=== PATIENT | male | born 1945 | race Caucasian/White ===

== ENCOUNTER 2020-09-25 09:00 | Inpatient (IN) | payer OTHER, SELFPAY ==
[~2020-09-25] VITALS: Ht 182.9 cm; Wt 103.0 kg
[2020-09-25] VITALS (41 sets, daily range): BP systolic 78–148; BP diastolic 46–103
--- NOTE | 2020-09-25 09:00 | NUR ---
PATIENT PRESENTS TO ED WITH C/O BACK PAIN, S/P FALL FROM BED . PT STATES IS 3 WEEKS POST-OP BACK SURGERY . DENIES N/V/D; SKIN IS PINK/WARM/DRY; AAOX4 LUNGS CLEAR BL; HR EVEN AND RAPID; PT DENIES ANY FEVER, CP, SOB, OR COUGH AT THIS TIME; PATIENT STATES PAIN OF 10/10 AT THIS TIME; VSS; PATIENT POSITIONED FOR COMFORT; HOB ELEVATED; BEDRAILS UP X2; BED DOWN. ER MD MADE AWARE OF PT STATUS.
[2020-09-25] MEDS ORDERED: ACET-5636 PO ×2 (09:16→15:43)
[2020-09-25] MEDS ORDERED: DIGO0.122 PO (09:16)
[2020-09-25] MEDS ORDERED: GABA300C PO ×4 (09:16→15:43)
[2020-09-25] MEDS ORDERED: ALBU-118 IH ×2 (09:16→15:43)
[2020-09-25] MEDS ORDERED: DOCU-299 PO ×2 (09:16→15:43)
[2020-09-25] MEDS ORDERED: AMIO200T65 PO (09:16)
[2020-09-25] MEDS ORDERED: ATOR10TA PO ×2 (09:16→15:43)
[2020-09-25] MEDS ORDERED: MIRABULK PO (09:16)
[2020-09-25] MEDS ORDERED: PRED20TA5 PO (09:16)
[2020-09-25] MEDS ORDERED: [UNRECOGNIZED DRUG - CODE] OP (09:16)
[2020-09-25] MEDS ORDERED: SENN-72 PO (09:16)
[2020-09-25] MEDS ORDERED: INSU100S22 SUBQ ×2 (09:16→15:43)
[2020-09-25] MEDS ORDERED: CEFE2SOL IV (09:16)
[2020-09-25] MEDS ORDERED: METH-1681 PO ×2 (09:16→15:43)
[2020-09-25] MEDS ORDERED: MAGN400S60 PO ×2 (09:16→15:43)
[2020-09-25] MEDS ORDERED: FURO-570 PO ×2 (09:16→15:43)
[2020-09-25] MEDS ORDERED: DIGOXIN 0.125 MG TAB PO ONE (09:50)
[2020-09-25] MEDS ORDERED: AMIODARONE 200 MG TAB PO ONE (09:50)
--- NOTE | 2020-09-25 09:50 | NUR ---
SPOKE WITH PER TELEPHONE.
[2020-09-25 09:56] LABS: BASOPHILS % (AUTO) 0.1 % (0.0-2.0); HEMATOCRIT 34.8 % (36-52); HEMOGLOBIN 11.3 g/dL (12.0-18.0); LYMPHOCYTES # (AUTO) 1.3 K/uL (2.0-11.5); LYMPHOCYTES % (AUTO) 9.4 % (20.5-51.1); MEAN CORPUSCULAR HEMOGLOBIN 29 pg (27-31); MEAN CORPUSCULAR HGB CONC 33 g/dL (33-37); MEAN CORPUSCULAR VOLUME 88.4 fL (80-94); MONOCYTES # (AUTO) 1.2 K/uL (0.8-1.0); MONOCYTES % (AUTO) 9.1 % (1.7-9.3); NEUTROPHILS # (AUTO) 10.8 K/uL (1.8-7.7); NEUTROPHILS % (AUTO) 81.4 % (42.2-75.2); PLATELET COUNT (AUTO) 210 K/uL (140-450); RED BLOOD CELL COUNT(AUTO) 3.94 MIL/uL (4.20-6.10); RED CELL DISTRIBUTION WIDTH 14.4 % (11.6-13.7); WHITE BLOOD COUNT (AUTO) 13.3 K/uL (4.8-10.8)
--- NOTE | 2020-09-25 10:10 | NUR ---
FELIZ SWAB SWAB OBTAINED AND SENT TO LAB
[2020-09-25 10:16] LABS: ALBUMIN 2.3 g/dL (3.4-5.0); ANION GAP 15.2 (8-16); ASPARTATE AMINOTRANSFERASE 18 U/L (15-37); CARBON DIOXIDE 28.7 mmol/L (21-32); CHLORIDE 108 mmol/L (98-107); CREATININE 2.4 mg/dL (0.6-1.3); GLUCOSE 373 mg/dL (74-106); POTASSIUM 4.9 mmol/L (3.5-5.1); SODIUM SERUM 147 mmol/L (136-145); TOTAL BILIRUBIN 1.1 mg/dL (0.0-1.0)
--- NOTE | 2020-09-25 10:16 | NUR ---
ARCELIA SWAB DONE AND WALKED TO LAB
[2020-09-25 10:17] LABS: PROTHROMBIN TIME 14.1 secs (10.8-13.4)
--- NOTE | 2020-09-25 10:20 | NUR ---
ABG DRAWN ON 4L FiO2. RESPIRATORY EFFORT HAS INCREASED. PT IS APPEARING TIRED.
[2020-09-25 10:27] LABS: UREA NITROGEN, BLOOD 63 mg/dL (7-18)
--- NOTE | 2020-09-25 10:45 | NUR ---
18G SL ESTABLISHED RIGHT UPPER ARM
--- NOTE | 2020-09-25 10:55 | NUR ---
TO CT VIA CARMEN, MONITORED
--- NOTE | 2020-09-25 11:05 | NUR ---
RETURNED FROM CT
[2020-09-25] MEDS ORDERED: ASPIRIN 325 MG TAB PO ONE (11:10)
[2020-09-25] MEDS ORDERED: AMIODARONE 450 MG in DEXTROSE 5% 250 ML IV STA (11:37)
[2020-09-25] MEDS ORDERED: FUROSEMIDE 40 MG/4 ML VIAL IVP ONE (11:40)
[2020-09-25] MEDS ORDERED: MORPHINE SULFATE 4 MG/ML SYR IVP ONE (11:40)
[2020-09-25] MEDS ORDERED: MORPHINE SULFATE 4 MG/ML SYR ONE (11:50)
[2020-09-25] MEDS ORDERED: LIDOCAINE 2% 1000 MG/50 ML VIAL INJ ONE (11:55)
[2020-09-25] MEDS ORDERED: AMIODARONE 150 MG/3 ML VIAL IV ONE (11:58)
[2020-09-25] MEDS ORDERED: LIDOCAINE MPF 2% 100 MG/5 ML VIAL INJ SCH (12:00)
--- NOTE | 2020-09-25 12:19 | NUR ---
AMIODARONE 150MG/ 100CC D5W BEGUN TO RUN OVER 10 MINUTES
--- NOTE | 2020-09-25 12:25 | NUR ---
RECEIVED TELEPHONE REPORT FROM ER NURSE MIRELA SCOTT.
--- NOTE | 2020-09-25 12:25 | NUR ---
REPORT TO SONIA MCDANIEL
--- NOTE | 2020-09-25 12:34 | NUR ---
DR. NGUYEN AT BEDSIDE FOR PARACENTESIS.
--- NOTE | 2020-09-25 13:10 | NUR ---
TO ICU VIA GURNEY. ATTACHED TO BANK CASHIER
--- NOTE | 2020-09-25 13:10 | NUR ---
PT ARRIVED AT UNIT MOVED PT TO ICU BED 7, TOLERATED WELL, PT ON 4LPM O2 VIA NC, NO SOB NOTED, LUNG SOUNDS RONCHI WITH MOIST NONPRODUCTIVE COUGH, PT CONFUSED, BUT ABLE TO LET NEEDS KNOWN. IV TO L HAND 20G PATENT INTACT SL, IV TO R AC 18G PATENT INTACT SL, IV TO R FA 20G PATENT INTACT SL. SKIN INTACT. INITIAL ASSESSMENT DONE, ALL SAFETY PRECAUTION MET, ORIENT PT TO ROOM, CALL LIGHT WITHIN REACH, WILL CONTINUE TO MONITOR.
--- NOTE | 2020-09-25 13:25 | NUR ---
DR GUERRIER AT BEDSIDE EVALUATING PT.
[2020-09-25] MEDS ORDERED: DIGOXIN 0.25 MG/ML AMP IV ONE (13:26)
[2020-09-25] MEDS ORDERED: DIGOXIN 0.25 MG/ML AMP IV SCH (13:30)
[2020-09-25] MEDS: AMIODARONE 450 MG in DEXTROSE 5% 250 ML IV SCH ×2 (13:32→19:50)
--- NOTE | 2020-09-25 13:54 | NUR ---
MRSA SWAB AND COVID SWAB TAKEN AND SENT TO LAB.
--- NOTE | 2020-09-25 14:05 | NUR ---
DISCHARGE PLANNING: THIS IS A 75 Y/O MALE PATIENT FROM [facility], WHO WAS BIBA DUE S/P MECHANICAL FALL. PAST MEDICAL HISTORY INCLUDE HTN, DM, COPD WITH BASELINE O2 REQUIREMENT OF 4 LPM/NC, A FIB. INITIAL DIAGNOSIS OF RAPID A FIB WITH RVR/NSTEMI. CURRENT LABS INCLUDE WBC 13.3, H/H 11.3/34.8, NA/K 147/4.9, BUN/CREA 63/2.4, MAG 2.5, TROP 0.077. CT HEAD SHOWED NO ACUTE INTRACRANIAL HEMORRHAGE, MASS EFFECT OR MIDLINE SHIFT. 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 CERVICAL SPINE CT SHOWED NO ACUTE FRACTURE OR DISLOCATION OF THE CERVICAL SPINE, FUSION OF THE C2 AND C3 VERTEBRA, POST SURGICAL CHANGES RELATED TO POSTERIOR DECOMPRESSION FROM C3 TO C6 WITH LAMINECTOMIES WITH A PROMINENT FLUID COLLECTION IN THE LAMINECTOMY BED, WHICH MAY REPRESENT POST OPERATIVE SEROMA WITH CSF LEAK NOT EXCLUDED. CXR SHOWED PERIHILAR AND BIBASILAR INTERSTITIAL AND PATCHY AIRSPACE OPACITIES. ON AMIODARONE DRIP, HR 151. NOT SEEN BY ATTENDING YET. TENTATIVE DC PLAN BACK TO [facility] ONCE STABLE. Addendum: 09/28/20 at 1225 by Vidhi Curry CM S/P EGD BY DR MARSHALL 08/27/2020 - PEPTIC ESOPHAGITIS. RECOMMENDED IF FLUIDS, IV ANTIBIOTICS, NG TUBE SUCTION AND IV PROTONIX AND UPPER GI SERIES TODAY - NO SIGNS OF SMALL AND LARGE BOWEL OBSTRUCTION, LEFT NEPHROLITHIASIS. Addendum: 09/29/20 at 1135 by Vidhi Curry CM DOWNGRADED FROM ICU YESTERDAY. SURGICAL CONSULT IN PLACE AND NOT SEEN YET. ON AT 2LPM/NC, O2 SAT 98% Addendum: 09/29/20 at 1450 by Vidhi Curry CM PER BUNCH TRIMMER MOLD KINGA, PATIENT'S IS REQUESTING FOR ME TO CALL HER. CONTACTED PATIENT'S MAURICIO LEAROUGHS AT [phone]. PER MAURICIO, SHE IS HOPING THAT THE PATIENT WILL NOT HAVE SURGERY BECAUSE PATIENT HAS A FIB. SHE ALSO MENTIONED THAT THE LAST SURGERY THE PATIENT HAD IT TOOK HIM A WHILE TO RECOVER. SHE ALSO MENTIONED THAT WHEN PATIENT WAS AT [facility], ON HIS FIRST NIGHT THE PATIENT FELL. SHE ALSO VOICED OUT HER CONCERN THAT SHE DOES NOT WANT THE PATIENT TO GO TO A HALF-WAY ONCE READY FOR DC, SHE STATED THAT SHE RATHER HAVE HER AT HOME. DR. HURLEY MADE AWARE. Addendum: 09/30/20 at 0911 by Vidhi Curry CM CONTACTED TERRIE [facility] AT [phone] TO PROVIDE UPDATES ON PATIENT'S CONDITION. SHE MENTIONED THAT THE PATIENT'S CALLED HER YESTERDAY TO DISCUSS DISCHARGE PLANNING TO HOME WITH HOME HEALTH AND NOT TO A SNF. INFORMED HIM THAT I GOT A CALL FROM HER WELL YESTERDAY AND I DISCUSSED IT WITH THE ATTENDING WELL. SHE ALSO STATED FOR ANY DISCHARGE NEEDS WE CAN REACH OUT TO HER AND HER FAX NUMBER IS [phone]. I ALSO REQUESTED FOR THE AUTH. SHE PROVIDED ME WITH PENDING AUTH [id number], SHE STATED THEY DO NOT APPROVE IT UNTIL PATIENT IS DISCHARGED. WILL FOLLOW UP. Addendum: 09/30/20 at 1244 by Vidhi Curry CM [facility] THAT PER PATIENT'S THEY WANT TO TAKE THE PATIENT HOME. SHE STATED "IT'S OK, WE HAVE TO RESPECT HER DECISION." Addendum: 09/30/20 at 1622 by Vidhi Curry CM RECEIVED A CALL FROM PATIENT'S MAURICIO SHARMA, REQUESTING FOR A HOSPITAL BED, WHEELCHAIR AND A SHOWER CHAIR. I ALSO DISCUSSED WITH HER PT'S RECOMMENDATIONS FOR SNF AND SHE REPLIED "NO, NOT TO SNF. I WANT TO TAKE HIM HOME." SHE ALSO MENTIONED THAT SHE GETS A LOT OF HELP AT HOME AND HOME HEALTH WILL BE FINE." INFORMED HER THAT I WILL DISCUSS IT WITH THE INSURANCE. I ALSO INFORMED HER THAT PT RECOMMENDED HOSPITAL BED, WHEELCHAIR AND WALKER. SHE CLAIMED THAT THEY HAVE THE WALKER ALREADY. TERRIE [facility] MADE AWARE. SHE STATED TO FAX OVER THE ORDER. I ALSO INFORMED HER THAT PT RECOMMENDED THOSE DME'S WELL. ORDER TRANSCRIBED AND FAXED TO [facility]. Addendum: 10/01/20 at 1202 by Vidhi Curry CM RECEIVED A CALL FROM TERRIE [facility], REQUESTING UPDATES ON THIS PATIENT. ALL INFORMATION PROVIDED. I ALSO DISCUSSED DC PLAN WITH HER. I INFORMED HER THAT I HAD A LENGTHY CONVERSATION AGAIN WITH THE YESTERDAY REGARDING PT'S RECOMMENDATION TO SNF AND THE PATIENT'S SAID NO TO SNF. PER DENNISE, SHE HAD A CALL TOO FROM HER, TELLING HER THAT SHE WANTED THE PATIENT HOME. PER DENNISE, SHE DOES THINK THAT IT WILL BE SAFE FOR THE PATIENT TO GO BACK HOME. INFORMED DENNISE THAT I EXPLAINED IT TO THE PATIENT'S WELL. DENNISE SNEED MENTIONED THAT THEY ARE WORKING ON THE DME'S REQUESTED. CONTACTED PATIENT'S MAURICIO TO DISCUSS DC PLANNING AND STILL PERSISTENT WITH TAKING THE PATIENT HOME. INFORMED HER THAT PT SAW THE PATIENT AND RECOMMENDED FOR THE PATIENT TO GO TO A SNF. SHE STATED SHE WILL WAIT WHAT DR. HURLEY WILL RECOMMEND. Addendum: 10/01/20 at 1459 by Annika Caro RN DC PLANNING: CALLED DR LYNNE Hernández WEB CONTENT & SOCIAL MEDIA MANAGER REGARDING THE CONSULT. PER DR LYNNE Hernández HE HAS SEEN PATIENT WHEN HE WAS IN ICU AND WILL SEE THE PATIENT TONIGHT. TERRIE TO FOLLOW . Addendum: 10/02/20 at 0901 by Vidhi Curry CM LATE ENTRY FOR 10/01/2020: DISCUSSED [facility] DR. HURLEY. PER DR. HURLEY PATIENT IS NOT DOING WELL, ABDOMEN IS DISTENDED AGAIN AND IS NOT TOLERATING DIET. HE REQUESTED IF HE CAN HAVE A MEETING WITH THE PATIENT'S BETWEEN [phone] 10/02/2020 TO DISCUSS PATIENT'S CONDITION. 0845: CONTACTED PATIENT'S MAURICIO AND SHE CONFIRMED THAT SHE WILL BE HERE BETWEEN [phone] WITH HER SON. PER MAURICIO DR HURLEY CALLED HER YESTERDAY TO LET HER KNOW. DR. HURLEY MADE AWARE. Addendum: 10/02/20 at 1328 by Vidhi Curry CM 1045: RECEIVED A CALL FROM [facility] INFORMING ME THAT PATIENT'S FAMILY ARE IN THE LOBBY. DR. HURLEY MADE AWARE, HE STATED HE IS IN THE UNIT. HE STATED TO HAVE THE FAMILY SEE PATIENT FIRST WHILE HE IS FINISHING HIS ROUNDS AND HE WILL MEET WITH US IN THE CONFERENCE ROOM. MEET WITH THE PATIENT'S MAURICIO AND SON LESVIA AT THE FRONT LOBBY. EXPLAINED TO THEM THE RISKS COMING IN TO THE PATIENT'S ROOM AND THEY BOTH VERBALIZED UNDERSTANDING. ESCORTED PATIENT'S MAURICIO FIRST TO SEE THE PATIENT AND AFTER 10 MINS, I ESCORTED LESVIA. MET WITH THE PATIENT'S SON AND AT THE CONFERENCE ROOM TOGETHER WITH DR. HURLEY. DR. HURLEY THOROUGHLY EXPLAINED EVERYTHING TO THE PATIENT'S FAMILY. HE SAVITA ON THE PAPER EXACTLY WHAT'S GOING ON TO THE PATIENT. HE ALSO MENTIONED THAT FOR NOW WE WILL START THE PATIENT ON TPN TO SUPPLEMENT NUTRIONAL NEEDS, WILL LET THE ABDOMEN REST OVER THE WEEKEND AND HE WILL REEVALUATE. IF THE PATIENT DOES NOT RESPOND WILL HAVE SURGERY, GI OR IR EVALUATE THE PATIENT IF G-J TUBE IS DOABLE FOR THE PATIENT. ALL QUESTIONS AND CONCERNS ADDRESSED BY DR. HURLEY. PATIENT'S FAMILY REQUESTED IF THEY CAN SEE THE PATIENT AGAIN BY THE WINDOW ON MONDAY. BUNCH TRIMMER MOLD MADE AWARE. TERRIE KAP[facility]OR OF [facility] UPDATED OF THE PATIENT'S CONDITION AND FAMILY MEETING. SHE STATED SHE WILL FOLLOW UP WITH US WITH THE PLAN NEXT WEEK AND SHE WILL REACH OUT TO DR. HURLEY WELL. Addendum: 10/05/20 at 1534 by Annika Caro RN DC PLANNING: CURRENTLY ON 8L OXYMIZER NPO AND TPN. PER DR MARIA'S NOTES DISCUSSED WITH SURGERY/ IN DETAIL SPOKE WITH [facility] IR DR PA DOES NOT GJ TUBE PROCEDURES AND UPDATED DR BROWN. AWAITING FOR DR BROWN IF HE CAN PERFORM THE PROCEDURE AT [facility]. CM TO FOLLOW Addendum: 10/06/20 at 1131 by Annika Caro RN DC PLANNING: SPOKE WITH DR NINO REGARDING THE TRANSFER TO [facility], [facility] OR ANY OTHER CONTRACTED FACILITIES. CALLED [facility] [phone] SPOKE WITH DENNISE FALCON STATED WILL DISCUSS WITH HER OBJECT ORIENTED DEVELOPER AND WILL CALL BACK. PER DENNISE THEY ARE NOT CONTRACTED WITH [facility]. FAXED TO [phone] AND AWAITING FOR THE CALL.CM TO FOLLOW. Addendum: 10/06/20 at 1451 by Annika Caro RN DC PLANNING: RECEIVED A CALL FROM DENNISE FALCON FOR [facility] STATED DR MARIA AND [facility] OBJECT ORIENTED DEVELOPER DISCUSSED THE CASE AND DECIDED THAT DR MARIA TO DISCUSS WITH PT'S ABOUT HOSPICE AND WILL CALL [facility]. CALLED DR MARIA AND LEFT A MESSAGE. CM TO FOLLOW Addendum: 10/06/20 at 1647 by Annika Caro RN DC PLANNING DR MARIA CALLED PT'S MELANI TALKED TO HER AND HER SON MORE THAN 30 MIN EXPLAINED THE CHOICE PT SON SCREAMING FROM THE BACK GROUND, UNABLE TO UNDERSTAND THEM , FINALLY MELANI STATED OK TO TALK TO HOSPICE, DR MARIA RECOMMENDED [facility] AND WILL CONTACT MELANI. CM TO FOLLOW Addendum: 10/07/20 at 0964 by Theodore Jeff SS ZACHARIAH CONTACTED JOSE FROM [facility] [phone] TO SEE IF HOSPICE HAS SPOKE TO FAMILY. PER JOSE, FAMILY HAS NOT YET BEEN CONTACTED. ZACHARIAH PROVIDED PHONE NUMBER TO MAURICIO SHARMA [phone]. JOSE STATED THAT HE WILL CONTACT ZACHARIAH ONCE FAMILY IS CONTACTED. Addendum: 10/07/20 at 1126 by Annika Caro RN DC PLANNING: [facility] CONTACTED PT'S MELANI , AND SHE SEEMS TO BE DENIAL AND STATED SHE DOES NOT WANT HER TO AND REFUSED HOSPICE. CALLED [facility] SPOKE WITH CM DENNISE STATED SHE IS TRYING TO GET PATIENT TO [facility] AND HOUSE MABEL IS ASKING FOR COVID TEST. THE COVID TEST WE HAD IS FROM THE 09/25 ORDERED THE RAPID AND WILL FAX IS TO [facility]. I ASKED DENNISE IF WE CAN REQUEST TO ANOTHER HOSPITAL PER DENNISE THEY ARE NOT CONTRACTED WITH [facility], [facility] OR [facility], AND THE [facility] OBJECT ORIENTED DEVELOPER WANTED PT TO GO TO [facility]. HOW EVER [facility] IS CONTRACTED WITH [facility] AND [facility] AND PER DENNISE WILL ASK THE MD TO FAX IT TO THOSE 2 HOSPITALS. CALLED PT'S MELANI AND UPDATED HER . CM TO FOLLOW Addendum: 10/07/20 at 1410 by Annika Gordo RN DC PLANNING: RAPID COVID TEST NEGATIVE FAXED TO [facility] , SPOKE WITH LORE BYRD STATED NO BED AVAILABLE THEIR ER IS BUSY. CALLED [facility] [phone] SPOKE WITH MONICA CHEESE GRADER STATED NEEDS AUTH FROM [facility] BEFORE HE START THE CASE. CALLED [facility] SPOKE WITH DENNISE REQUESTING THE AUTH FOR [facility]. PER DENNISE SHE IS UNABLE TO GIVE AUTH TO [facility] BECAUSE HER OBJECT ORIENTED DEVELOPER WANTED PT TO GO TO [facility] AND WILL DISCUSS WITH AND CALL BACK.CM TO FOLLOW. Addendum: 10/07/20 at 1559 by Theodore Jeff SS ZACHARIAH CONTACTED [facility] AND ARRANGED WILL CALL TRANSPORTATION. ZACHARIAH SPOKE WITH LAINEY AT [facility] FOR TRANSPORTATION TO [facility]. ZACHARIAH INFORMED LAINEY THAT ROOM NUMBER WAS NOT YET GIVEN. ZACHARIAH PROVIDED RAY [facility]SP[facility] AUTH #[id number]. Addendum: 10/07/20 at 1610 by Annika Caro RN DC PLANNING: SPOKE WITH DR MARIA STATED HE WILL BE THE ACCEPTING DR AT [facility] AND THE SURGEON WILL BE DR FRY. NOTIFIED [facility] PER DENNISE SHE PROVIDE THE AUTH# FOR [facility] AND FOR TRANSPORT AUTH # FOR [facility] [id number]. CALLED [facility] SPOKE WITH SUZAN TORREZ SUP STATED THEY HAVE NO BED AVAILABLE AT THIS TIME, PROVIDE UNIT NUMBER AND PLACE THE TRANSPORT WILL CALL WITH CM TO FOLLOW Addendum: 10/08/20 at 0927 by Annika Caro RN DC PLANNING: CALLED [facility] SPOKE WITH ROCHELLE TORREZBUNCH TRIMMER MOLD STATED NO BED AVAILABLE AT THIS TIME THEIR ER HAS 15 PATIENT WAITING TO BE ADMITTED. PER ROCHELLE THEY RECEIVED THE AUTH FROM [facility] AND ONCE THEY HAVE A BED WILL CALL CM TO FOLLOW. Addendum: 10/08/20 at 1620 by Annika Caro RN DC PLANNING: RECEIVED A CALL FROM PT'S MELANI STATED DR OVIEDO CALLED HER AND DISCUSSED THE OTHER OPTION TO INSERT A TEMPORARY TUBE THROUGH NGT TO J-TUBE AND START FEEDING FOR 2 WEEKS . MELANI AGREED AND UNDERSTOOD AND SEEMS VERY HAPPY. I ASKED HER ABOUT THE TRANSFER TO [facility], SHE SAID SHE CALLED AND HOUSE SUP TOLD HER PEOPLE ARE WAITING AT THE PARKING LOT AND IT WON'T HAPPEN TONIGHT, HOWEVER I ASKED HER JUST INCASE WHAT WOULD SHE WANT IF [facility] CALL TO CANCEL IT OR TRANSFER , SHE WANTED US TO ASK DR OVIEDO AND SHE WILL AGREE WITH HIS DECISION. MELANI ALSO TALKED TO DR MARIA AND SHE AGREED WITH MD'S DECISION. CM TO FOLLOW Addendum: 10/09/20 at 1226 by nAnika Caro RN DC PLANNING: PT HAS A SCHEDULE FOR EGD TO INSERT NG TO J TUBE FOR FEEDING BY DR OVIEDO NO TIME YET. CALLED [facility] SPOKE WITH DENNISE AND DISCUSSED THE DC PLAN AFTER THE TUBE INSERTION, AND MD WANTED TO TRY IT FOR 2 WEEKS . SNF MIGHT NOT BE APPROPRIATE FOR NGT CARE BECAUSE PT MIGHT NEED RESTRAINTS AND NO SNF ARE TAKING PT WITH RESTRAINTS AND RECOMMENDED LTAC BECAUSE MIGHT BE ABLE TO INSERT THE G-J TUBE WELL IF NEEDED. HERSON KAPOOR WILL PRESENT IT TO HER OBJECT ORIENTED DEVELOPER AT THE SAME TIME I INFORMED DR MARIA TO RECOMMEND LTAC TO [facility]. CALLED [facility] SPOKE WITH LORE HEAD STATED SHE HAS 25 PEOPLE ARE WAITING FOR BED MOST LIKELY NOT TODAY. FAXED TO CONTRACTED FACILITY [facility] AND [facility]. CM TO FOLLOW Addendum: 10/09/20 at 1628 by Jen Urias CM [facility] PLACED CALL TO PT'S ; [facility] UPDATED PT'S ON ORDER FOR LTAC EVALUATION. PTS' WOULD LIKE TO SPEAK WITH THE LTAC LIAISON. PT'S STATES THAT SHE IS AGREEABLE TO A LTAC EVALUATION. PT'S WOULD LIKE PT TO GO TO THE [place] LOCATION; PT'S LIVES IN [place]. [facility] HAS UPDATED CM WHO WILL REACH OUT TO LTAC LIAISON. Addendum: 10/12/20 at 1145 by Annika Caro RN DC PLANNING: [facility] SPOKE WITH DENNISE, NOTIFIED HER THAT [facility] IS ACCEPTING PATIENT AND NEEDS AUTHORIZATION. PER DENNISE SHE WILL HAVE A MEETING AT 2 PM AND WILL DISCUSS WITH HER MEDICAL DR AND WILL CALL BACK AT THE SAME TIME I SPOKE WITH DR KINGSLEY TO REACH OUT THE [facility] TO DISCUSS THE NEED FOR LTAC. [facility] WANT[facility] TO SEND PT TO [facility] BUT MELANI WANTED [facility] AND CALLING THE INSURANCE TO GET APPROVAL TO [place]. FAXED TO [facility] ([facility]). CM TO FOLLOW Addendum: 10/12/20 at 1549 by Annika Caro RN DC PLANNING: CALLED [facility] SPOKE WITH DENNISE STATED THE CUTTER GRINDER OPERATOR AND HERSELF TALKED TO PT'S AND AT THIS TIME THEY ARE WAITING FOR THE PEER TO PEER DISCUSSION. I UPDATED HER PB IS ON THE LOW SIDE 85/58 , PRESSURE ULCER PER DENNISE WAITING FOR MD -. CALLED DR KINGSLEY TO DISCUSSED THE NEED FOR LTAC . CM TO FOLLOW Addendum: 10/13/20 at 1124 by Aranza Jack CM TERRIE Roblero discussed with Dr Kingsley, pt pulled out NGT, plan for LTAC will do Md to . New order for aide aguayo. Called & spoke with Dennise FALCON @ [place], ph [phone], states MD to was done already this am around 1030 & plan for SNF, no LTAC auth'd. Per Dennise per Md kinsey Kingsley is getting GI consult to see pt & if ok for NGT to be replaced & dc to SNF with NGT then plan for dc to SNF. Per Dennise pt needs to be on 4L or less to dc to SNF & no restraints. They will give 3days of sitter to SNF. If pt requires restraints, will need to stay here until able to be off restraints, will not auth LTAC. States that her business manager college or university has spoken with pt's regarding no LTAC & auth for SNF. Per Dennise Farley [facility] has accepted pt with NGT, she will f/u with SNF to make sure pt accepted & have bed. GI pending, swallow re-eval pending. Addendum: 10/14/20 at 1620 by Annika Caro RN DC PLANNING: PT FAILED SWALLOWING EVAL. DR OVIEDO ORDERED TO RESTART TPN AND WILL FOLLOW UP ON MONDAY. NOTIFIED [facility] SPOKE WITH DENNISE STILL DENIED LTAC. CM TO FOLLOW Addendum: 10/16/20 at 1446 by Annika Caro RN DC PLANNING: DR OVIEDO CANCELED THE ENTEROSCOPY WITH JEJUNOSTOMY, BECAUSE PT STARTED EATING ,ADEQUATE ORAL INTAKE AT THIS TIME. SPOKE WITH DR KINGSLEY ADVANCED DIET TO FULL LIQUID AND DC PLAN TO GO TO SNF. [facility] WILL ACCEPT PATIENT CAN GO TO ROOM 37A # TO GIVE REPORT [phone] . I HAD A LONG TALK WITH MELANI HIS EXPLAINED THAT PT NEEDS 24 HR CARE AND IF SHE HAS HELP PER MELANI SHE CAN NOT TAKE CARE OF HIM AT HOME BUT STILL ITS HARD FOR HER TO DECIDE I EXPLAINED BY TOMORROW SHE HAS TO DECIDE, IF SHE WANTED HOME WITH 24 HR CARE SHE HAS TO SIGN HOSPICE. MELANI AGREED AND OK TO DC TO SNF TOMORROW. Addendum: 10/16/20 at 1616 by Annika Caro RN DC PLANNING: STILL WAITING FOR [facility] FOR AUTH # FOR TRANSPORT PER JOSE WILL PLACE IT WILL CALL FOR TOMORROW. PLS CALL [facility] AT [phone] FOR TRANSPORT DC PLAN TO GO TO [facility].
--- NOTE | 2020-09-25 14:43 | NUR ---
Patient will be admitted to care of DR ARECHIGA. Admited to ICU. Will go to room 07. Belongings list completed. Report to BIMAL SCOTT.
--- NOTE | 2020-09-25 14:50 | NUR ---
TALKED TO DR. LYNNE Hernández REGARDING PT AMIODARNE DRIP, PER DR BATISTA TO RUN THE DRIP @ 1MG/HR PER PROTOCOL. AND TO ORDER CARDIZEM 10MG IVP RIGHT NOW AND TO MONITOR PT HR IF HR DOES NOT GO BELOW 120, PER DR TO GIVE ANOTHER DOSE OF CARDIZEM 10MG IVP. WILL PUT IN ORDER AND CONTINUE WITH ORDERS.
[2020-09-25] MEDS ORDERED: DILTIAZEM 25 MG/5 ML VIAL IVP SCH ×2 (15:15→16:45)
[2020-09-25] MEDS ORDERED: DOCUSATE SODIUM 100 MG GELCAP PO PRN (15:45)
[2020-09-25] MEDS ORDERED: DEXTROSE 50% 50 ML SYR IVP PRN (16:55)
[2020-09-25] MEDS: BLOOD GLUCOSE MONITORING 1 DEV DEV FS SCH ×2 (17:16→21:00)
[2020-09-25] MEDS: INSULIN LISPRO SLIDING SCALE 100 UNITS/ML VIAL SUBQ PRN (17:16)
[2020-09-25] MEDS: methocarbamoL 500 MG TAB PO SCH ×2 (17:29→20:07)
--- NOTE | 2020-09-25 17:29 | NUR ---
DUE MEDICATION GIVEN, PT TOLERATED WELL, BLOOD SUGAR 386, 10 UNITS HUMALOG INSULIN GIVEN PER PROTOCOL. WILL CONTINUE TO MONITOR.
--- NOTE | 2020-09-25 17:55 | NUR ---
PT'S AT [facility], BABY CAMERA MONITOR TAKEN TO HER TO SEE PT ON MONITOR WHILE ON THE PHONE WITH PT AND .
--- NOTE | 2020-09-25 19:15 | NUR ---
ENDORSED PT TO CALL OR CONTACT CENTRE COACH NURSE BRANDON SCOTT FOR CONTINUOUS OF CARE
--- NOTE | 2020-09-25 19:38 | NUR ---
DR LYNNE Hernández IN THE UNIT; UPDATED ON PTS PRESENT CONDITION.QUESTIONS ANSWERED.MD AWARE HR UP TO 150'S AND LOW BP ; TO START LEVOPHED DRIP.MD ALSO AWARE THAT PT IS STILL ON AMIODARONE DRIP
[2020-09-25] MEDS ORDERED: NOREPINEPHRINE 4 MG in DEXTROSE 5% 250 ML IV PRN (19:40)
[2020-09-25] MEDS: NACL 0.9% 1,000 ML IV SCH (19:45)
--- NOTE | 2020-09-25 20:00 | NUR ---
RECEIVED REPORT FROM DAY SHIFT RN. PATIENT IS A & O X [address] AFEBRILE. IRREGULAR HEART RHYTHM. PULSES +3 UPPER AND LOWER BILATERAL EXTREMITIES. AUSCULTATED CRACKLES IN LUNGS. PATIENT IS ON NC @ 4L/MIN. PATIENT IS NPO DUE TO MD ORDERS. LARGE/ROUND DISTENDED ABDOMEN, BS ACTIVE. PATIENT IS INCONTINENT. PATIENT HAS SCAR ON POSTERIOR NECK S/P SX. REDNESS BILATERALLY TO HEELS. SKIN WARM AND DRY BUT BILATERAL HANDS AND FEET ARE COLD TO TOUCH. OFFERED AN EXTRA BLANKET. PATIENT DENIES PAIN AND DENIES BEING COLD. PERIPHERAL IV ACCESS TO RT AC 18 G RUNNING AMIODARONE 0.5 MCG/HR. ASYMPTOMATIC, PATENT AND INTACT. IV ACCESS TO RT FA 20G AND LT HAND 20G. BOTH HEP LOCK, ASYMPTOMATIC, PATENT AND INTACT. NO S/S OF INFILTRATION, REDNESS OR PAIN. SAFETY MEASURES IN PLACE, BED LOW AND LOCKED, SIDE RAILS UP. CALL LIGHT WITHIN REACH. WILL CONTINUE TO MONITOR.
[2020-09-25] MEDS ORDERED: CRUSHER, PILL MC ONE (20:03)
[2020-09-25] MEDS: ATORVASTATIN 20 MG TAB PO SCH (20:07)
[2020-09-25] MEDS: GABAPENTIN 300 MG CAP PO SCH (21:00)
--- NOTE | 2020-09-25 21:20 | NUR ---
PATIENT WENT TO CT. MONITORS ATTACHED. OXYGEN IN PLACE ORDERED.
--- NOTE | 2020-09-25 21:50 | NUR ---
PATIENT CAME BACK FROM CT OF ABDOMEN AND PELVIS. NO INCIDENT NOTED.
[2020-09-26] VITALS (93 sets, daily range): BP systolic 85–153; BP diastolic 41–119
--- NOTE | 2020-09-26 | NUR ---
REPOSITIONED PATIENT, REORIENTED PT, DENIES PAIN/SOB. PATIENT ON NC @4LPM. OXYGEN SATURATION 90s. WILL CONTINUE TO MONITOR.
--- NOTE | 2020-09-26 03:10 | NUR ---
CALLED DR BATISTA, UPDATED ABOUT PT'S CONDITION. MADE AWARE HR UP TO 160s. PT STILL ON AMIODARONE DRIP. PT CLAIMED HAVING CHEST/GENERALIZED PAIN. B/P 120s. ORDERED TO START CARDIZEM DRIP. MD AWARE LEVOPHED DRIP NOT STARTED.
[2020-09-26] MEDS ORDERED: DILTIAZEM 125 MG/25 ML VIAL IV ONE (03:11)
[2020-09-26] MEDS: DILTIAZEM 125 MG in DEXTROSE 5% 100 ML IV SCH ×2 (03:20→04:26)
--- NOTE | 2020-09-26 03:30 | NUR ---
PT INCONTINENT, CLEANED PT, NEW LINEN AND BLANKETS, DENIES PAIN. WILL CONT TO MONITOR
--- NOTE | 2020-09-26 04:26 | NUR ---
INCREASED CARDIZEM DRIP TO 15MG/HR. PT LATEST VITALS FOLLOWS: B/P: 123/65, HR: 127, SPO2: 98, RR: 40. ENCOURAGED PT TO DEEP BREATHE/RELAX. WILL CONT. TO MONITOR.
--- NOTE | 2020-09-26 05:49 | NUR ---
PT HAD EPISODE OF INCONTINENCE, PT CLEANED. NEW GOWN, CHUX. PT UPSET/SCREAMING BECAUSE HE IS NPO.
[2020-09-26 05:54] LABS: ALBUMIN 2.3 g/dL (3.4-5.0); ASPARTATE AMINOTRANSFERASE 24 U/L (15-37); CARBON DIOXIDE 31.7 mmol/L (21-32); CHLORIDE 109 mmol/L (98-107); CREATININE 2.1 mg/dL (0.6-1.3); GLUCOSE 289 mg/dL (74-106); POTASSIUM 3.7 mmol/L (3.5-5.1); SODIUM SERUM 148 mmol/L (136-145); TOTAL BILIRUBIN 0.6 mg/dL (0.0-1.0)
[2020-09-26 05:57] LABS: BASOPHILS # (AUTO) 0.1 K/uL (0.00-0.22); BASOPHILS % (AUTO) 0.5 % (0.0-2.0); EOSINOPHILS # (AUTO) 0.1 K/uL (0-0.4); EOSINOPHILS % (AUTO) 0.6 % (0.0-4.0); HEMATOCRIT 33.9 % (36-52); HEMOGLOBIN 10.9 g/dL (12.0-18.0); LYMPHOCYTES # (AUTO) 1.3 K/uL (2.0-11.5); LYMPHOCYTES % (AUTO) 9.6 % (20.5-51.1); MEAN CORPUSCULAR HEMOGLOBIN 28 pg (27-31); MEAN CORPUSCULAR HGB CONC 32 g/dL (33-37); MEAN CORPUSCULAR VOLUME 88.5 fL (80-94); MONOCYTES % (AUTO) 7.9 % (1.7-9.3); NEUTROPHILS # (AUTO) 10.8 K/uL (1.8-7.7); NEUTROPHILS % (AUTO) 81.4 % (42.2-75.2); PLATELET COUNT (AUTO) 231 K/uL (140-450); RED BLOOD CELL COUNT(AUTO) 3.83 MIL/uL (4.20-6.10); WHITE BLOOD COUNT (AUTO) 13.3 K/uL (4.8-10.8)
[2020-09-26 06:00] LABS: UREA NITROGEN, BLOOD 71 mg/dL (7-18)
--- NOTE | 2020-09-26 06:25 | NUR ---
CRITICAL LABS CALLED TO DR. NINO WITH NO CHANGE IN ORDERS. UPDATED ABOUT PT CONDITION. MADE HIM AWARE ABOUT THE CT ABDOMEN/PELVIS RESULT. IMPRESSION: 1.DISTENDED STOMACH SUSPICIOUS FOR A GASTRIC OUTLET OBSTRUCTION 2. FLUID WITHIN THE DISTAL ESOPHAGUS LIKELY REPRESENTING REFLUX FROM THE DISTAL STOMACH. 3. NON VISUALIZED APPENDIX LIMITING EVALUATION. MD MADE AWARE ABOUT PT BEING UPSET AND SCREAMING FOR FOOD. MD STATED HE CANNOT GIVE A DIET ORDER AT THIS TIME DUE TO SUSPICIOUS GASTRIC OBSTRUCTION. WILL CONTINUE TO MONITOR.
--- NOTE | 2020-09-26 07:15 | NUR ---
RECEIVED HANDOFF FROM BUSINESS PERFORMANCE ANALYST RN. PT IS A&OX2. PT IS ON 4 L NC. PT IS A FIB ON THE MONITOR. PT IS NPO EXCEPT MEDS. FOR ACCESS PT HAS RAC 18 G, R FA 20 G AND L H 22 G. AMIODARONE IS RUNNING AT 0.5 MG/MIN, CARDIZEM IS RUNNING AT 15 MG/HR. NS IS RUNNING AT 75 ML/HR. PT HAS DIAPER FOR VOIDING. HOB IS 30 DEG WITH BED IN LOW LOCKED POSITION. WILL CONTINUE TO MONITOR.
[2020-09-26] MEDS: BLOOD GLUCOSE MONITORING 1 DEV DEV FS SCH ×4 (07:30→21:44)
[2020-09-26] MEDS: INSULIN LISPRO SLIDING SCALE 100 UNITS/ML VIAL SUBQ PRN ×3 (08:00→17:05)
[2020-09-26] MEDS: FUROSEMIDE 40 MG TAB PO SCH (08:58)
[2020-09-26] MEDS: NACL 0.9% 1,000 ML IV SCH ×2 (08:58→21:15)
[2020-09-26] MEDS: methocarbamoL 500 MG TAB PO SCH ×4 (08:59→21:27)
[2020-09-26] MEDS: MAGNESIUM HYDROXIDE 2400 MG/30 ML UDC PO SCH (08:59)
[2020-09-26] MEDS: GABAPENTIN 300 MG CAP PO SCH ×2 (09:00→21:29)
[2020-09-26] MEDS ORDERED: ENOXAPARIN 40 MG/0.4 ML SYR SUBQ SCH (09:00)
[2020-09-26] MEDS ORDERED: DIGOXIN 0.25 MG TAB PO SCH (09:00)
--- NOTE | 2020-09-26 10:06 | NUR ---
ADMINISTERED SCHEDULED 9:00AM MEDICATIONS WITH MINIMAL WATER CONSUMPTION. CLEANED PT. BEDDING, PT ABLE TO REPOSITION SELF. ASSESSED GLUCOSE WHICH WAS 313, 8 UNITS OF COVERAGE WERE ADMINISTERED. PT. A/O X2: TO NAME AND PLACE. CRACKLES ALYSSA. LUNGS CURRENTLY AT 4 L NC,PT TOLERATING TREATMENT. S1, S2 NOTED. NORMAL BOWEL SOUNDS, ABD HARD AND DISTENDED, PT DOES NOT COMPLAIN OF ABD PAIN AT THIS TIME. IV LINES DRY,INTACT, INFUSING NS 75ML/HR. RADIAL AND PEDAL PULSES+2. PLACED NON SKID SOCKS D/T PT. COMPLAINING OF COLD FEET. PT CURRENTLY NPO, OFFERED ORAL CARE AND ASKED TO DO IT LATER. LEFT PT RESTING COMFORTABLY.
--- NOTE | 2020-09-26 10:58 | NUR ---
PT REQUESTED COLD WASH CLOTHS TO CLEANSE SELF, PROVIDED. PT RESTING COMFORTABLY
--- NOTE | 2020-09-26 11:30 | NUR ---
PATIENT HAS BEEN SCREENED AND CATEGORIZED HIGH NUTRITION RISK. PATIENT WILL BE SEEN WITHIN 1-2 DAYS OF ADMISSION. 09/26/20 09/27/[address]
[2020-09-26] MEDS ORDERED: PANTOPRAZOLE 40 MG INJ VIAL IVP SCH (11:35)
[2020-09-26] MEDS ORDERED: SODIUM PHOSPHATE 118 ML ENEM RC SCH (11:39)
--- NOTE | 2020-09-26 13:13 | NUR ---
R. FA IV 20G REMOVED AFTER NOTICING INFILTRATION, EDEMATOUS, NO ERYTHEMA. PT DENIES PAIN
--- NOTE | 2020-09-26 13:25 | NUR ---
PT VERY DROWSY, ENTERED ROOM TO INFORM HIM HIS ENEMA WAS TO BE ADMINISTERED, PT UNABLE TO MAINTAIN AWAKE, KEPT CLOSING EYES AND WOULD NOT ANSWER, CONTINUED TO ATTEMP TO AWAKE BY PERFORMING STERNAL RUB AND WOULD OPEN UP EYES AND RETURN TO CLOSE, FINGER STICK GLUCOSE CHECK WAS PERFOMED WITH LEVEL OF 328. PUPIL CHECK WAS PERFORMED, PERRLA, ASKED TO SQUEEZE HAND WHICH SHOWED STRENGTH 4/5. PT BEGAN TO OPEN EYES AND STARTED FOLLOWING COMMANDS, URINAL WAS PROVIDED FOR VOIDING, PT WAS POSITIONED RIGHT LATERAL RECUMBENT WITH L. KNEE TO CHEST FOR ENEMA ADMINISTRATION. FLEET ENEMA ADMINISTERED OVER 3 MIN PERIOD.PT TOLERATED PROCEDURE WELL. Addendum: 09/26/20 at 1559 by Mony Rosales RN RN CORRECTION: PT TIME [id number]
--- NOTE | 2020-09-26 13:36 | NUR ---
PT WAS CONSULTED BY DR. OVIEDO [facility], WHO INSERTED AN NG TUBE FOR DECOMPRESSION, ASSISTED PHYSICIAN WITH PROCEDURE. APPROXIMATELY 1500ML WAS DRAINED, PT. WAS PLACED ON INTERMITTED SUCTION. NG TUBE WAS SECURED TO NOSE. PT TOLERATED THE PROCEDURE WELL. Addendum: 09/26/20 at 1339 by Mony Rosales RN RN INSERTION WAS PLACED AT 1200
--- NOTE | 2020-09-26 14:05 | NUR ---
09/26/20 RD INITIAL ASSESSMENT COMPLETED PLEASE REFER TO NUTRITION ASSESSMENT UNDER CARE ACTIVITY FOR ESTIMATED NUTRITIONAL NEEDS. 1. WHEN/IF MEDICALLY APPROPRIATE RECOMMEND CLEAR LIQUID DIET AND ADVANCE TO [facility] 60 GM REGULAR DIET TOLERATED 2. RD TO FOLLOW-UP 2-3 DAYS, HIGH RISK ALBERTINA RUDD, ANGELIKA
--- NOTE | 2020-09-26 14:19 | NUR ---
PT REQUESTED TO SPEAK TO , MELANI ,WHO WAS ABLE TO CONFIRM IDENTITY BY ANSWERING ID INFORMATION OF PT,.CONTACTED HER AND SPOKE FOR A FEW, PT REMOVED DENTURES AND ASKED FOR THEM TO BE CLEANED WITH TOOTHPASTE WHICH I DID, PT REPLACED DENTURES AND CLAIMS FEEL BETTER COMFORTABLE AND MOUTH FEELS FRESH WHICH HELPS HIM FEEL MORE COMFORTABLE
--- NOTE | 2020-09-26 16:54 | NUR ---
FINGER GLUCOSE 263. PT L. HEEL HAS 2X2CM BLANCHABLE UNBROKEN SKIN AREA. HAS NON SKID SOCKS IN PLACE. COMFORTABLE IN BED.
--- NOTE | 2020-09-26 17:08 | NUR ---
ADMINISTERED 6 UNITS OF HUMALOG ON R. DELTOID SUBCUTANEOUS. GAVE ROBAXIN 500MG, CUT PILL IN HALF, PT HAS NG TUBE IN PLACE WHICH MAKES IT DIFFICULT TO SWALLOW, HAD DIFFICULTY SWALLOWING HALF A PILL, CRUSH THE OTHER HALF FOR SWALLOWING PURPOSES. PERFORMED ORAL CARE WITH WATER, PER PT. MAKES HIS MOUTH FEEL BETTER.
[2020-09-26] MEDS: DILTIAZEM 30 MG TAB PO SCH (18:30)
--- NOTE | 2020-09-26 18:51 | NUR ---
ADMINISTERED CARDIZEM 30MG, PILL WAS CRUSHED WITH 10ML OF WATER DUE TO PT.'S INABILITY TO SWALLOW WITH NG TUBE PLACED, ROCEPHIN IV ADMINISTERED PER MD ORDER, PROVIDED PT. WITH ORAL CARE AND GROOMING, NO BOWEL MOVEMENT YET SINCE ENEMA WAS ADMINISTERED.
--- NOTE | 2020-09-26 19:15 | NUR ---
HANDOFF GIVEN TO AUTO APPRAISER RN.
--- NOTE | 2020-09-26 19:16 | NUR ---
RECIEVED ENDORSEMENT FROM DAY SHIFT RN, PT A&0X2, PT RESTING, PT A-FIB ON MONITOR, PERIPHERAL PULSES PALPABLE, ABD DISTENDED, SUCTIONING CLAMPED, NGT TO R-NARE, CRACKLES BILATERAL, NC ON 4L, PT INCONTINENT, RAC 18 GAUGE, RH 22 GAUGE, RUNNING NS 75MLS/HR, PT HAS SCAR ON POSTERIOR NECK, SKIN INTACT AND DRY/WARM, REDNESS ON HEAL THAT IS BLANCHABLE, PT SHOWING SIGNS OF ACUTE DISTRESS, SAFETY MEASURES IN PLACE, WILL CONTINUE WITH CURRENT POC AND MONITORING
--- NOTE | 2020-09-26 20:03 | NUR ---
PT SPO2 91% ON 4LNC PT DENIES SOB WILL CONTINUE TO MONITOR
[2020-09-26] MEDS: PANTOPRAZOLE 40 MG INJ VIAL IVP SCH (21:21)
--- NOTE | 2020-09-26 21:30 | NUR ---
REPOSITIONED PT, PT AFEBRILE, ADMINISTRED 2100H MEDIATIONS PER ORDERED, PT BLOOG GLUCOSE 131, PT SHOWING NO SIGNS OF ACUTE DISTRESS, SAFETY MEASURES IN PLACE, WILL CONTINUE TO MONITOR
[2020-09-26] MEDS: AMIODARONE 200 MG TAB PO SCH (21:31)
[2020-09-26] MEDS: ATORVASTATIN 20 MG TAB PO SCH (21:31)
[2020-09-27] VITALS (38 sets, daily range): BP systolic 103–139; BP diastolic 50–96
--- NOTE | 2020-09-27 | NUR ---
TURNED AND REPOSITIONED PATIENT WITH MODERATE ASSISTANCE.
--- NOTE | 2020-09-27 00:15 | NUR ---
ADMINISTERED 0000H MEDICATION PER ORDERED, REPOSITIONED PT, PT REQUESTED ICE CHIPS, PT SHOWING NO SIGNS OF ACUTE DISTRESS, SAFETY MEASURES IN PLACE, WILL CONTNUE TO MONITOR
[2020-09-27] MEDS: DILTIAZEM 30 MG TAB PO SCH ×4 (00:22→18:19)
--- NOTE | 2020-09-27 02:10 | NUR ---
PT ASLEEP AND RESTING, PT SHOWING NO SIGNS OF ACUTE DISTRESS, SAFETY MEASURES IN PLACE, WILL CONTINUE TO MONITOR
--- NOTE | 2020-09-27 05:10 | NUR ---
REPOSITIONED PT, PT REQUESTING ICE SHIPS AND WATER, PT SHOWING NO SIGNS OF ACUTE DISTRESS, SAFETY MEASURES IN PLACE, WILL CONTINUE TO MONITOR
[2020-09-27 06:17] LABS: BASOPHILS % (AUTO) 0.1 % (0.0-2.0); EOSINOPHILS # (AUTO) 0.3 K/uL (0-0.4); EOSINOPHILS % (AUTO) 1.8 % (0.0-4.0); LYMPHOCYTES # (AUTO) 1.1 K/uL (2.0-11.5); LYMPHOCYTES % (AUTO) 6.7 % (20.5-51.1); MEAN CORPUSCULAR HEMOGLOBIN 29 pg (27-31); MEAN CORPUSCULAR HGB CONC 32 g/dL (33-37); MEAN CORPUSCULAR VOLUME 89.3 fL (80-94); MONOCYTES # (AUTO) 0.9 K/uL (0.8-1.0); MONOCYTES % (AUTO) 5.5 % (1.7-9.3); NEUTROPHILS # (AUTO) 13.7 K/uL (1.8-7.7); NEUTROPHILS % (AUTO) 85.9 % (42.2-75.2); PLATELET COUNT (AUTO) 243 K/uL (140-450); RED BLOOD CELL COUNT(AUTO) 3.47 MIL/uL (4.20-6.10); RED CELL DISTRIBUTION WIDTH 14.7 % (11.6-13.7); WHITE BLOOD COUNT (AUTO) 15.9 K/uL (4.8-10.8)
--- NOTE | 2020-09-27 06:30 | NUR ---
PT BLOOD GLUCOSE 201, INSULIN HELF FOR EGD
[2020-09-27 06:59] LABS: ANION GAP 15.7 (8-16); CARBON DIOXIDE 27.6 mmol/L (21-32); CHLORIDE 113 mmol/L (98-107); CREATININE 1.7 mg/dL (0.6-1.3); GLUCOSE 240 mg/dL (74-106); POTASSIUM 3.3 mmol/L (3.5-5.1); SODIUM SERUM 153 mmol/L (136-145); UREA NITROGEN, BLOOD 53 mg/dL (7-18)
[2020-09-27] MEDS: BLOOD GLUCOSE MONITORING 1 DEV DEV FS SCH ×4 (07:09→21:00)
[2020-09-27 07:22] LABS: MAGNESIUM 2.6 mg/dL (1.8-2.4); PHOSPHORUS 3.4 mg/dL (2.5-4.9)
--- NOTE | 2020-09-27 07:39 | NUR ---
ENDORSED TO DAY SHIFT RN FOR CONTINUITY OF CARE
--- NOTE | 2020-09-27 07:40 | NUR ---
RECEIVED BEDSIDE REPORT FROM EMS INSTRUCTOR NURSE MANUEL RN, PT RESTING, NO DISTRESS NOTED, PT ON 4LPM O2 VIA NC, NO SOB NOTED, IV TO R AC 18 G PATENT INTACT SL, IV TO L HAND 20G PATENT INTACT, INFUSING NS @ 75ML/HR, INFUSING WELL, PT AWAKE ALERT ABLE TO LET NEEDS KNOWN, PT SLEEPING AT THIS MOMENT, DENIES ANY PAIN, INITIAL ASSESSMENT DONE, ALL SAFETY PRECAUTION MET, CALL LIGHT WITHIN REACH, WILL CONTINUE TO MONITOR.
[2020-09-27] MEDS: GABAPENTIN 300 MG CAP PO SCH ×2 (09:00→21:54)
[2020-09-27] MEDS: PANTOPRAZOLE 40 MG INJ VIAL IVP SCH ×2 (09:00→21:53)
[2020-09-27] MEDS: FUROSEMIDE 40 MG TAB PO SCH (09:00)
[2020-09-27] MEDS: MAGNESIUM HYDROXIDE 2400 MG/30 ML UDC PO SCH (09:00)
[2020-09-27] MEDS: AMIODARONE 200 MG TAB PO SCH ×2 (09:00→12:54)
[2020-09-27] MEDS: DIGOXIN 0.125 MG TAB PO SCH (09:00)
[2020-09-27] MEDS: methocarbamoL 500 MG TAB PO SCH ×4 (09:00→21:55)
--- NOTE | 2020-09-27 09:00 | NUR ---
DUE MEDICATION IVP GIVEN, PT TOLERATED WELL, PO MEDICATIONS HELD D/T PT HAVING EGD SCHEDULED AT 0915. WILL CONTINUE TO MONITOR.
[2020-09-27] MEDS ORDERED: MIDAZOLAM 5 MG/5 ML VIAL ONE (09:33)
[2020-09-27] MEDS ORDERED: fentaNYL citrate 0.05 MG/ML VIAL ONE ×2 (09:33→09:42)
--- NOTE | 2020-09-27 09:34 | NUR ---
OR TECH AT BEDSIDE, PT EGD WILL BE DONE AT BEDSIDE BY DR OVIEDO.
[2020-09-27] MEDS ORDERED: MIDAZOLAM 2 MG/2 ML VIAL ONE (09:42)
--- NOTE | 2020-09-27 09:42 | NUR ---
VERSED 2MG AND FENTANYL 50MCG GIVEN IVP PER DR OVIEDO ORDER FOR PROCEDURE.
--- NOTE | 2020-09-27 10:00 | NUR ---
PROCEDURE DONE, PT TOLERATED WELL, PER DR OVIEDO TO HAVE PT ON INTERMITTENT SUCTION NGT. WILL CONTINUE WITH ORDERS.
--- NOTE | 2020-09-27 11:35 | NUR ---
REPORT GIVEN TO SONIA MOCTEZUMA FOR CONTINUOUS OF CARE.
--- NOTE | 2020-09-27 11:35 | NUR ---
RECEIVEF REPORT FROM JONAS . AWAKE BY NAME CALL. NG TUBE TO INTERMITTEN SUCTION HAS DARGABBIREEN MIRGI CONTENT RETURN.
[2020-09-27] MEDS: NACL 0.9% 1,000 ML IV SCH (12:54)
--- NOTE | 2020-09-27 15:00 | NUR ---
RECEIVED REPORT FROM MORNING RN FOR CONTINUITY OF CARE.
--- NOTE | 2020-09-27 17:15 | NUR ---
PT AWAKE IN BED. NO C/O PAIN, NO SOB, AFEBRILE. AOX2, ABLE TO VERBALIZE NEEDS
--- NOTE | 2020-09-27 17:30 | NUR ---
BLOOD SUGAR 225. COVERAGE GIVEN. DUE MEDS GIVEN VIA NGT
--- NOTE | 2020-09-27 19:00 | NUR ---
PT AWKE IN BED. WATCHING TV. NO SOB, O2SAT 96% ON 4L O2
--- NOTE | 2020-09-27 19:10 | NUR ---
RECEIVED PATIENT ON BED WITH HOB ELEVATED TO 30 DEGREE; AWAKE, ALERT ABLE TO FOLLOW SIMPLE COMMANDS, ON 4 LITERS , SO2 97%. CARDIACSCOPE SHOWS ON ATRIAL FIB. HR 109. IVF IN PROGRESS NORMAL SALINE AT 75 ML/HR VIA G 18 ON HAND; PATENT AND INTACT. ABDOMEN DISTENDED, NGT IN SITU TO INTERMITTENT LOW PRESSURE SUCTION DRAINING TO GREENISH GASTRIC OUTPUT; INTACT. VOIDING FREELY TO URINAL.
[2020-09-27] MEDS: ATORVASTATIN 20 MG TAB PO SCH (21:54)
[2020-09-28] VITALS (12 sets, daily range): BP systolic 91–142; BP diastolic 30–80
[2020-09-28] MEDS: DILTIAZEM 30 MG TAB PO SCH ×4 (00:21→17:05)
--- NOTE | 2020-09-28 02:00 | NUR ---
ICE CHIPS GIVEN PATIENT COMPLAINED OF DRY MOUTH.
--- NOTE | 2020-09-28 04:30 | NUR ---
MORNING BED BATH DONE WITH MODERATE ASSISTANCE.
[2020-09-28 05:28] LABS: BASOPHILS % (AUTO) 0.2 % (0.0-2.0); EOSINOPHILS # (AUTO) 0.2 K/uL (0-0.4); EOSINOPHILS % (AUTO) 1.4 % (0.0-4.0); HEMATOCRIT 31.8 % (36-52); LYMPHOCYTES # (AUTO) 1.1 K/uL (2.0-11.5); LYMPHOCYTES % (AUTO) 6.9 % (20.5-51.1); MEAN CORPUSCULAR HEMOGLOBIN 28 pg (27-31); MEAN CORPUSCULAR HGB CONC 31 g/dL (33-37); MEAN CORPUSCULAR VOLUME 90.3 fL (80-94); MONOCYTES # (AUTO) 0.9 K/uL (0.8-1.0); MONOCYTES % (AUTO) 5.4 % (1.7-9.3); NEUTROPHILS # (AUTO) 14.2 K/uL (1.8-7.7); NEUTROPHILS % (AUTO) 86.1 % (42.2-75.2); PLATELET COUNT (AUTO) 268 K/uL (140-450); RED BLOOD CELL COUNT(AUTO) 3.53 MIL/uL (4.20-6.10); RED CELL DISTRIBUTION WIDTH 14.7 % (11.6-13.7); WHITE BLOOD COUNT (AUTO) 16.5 K/uL (4.8-10.8)
[2020-09-28 06:09] LABS: ANION GAP 11.8 (8-16); CARBON DIOXIDE 25.8 mmol/L (21-32); CHLORIDE 117 mmol/L (98-107); CREATININE 1.6 mg/dL (0.6-1.3); GLUCOSE 208 mg/dL (74-106); POTASSIUM 3.6 mmol/L (3.5-5.1); SODIUM SERUM 151 mmol/L (136-145); UREA NITROGEN, BLOOD 40 mg/dL (7-18)
[2020-09-28 06:14] LABS: MAGNESIUM 2.5 mg/dL (1.8-2.4)
--- NOTE | 2020-09-28 07:15 | NUR ---
ENDORSED TO AM SHIFT RN MARJAN FOR CONTINUITY OF CARE.
--- NOTE | 2020-09-28 07:20 | NUR ---
BEDSIDE REPORT RECEIVED FROM NURSE ADVISOR NURSE, PT OPENS EYES TO VOICE, O X2, SPEAKS WITH MUMBLE, FOLLOWS COMMANDS, APPEARS IN NO ACUTE DISTRESS, SKIN WARM DRY COLOR WNL, PT ON ASSEMBLY ADJUSTER A-FIB AT 98, RESP EVEN UNLABORED, ON 4L NC O2, PT WITH 22G PIV, IVF INFUSING WELL, SITE WNL, DRESSING REINFORCED WITH TAPE, HEALING SURGICAL WOUND ON BACK OF NECK, NO REDNESS OR SWELLING OR DRAINAGE NOTED, PT WITH NGT TO INTERMITTENT SUCTION, DARK GREEN DRAINAGE NOTED IN SUCTION CANNISTER, ABD LARGE DISTENDED, SOFT, BS HYPOACTIVE, POC REVIEWED, PT DENIES PAIN OR DISCOMFORT, NO IMMEDIATE NEEDS AT THIS TIME, WILL CONTINUE TO MONITOR.
[2020-09-28] MEDS: BLOOD GLUCOSE MONITORING 1 DEV DEV FS SCH ×4 (07:25→21:01)
--- NOTE | 2020-09-28 08:41 | NUR ---
DONNA FRANCES MIRROR MAKER DAREN CALLED. PT UPDATE GIVEN.
[2020-09-28] MEDS: PANTOPRAZOLE 40 MG INJ VIAL IVP SCH ×2 (08:51→20:32)
[2020-09-28] MEDS: NACL 0.9% 1,000 ML IV SCH (08:51)
[2020-09-28] MEDS: FUROSEMIDE 40 MG TAB PO SCH (08:52)
[2020-09-28] MEDS: AMIODARONE 200 MG TAB PO SCH ×2 (08:52→20:31)
[2020-09-28] MEDS: GABAPENTIN 300 MG CAP PO SCH ×2 (08:52→20:32)
[2020-09-28] MEDS: methocarbamoL 500 MG TAB PO SCH ×4 (08:52→20:35)
[2020-09-28] MEDS: DIGOXIN 0.125 MG TAB PO SCH (08:52)
[2020-09-28] MEDS: MAGNESIUM HYDROXIDE 2400 MG/30 ML UDC PO SCH (08:53)
--- NOTE | 2020-09-28 08:55 | NUR ---
AM MEDS GIVEN, PT RAVI PILLS WELL ONE BY ONE, NGT CLAMPED FOR NOW.
--- NOTE | 2020-09-28 10:30 | NUR ---
PT UNABLE TO HOLD URINE FOR URINAL, PERICARE DONE, BED BATH GIVEN, LINEN AND GOWN CHANGED, PT KAROL TO HELP TURN SIDE TO SIDE.
--- NOTE | 2020-09-28 11:00 | NUR ---
NGT CONNECTED BACK TO SUCTION.
--- NOTE | 2020-09-28 11:32 | NUR ---
SOCIAL WORK NOTE: Patient's Orientation Unable To Assess Information Provided By MAURICIO SHARMA - Comments SW WAS UNABLE TO MEET PATIENT AT BEDSIDE DUE TO MEDICAL CONDITION. Home Economist, Realtionship and Phone Number MAURICIO SHARMA /HEALTHCARE DECISION MAKER [phone] Healthcare Power of Shirt Turner No Does Patient Have a POLST No Identifying Problems No Social Work Triggers Is A Social Work Consult Needed No Mandate Report Filed No Explanation Of Identifying Problems PATIENT IS A 75-YEAR-OLD MALE ADMITTED FOR RAPID A-FIB. PATIENT HAS PMHX OF HYPERTENSION, DIABETES, AND GERD. REPORTED NO HISTORY OF SUBSTANCE ABUSE OR MENTAL HEALTH OR SUBSTANCE ABUSE. Admitted From Home Intermediate Facility [facility] Pre-Admission Level Of Functioning Status Independent With DME Prior Resources/Services Used In Last 12 Months Home Health Care Prior DME Home Oxygen Dialysis Comments N/A Living Situation Lives With Family House Patient Had Caregiver No Home Support No Caregiver Issues Financial Issues No Known Financial Issue Referral To The Financial Counselor Needed No Factors/Needs No D/C Needs Identified Explanation And Or Other Factors Affecting/Possible DC Needs PATIENT'S REQUESTED THAT PATIENT BE DISCHARGED HOME. Pt/Rep Participated In Discharge Plan Yes Patient/Family Agress With Discharge Plan Yes Discharge Plan Comments TENTATIVE DISCHARGE PLAN IS FOR PATIENT TO RETURN HOME. DC Plan Status Initiated
--- NOTE | 2020-09-28 11:50 | NUR ---
PT VOIDED IN URINAL 350ML URINE
[2020-09-28] MEDS: DEXT 5% / NACL 0.45% 1,000 ML IV SCH (11:55)
[2020-09-28] MEDS: INSULIN LISPRO SLIDING SCALE 100 UNITS/ML VIAL SUBQ PRN ×2 (11:56→20:53)
[2020-09-28] MEDS: LEVOFLOXACIN 500 MG/D5W PREMIX 100 ML IV SCH (12:08)
[2020-09-28] MEDS: metroNIDAZOLE 500 MG/NS PREMIX 100 ML IV SCH ×2 (13:46→20:33)
--- NOTE | 2020-09-28 14:35 | NUR ---
[facility], UNABLE TO DO UPPER GI SERIES, ONLY SMALL BOWEL FOLLOW THROUGH CAN BE DONE AT THIS TIME, DR MARSHALL CALLED TO NOTIFY THE SITUATION, DR MARSHALL WANTS TO SEE THE DUODENAL LOOP, DOES NOT NEED SMALL BOWL FOLLOW THROUGH, PT NEEDS SURGICAL CONSULT PER DR MARSHALL. WILL NOTIFY
--- NOTE | 2020-09-28 15:00 | NUR ---
PT RESTING WITH EYES CLOSED IN NO ACUTE DISTRESS.
--- NOTE | 2020-09-28 16:00 | NUR ---
PT C/O DRY MOUTH, MOUTH MOISTURIZER AND SWAB GIVEN. PT C/O NOT BEING ABLE TO DRINK ANYTHING, NGT AND NPO DISCUSSED.
--- NOTE | 2020-09-28 17:06 | NUR ---
CALLED FOR INFORMATION WANTS TO KNOW WHAT IS KEEPING HIM IN HOSPITAL, DISCUSSED PENDING STUDIES AND NGT FOR ABD DISTENTION AND EGD YESTERDAY, WANTS TO SPEAK WITH GI DOCTOR WILL NOTIFY DR MARSHALL. Addendum: 09/28/20 at 1715 by Akilah Khan RN IS CONCERNED THAT PT HAS NOT BEEN EATING FOR DAYS, IS CRYING WANTS TO HAVE BACK HOME.
--- NOTE | 2020-09-28 17:10 | NUR ---
DR MARSHALL PAGED AT THIS TIME
--- NOTE | 2020-09-28 18:01 | NUR ---
PT ON THE PHONE WITH UPSET SCREAMING ON THE PHONE, PT STATES HE WANTS TO GO HOME NOW, ASKING FOR TO TAKE HIM HOME, PT STATES "THERE'S NOTHING WRONG WITH MY BODY, I NEED TO EAT AND GO HOME". EGD RESULT EXPLAINED, NGT AND NPO EXPLAINED, PT REFUSES THE EXPLANATION, SCREAMING "DOCTOR DOESN'T KNOW ANYTHING, i KNOW MY BODY!" OFFFERED ICE CHIPS AND MOUTH SWAB FOR NOW.
--- NOTE | 2020-09-28 18:01 | NUR ---
PER SOCIAL MEDIA MARKETING ANALYST, ACCORDING TO RADIOLOGIST, DUODENAL LOOP OBSTRUCTION CAN BE RULED OUT WITH SMALL BOWEL FOLLOW THROUGH, DR MUÑOZ PAGED TO CONFIRM IT'S OK
--- NOTE | 2020-09-28 18:30 | NUR ---
RADIOLOGY AT BEDSIDE FOR SBFT WITH ORAL CONTRAST, PT RAVI WELL, NO PROBLEM DRINKING. SERIAL X RAYS TO FOLLOW.
--- NOTE | 2020-09-28 19:17 | NUR ---
DR MARSHALL CALLED BACK, REPORTED OF PT'S AND 'S CONCERNS OF NOT KNOWING THE PLAN OF CARE, REPORTED TO DR MARSHALL THAT SBFT HAS BEEN DONE, WILL CALL DR MARSHALL WITH RESULTS.
--- NOTE | 2020-09-28 20:00 | NUR ---
RECEIVED REPORT FROM DAY SHIFT RN. PATIENT IS A&O X2 TO PERSON AND PLACE. HEART SOUNDS NOTED. PERIPHERAL IV ACCESS ON LEFT HAND: 22g RUNNING D5 1/2 NS @75ML/HR, IV ACCESS IS INTACT AND PATENT, NO S/S OF INFILTRATION OR REDNESS NOTED. LUNG SOUNDS RONCHI UPON AUSCULTATION, NC @ 3 LPM. BOWEL SOUNDS HYPOACTIVE. NG-TUBE IN RIGHT NARE, TO INTERMITTENT SUCTION BUT HELD AT THIS TIME. NPO EXCEPT MEDS. SKIN: POST STATUS SX SCAR TO POSTERIOR NECK. OTHERWISE SKIN CLEAN, WARM, DRY AND INTACT. SAFETY PRECAUTIONS IN PLACE, BED IN LOW AND LOCKED POSITION, SIDE RAILS UP, CALL LIGHT WITHIN REACH. STANDARD [id number] MAINTAINED.
[2020-09-28] MEDS: ATORVASTATIN 20 MG TAB PO SCH (20:30)
--- NOTE | 2020-09-28 21:15 | NUR ---
PHONE CALL TO PTS MAURICIO, MADE AWARE THAT THE SMALL BOWEL X RAY FOLLOW THROUGH IS NOT COMPLETE YET; PER RADIOLOGY DEPT,CHELA,RADIOLOGIST WANTS TO DO THE 6 HOUR TEST.QUESTIONS ANSWERED
--- NOTE | 2020-09-28 21:45 | NUR ---
PT PULLED HIS NGT AND BEING AGITATED. EXPLAINED TO THE PT THE SIGNIFICANCE OF NGT AT THIS TIME. PT UNDERSTANDS. CALLED MAURICIO AND SPOKE TO THE PT. PT CALMS DOWN AFTER TALKING TO THE . WILL CONTINUE TO MONITOR PT.
--- NOTE | 2020-09-28 22:00 | NUR ---
SPOKE TO DR. TRINH. ORDERED A TRANSFER TO TELEMETRY. UPDATED PT ABOUT LATEST CONDITION, PT NOT ON ANY DRIPS AT THIS TIME. WILL CONTINUE TO MONITOR.
--- NOTE | 2020-09-28 22:36 | NUR ---
NGT REINSERTION PERFORMED. AUSCULTATED WITH GURGLING SOUND HEARD. ORDERED XRAY FOR PLACEMENT CONFIRMATION.
--- NOTE | 2020-09-28 22:39 | NUR ---
X-RAY TECH AT BEDSIDE.
--- NOTE | 2020-09-28 23:10 | NUR ---
RECEIVED PT FROM [facility] / OSIEL W/ O2 AT 2LPM/NC - O2 SAT WNL . IV SITE INTACT AND PATENT . ON DIAPER - DRY . W/ NGT - PER ICU NURSE PT PULLED OUT THE NGT TUBE WHILE AGO - THE PRESENT NGT IS NEWLY RE INSERTED - ICU NURSE HANDLING THE RESULT OF RPT CXR AND XR OF SMALL BOWEL FOLLOW THROUGH - THE ICU NURSE LUCA SAID TO ME HE WILL RELAY THE RESULT TO DR. MUÑOZ AND HE WILL GIVE ME AN UPDATE OF WHAT DR. MUÑOZ PLAN OF CARE . PT. HAD HX OF MECH . FALL FROM [facility] TO ADM - BED ALARM ON . NPO EXCEPTS MEDS . ON TELE MONITOR - UN CONT. A FIB AT THIS TIME BUT PT. APPEARS RESTING ON BED EXCEPT HE KEEP TRYING TO TOUCHING THE NGT TUBE AND TELE BOX AND KEEP ASKING WHERE HIS . RE ORIENT PT IN THE ROOM . WILL CONT. TO MONITOR . Addendum: 09/29/20 at 0131 by Claudine Painter RN BLOOD SUGAR CHECK 137 - VANCE
--- NOTE | 2020-09-28 23:10 | NUR ---
UPDATED PT'S MAURICIO ABOUT PT CONDITION AND TRANSFER TO TELEMETRY FLOOR. ALL QUESTIONS ANSWERED.
--- NOTE | 2020-09-28 23:12 | NUR ---
PAGED DR. OVIEDO. AWAITING FOR RETURN CALL.
--- NOTE | 2020-09-28 23:15 | NUR ---
GAVE PT REPORT TO BETI.
--- NOTE | 2020-09-28 23:27 | NUR ---
SPOKE TO ANSWERING SERVICE. PAGED DR. MUÑOZ AGAIN. AWAITING FOR RETURN CALL.
--- NOTE | 2020-09-28 23:53 | NUR ---
SPOKE WITH DR MUÑOZ; READ BACK XR SMALL BOWEL FOLLOW THROUGH AND CXR; TO CONTINUE NPO
--- NOTE | 2020-09-28 23:56 | NUR ---
RECEIVED PT FROM ICU . AAOX2 , IV SITE INTACT AND PATENT . NPO EXCEPT MEDS . W/ O2 AT 3LPM/NC . W/ OLD BRUISES ON BUE . PER ICU NURSE HE JUST RE INSERTED THE NGT PRIOR TO ROOM BEC . PT PULLED OUT IT . MONITOR THE PT FOR POSSIBLE RESTRAINT . ON TELE MONITOR - UNCONTROLLED A FIB - DENIES ANY PAIN . PLAN OF CARE DISCUSSED BUT NEEDS RE INFORCEMENT DUE TO MENTAL STATUS . W/ OLD SURGICAL KODAK ON POSTERIOR. OF THE NECK . WILL CONT. TO MONITOR .
[2020-09-29] VITALS (10 sets, daily range): BP systolic 100–131; BP diastolic 50–83
--- NOTE | 2020-09-29 00:20 | NUR ---
CLARIFYING TO ICU NURSE LUCA - HE SPOKE TO HERMANN BALTAZAR - HE RELAYED THE RESULT OF OF RPT CXR AND XR SMALL BOWEL FOLLOW THROUGH - PER LUCA MUÑOZ ORDERED CONT. NPO EXCEPT MEDS . PER LUCA MUÑOZ TOLD TO THE PT. ABOUT SURGERY CONSULT BUT DR. MUÑOZ DID NOT PUT AN ORDER FOR SURGERY CONSULT - WILL ENDORSE . LUCA RELAYED THE RESULT OF RPT CXR AND XR SMALL BOWEL FOLLOW THROUGH TO THE PT'S . Addendum: 09/29/20 at 0048 by Claudine Painter RN HERSON MUÑOZ EXPRESSED PT FOR SURGICAL CONSULT TO AM SHIFT - BUT DR. MUÑOZ DID NOT PUT THE ORDER - WILL FOLLOW UP . TO DR. MUÑOZ
[2020-09-29] MEDS: DEXT 5% / NACL 0.45% 1,000 ML IV SCH ×2 (00:25→05:36)
--- NOTE | 2020-09-29 00:44 | NUR ---
A LITTLE BIT CONFUSED - ALTHOUGH STILL CAN FOLLOW SIMPLE COMMAND -
--- NOTE | 2020-09-29 02:10 | NUR ---
PULLED OUT THE NGT - NGT COMPLETE - WILL RE INSERT - WILL REFER TO FOR RESTRAINST ORDER . WILL CONT. TO MONITOR .
--- NOTE | 2020-09-29 02:40 | NUR ---
PT RE PULLED OUT THE NGT AGAIN - NGT COMPLETE . FOR REINSERTION OF NGT . WILL CONT. TO MONITOR . WILL REFER TO MD FOR SOFT WRIST NON. DEVANTE. RESTRAINT ORDER
--- NOTE | 2020-09-29 02:57 | NUR ---
PUT ON NON BEH. SOFT WRIST RESTRAINT ORDERED BY DR. RILEY - WILL CONT. TO MONITOR .
--- NOTE | 2020-09-29 03:20 | NUR ---
NGT RE INSERTED - PROCEDURE TOLERATED WELL . FOR RPT . CXR FOR NGT PLACEMENT . Addendum: 09/29/20 at 0838 by Claudine Painter RN RPT CXR - DONE - NGT - IN GOOD PLACE
--- NOTE | 2020-09-29 04:19 | NUR ---
PER ICU NURSE EGD DONE ALREADY
[2020-09-29] MEDS: metroNIDAZOLE 500 MG/NS PREMIX 100 ML IV SCH ×3 (05:25→20:33)
[2020-09-29] MEDS: DILTIAZEM 30 MG TAB PO SCH ×4 (05:46→17:08)
--- NOTE | 2020-09-29 05:46 | NUR ---
BP 124 / 70 MD 113 - 6AM DUE CARDIZEM GIVEN P.O - TOLERATED WITH SIGNS OF ASPIRATION . WILL CONT. TO MONITOR. Addendum: 10/01/20 at 0252 by Claudine Painter RN THE WORD WITH SIGNS OF ASPIRATION IN ABOVE NURSE'S NOTE IS AND ERROR ENTRY , INSTEAD OF NO SIGNS OF ASPIRATION - SLAVA
--- NOTE | 2020-09-29 06:00 | NUR ---
PERSISTENT UNCONTROLLED A FIB - INFORM DR. Betty BATISTA .
[2020-09-29] MEDS: BLOOD GLUCOSE MONITORING 1 DEV DEV FS SCH ×4 (06:30→20:55)
[2020-09-29 07:13] LABS: BASOPHILS % (AUTO) 0.2 % (0.0-2.0); EOSINOPHILS # (AUTO) 0.1 K/uL (0-0.4); HEMATOCRIT 30.7 % (36-52); HEMOGLOBIN 9.6 g/dL (12.0-18.0); LYMPHOCYTES # (AUTO) 1.3 K/uL (2.0-11.5); LYMPHOCYTES % (AUTO) 9.6 % (20.5-51.1); MEAN CORPUSCULAR HEMOGLOBIN 28 pg (27-31); MEAN CORPUSCULAR HGB CONC 31 g/dL (33-37); MEAN CORPUSCULAR VOLUME 90.3 fL (80-94); MONOCYTES # (AUTO) 0.7 K/uL (0.8-1.0); MONOCYTES % (AUTO) 5.2 % (1.7-9.3); NEUTROPHILS # (AUTO) 11.7 K/uL (1.8-7.7); PLATELET COUNT (AUTO) 296 K/uL (140-450); RED CELL DISTRIBUTION WIDTH 15.1 % (11.6-13.7); WHITE BLOOD COUNT (AUTO) 13.9 K/uL (4.8-10.8)
--- NOTE | 2020-09-29 07:15 | NUR ---
RECEIVED PT FROM CHEMICAL PROCESS EQUIPMENT OPERATOR NURSE, 18 G IV NOTED TO L. HAND @ 75 ML/H RD5 1/2NS, O2 NC2 LPM, G TUBE PRESENT, PT IS AWAKE AND IN BED, SAFETY AND FALL PRECAUTIONS IN PLACE, WILL CONTINUE TO MONITOR.
--- NOTE | 2020-09-29 07:15 | NUR ---
ENDORSED TO AM SHIFT - PT - STABLE - NO ACTIVE BLEEDING NOTED . ON INTERMITTENT SUCTION . Betty BATISTA AWARED PT HAS PERSISTENT UNCONTROLLED A FIB . ENDORSED .
[2020-09-29 07:17] LABS: ANION GAP 16.3 (8-16); CARBON DIOXIDE 26.2 mmol/L (21-32); CHLORIDE 115 mmol/L (98-107); CREATININE 1.8 mg/dL (0.6-1.3); GLUCOSE 256 mg/dL (74-106); POTASSIUM 3.5 mmol/L (3.5-5.1); SODIUM SERUM 154 mmol/L (136-145); UREA NITROGEN, BLOOD 31 mg/dL (7-18)
[2020-09-29 07:23] LABS: MAGNESIUM 2.3 mg/dL (1.8-2.4); PHOSPHORUS 3.3 mg/dL (2.5-4.9)
[2020-09-29] MEDS: MAGNESIUM HYDROXIDE 2400 MG/30 ML UDC PO SCH (09:16)
[2020-09-29] MEDS: methocarbamoL 500 MG TAB PO SCH ×4 (09:17→20:49)
[2020-09-29] MEDS: GABAPENTIN 300 MG CAP PO SCH ×2 (09:18→20:48)
[2020-09-29] MEDS: PANTOPRAZOLE 40 MG INJ VIAL IVP SCH ×2 (09:19→20:36)
[2020-09-29] MEDS: AMIODARONE 200 MG TAB PO SCH ×2 (09:19→20:49)
[2020-09-29] MEDS: DIGOXIN 0.125 MG TAB PO SCH (09:20)
[2020-09-29] MEDS: INSULIN LISPRO SLIDING SCALE 100 UNITS/ML VIAL SUBQ PRN ×3 (12:04→20:58)
--- NOTE | 2020-09-29 12:10 | NUR ---
PT WAS GIVEN THE SCHEDULED MEDICATIONS, PARAMETERS CHECKED, HR IS 140, BP IS 110/68, O2 SATURATION IS AT 97%, RESPIRATION IS AT 20/MIN, WILL MONITOR PT.
[2020-09-29] MEDS: LEVOFLOXACIN 500 MG/D5W PREMIX 100 ML IV SCH (12:11)
--- NOTE | 2020-09-29 12:40 | NUR ---
DC'D NG TUBE, 100ML OF DARK GREEN DRAINAGE NOTED, PT TOLERATED REMOVAL WELL, WILL CONTINUE TO MONITOR
--- NOTE | 2020-09-29 14:05 | NUR ---
09/29/20 RD FOLLOW UP COMPLETED PLEASE REFER TO NUTRITION ASSESSMENT UNDER CARE ACTIVITY FOR ESTIMATED NUTRITIONAL NEEDS. 1. PENDING SWALLOWING EVALUATION 2. IF PATIENT PASSES SWALLOW EVALUATION CONTINUE CLEAR LIQUID DIET TOLERATED 3. RECOMMEND ENSURE CLEAR TID 4. CONSIDER GRADUALLY ADVANCING DIET TO CCHO 60GM MECHANICAL SOFT WHEN MEDICALLY STABLE. 5. RD TO FOLLOW-UP 2-3 DAYS, HIGH RISK ROBBIE BARNARD RD
--- NOTE | 2020-09-29 14:50 | NUR ---
DR. MORIN CALLED AND INFORMED MD OF THE PT'S CONSULT AND DR. MORIN VERBALIZED THAT DR. NATASHA BROWN WILL EVALUATE AND SEE THE PT, CHIQUITA FUNES WAS INFORMED.
--- NOTE | 2020-09-29 17:17 | NUR ---
PT WAS GIVEN THE SCHEDULED MEDICATIONS VIA ORAL AND IVPB, TOLERATED, 4 UNITS INSULIN GIVEN ON THE RT UA FOR THE BLOOD GLUCOSE OF 208, NO DIFFICULTY SWALLOWING NOTED, WILL MONITOR PT.
--- NOTE | 2020-09-29 19:30 | NUR ---
ENDORSED PT TO EXTERMINATOR HELPER TERMITE NURSE FOR CONTINUITY OF CARE
--- NOTE | 2020-09-29 19:35 | NUR ---
RECEIVED REPORT FROM LEANDRO RNCARLOTTA. PT AOX1 ON 2L NC. NO S/S RESPIRATORY DISTRESS. IV SITE XAVIER 22G, PATENT AND INTAC, INFUSING D5 1/2 NS AT 75 ML/HR. HAS ALYSSA OLD BRUISES ON ARMS, OLD SURGICAL KODAK ON BACK OF THE NECK . HAS AYLSSA SOFT WRIST RESTRAINTS, GOOD CIRCULATION, NO INJURIES. SAFETY MEASURES IN PLACE. CALL LIGHT WITHIN REACH. WILL CONTINUE TO MONITOR .
[2020-09-29] MEDS: ATORVASTATIN 20 MG TAB PO SCH (20:47)
--- NOTE | 2020-09-29 21:00 | NUR ---
ADMINISTERED SCHEDULED MEDS. 4 UNITS INSULIN GIVEN FOR PT BLOOD SUGAR 202 PER SLIDING SCALE. MEDICATION EDUCATION PROVIDED. PT VERBALIZED UNDERSTANDING. PT TOLERATED WELL. NO DISTRESS NOTED. WILL CONTINUE TO MONITOR
--- NOTE | 2020-09-29 22:50 | NUR ---
PT AWAKE IN BED WATCHING TELEVISION. RESPIRATIONS EVEN AND UNLABORED. DENIES PAIN, DENIES SOB. NO DISTRESS NOTED. WILL CONTINUE TO MONITOR
[2020-09-30] VITALS: BP 106/60
--- NOTE | 2020-09-30 01:15 | NUR ---
PT ASLEEP IN BED. RESPIRATIONS EVEN AND UNLABORED. NO DISTRESS NOTED. WILL CONTINUE TO MONITOR
[2020-09-30] MEDS: DEXT 5% / NACL 0.45% 1,000 ML IV SCH (01:53)
[2020-09-30] MEDS ORDERED: HYDROcodone/APAP 5/325 MG 1 TAB TAB PO PRN (01:55)
[2020-09-30] MEDS: HYDROcodone/APAP 10/325 MG 1 TAB TAB PO PRN ×2 (02:15→18:09)
--- NOTE | 2020-09-30 02:24 | NUR ---
PT C/O SEVERE LOWER BACK PAIN. MADE AWARE. ORDERS RECEIVED. WILL CONTINUE TO MONITOR PT
[2020-09-30 04:00] VITALS: BP 108/59
--- NOTE | 2020-09-30 04:45 | NUR ---
PT ASLEEP IN BED. RESPIRATIONS EVEN AND UNLABORED. NO DISTRESS NOTED. WILL CONTINUE TO MONITOR
[2020-09-30] MEDS: metroNIDAZOLE 500 MG/NS PREMIX 100 ML IV SCH ×3 (05:07→21:07)
[2020-09-30] MEDS: DILTIAZEM 30 MG TAB PO SCH ×4 (05:24→17:44)
[2020-09-30] MEDS: bisacodyL 5 MG TABEC PO SCH (05:24)
[2020-09-30] MEDS: BLOOD GLUCOSE MONITORING 1 DEV DEV FS SCH ×4 (06:12→21:42)
[2020-09-30] MEDS: INSULIN LISPRO SLIDING SCALE 100 UNITS/ML VIAL SUBQ PRN ×4 (06:28→21:45)
--- NOTE | 2020-09-30 06:39 | NUR ---
PT BLOOD SUGAR 245, GAVE 4 UNITS INSULIN PER SLIDING SCALE. TOLERATED WELL. WILL CONTINUE TO MONITOR
[2020-09-30 07:27] LABS: BASOPHILS % (AUTO) 0.3 % (0.0-2.0); EOSINOPHILS # (AUTO) 0.3 K/uL (0-0.4); EOSINOPHILS % (AUTO) 2.2 % (0.0-4.0); HEMATOCRIT 29.4 % (36-52); HEMOGLOBIN 9.4 g/dL (12.0-18.0); LYMPHOCYTES # (AUTO) 1.5 K/uL (2.0-11.5); LYMPHOCYTES % (AUTO) 13.5 % (20.5-51.1); MEAN CORPUSCULAR HEMOGLOBIN 29 pg (27-31); MEAN CORPUSCULAR HGB CONC 32 g/dL (33-37); MONOCYTES # (AUTO) 0.5 K/uL (0.8-1.0); MONOCYTES % (AUTO) 4.6 % (1.7-9.3); NEUTROPHILS % (AUTO) 79.4 % (42.2-75.2); PLATELET COUNT (AUTO) 276 K/uL (140-450); RED BLOOD CELL COUNT(AUTO) 3.27 MIL/uL (4.20-6.10); RED CELL DISTRIBUTION WIDTH 15.1 % (11.6-13.7); WHITE BLOOD COUNT (AUTO) 11.4 K/uL (4.8-10.8)
[2020-09-30 07:36] LABS: ANION GAP 16.3 (8-16); CARBON DIOXIDE 24.3 mmol/L (21-32); CHLORIDE 116 mmol/L (98-107); CREATININE 1.7 mg/dL (0.6-1.3); GLUCOSE 233 mg/dL (74-106); POTASSIUM 3.6 mmol/L (3.5-5.1); SODIUM SERUM 153 mmol/L (136-145); UREA NITROGEN, BLOOD 23 mg/dL (7-18)
--- NOTE | 2020-09-30 07:40 | NUR ---
REPORT RECEIVED FROM PM MIDDLE SCHOOL HISTORY TEACHER. PT IS STABLE LAYING IN BED AWAKE, IN NO DISTRESS. WILL CONTINUE WITH POC.
[2020-09-30 07:45] LABS: MAGNESIUM 2.2 mg/dL (1.8-2.4); PHOSPHORUS 4.2 mg/dL (2.5-4.9)
--- NOTE | 2020-09-30 07:55 | NUR ---
ENDORSED TO DAY RN FOR CONTINUITY OF CARE. PT IS IN STABLE CONDITION
[2020-09-30 08:00] VITALS: BP 102/64
--- NOTE | 2020-09-30 08:50 | NUR ---
PT IS EASY TO AROUSE ORIENTED X 1/2 PT REQUIRING ASSISTANCE FOR ADL'S ABLE TO COMMUNICATE BASIC NEED. TOLERATED PO MEDICATION WITH NO PROBLEM. HAS PRODUCTIVE COUGH WITH CHEST CONGESTION. LUNG SOUNDS CRACKLES ABD IS ROUND, SOFT AND NONTENDER. LBM 11/10. PT RECEIVING IVF D51/2NS AT 75ML/HR. TO L UPPER ARM THAT IS INTACT AND PATENT. V/S: 97.6, 107, 18, 102/64, 94% ON 2 L NC. SAFETY MEASURES IN PLACE. WILL CONTINUE WITH POC.
[2020-09-30] MEDS: AMIODARONE 200 MG TAB PO SCH ×2 (08:58→21:16)
[2020-09-30] MEDS: PANTOPRAZOLE 40 MG INJ VIAL IVP SCH ×2 (08:58→21:07)
[2020-09-30] MEDS: DIGOXIN 0.125 MG TAB PO SCH (09:00)
[2020-09-30] MEDS: GABAPENTIN 300 MG CAP PO SCH ×2 (09:01→21:15)
[2020-09-30] MEDS: methocarbamoL 500 MG TAB PO SCH ×4 (09:01→21:15)
[2020-09-30] MEDS: MAGNESIUM HYDROXIDE 2400 MG/30 ML UDC PO SCH (09:19)
--- NOTE | 2020-09-30 10:25 | NUR ---
PROVISION OF CARE PROVIDED. PT REQUIRED SOME REDIRECTION PT STATED HE WANTED TO GO HOME. REDIRECTION SUCCESSFUL
[2020-09-30 12:00] VITALS: BP 90/55
[2020-09-30] MEDS: METOCLOPRAMIDE 10 MG TAB PO SCH ×2 (12:11→16:55)
[2020-09-30] MEDS: LEVOFLOXACIN 500 MG/D5W PREMIX 100 ML IV SCH (12:12)
--- NOTE | 2020-09-30 12:40 | NUR ---
V/S: 97.8, 114, 20, 90/55, 93% 2L NC. BS 214 RECEIVED 4 UNITS OF HUMALOG. REQUIRES ASSISTANCE WITH EATING. SPOKE WITH WHO IS CONCERNED AND DOESNT WANT HER GOING BACK TO SNF. REFERRED TO [facility],
[2020-09-30] MEDS: DEXTROSE 5% 1,000 ML IV SCH (13:42)
--- NOTE | 2020-09-30 14:27 | NUR ---
PT SPOKE WITH , APPEARS MORE ORIENTED THAN EARLIER TODAY ORIENTED X 2/3 NOW. ALL NEEDS MET . WATCHING TV.
[2020-09-30 16:00] VITALS: BP 116/60
--- NOTE | 2020-09-30 16:25 | NUR ---
V/S: 97.5, 116, 19, 116/60, 98% ON 2 L NC. BS WAS 172 AND RECEIVED 2 UNITS OF HUMALOG. CONTINUES TO RECEIVE IVF.
--- NOTE | 2020-09-30 18:48 | NUR ---
PT IS STABLE AT THIS TIME. PT REQUESTED PAIN MEDICATION FOR GENERALIZED PAIN 06/29 PT WAS GIVEN [place]CO. PROVISION OF CARE PROVIDED. ALL NEEDS MET.
--- NOTE | 2020-09-30 19:20 | NUR ---
ENDORSED PT TO RM RN FOR CONTINUITY OF CARE. PT IS STABLE IN NO DISTRESS, CALL LIGHT WITHIN REACH.
--- NOTE | 2020-09-30 19:25 | NUR ---
RECEIVED ENDORSEMENT REPORT FROM AM NURSE. PT IS SLEEPING COMFORTABLY IN BED WITHOUT APPARENT DISTRESS, NO SOB,ON O2 2LPM VIA NASAL CANNULA, SATTING 94%. RESPIRATIONS EVEN AND UNLABORED. CHEST RISE AND FALL SYMMETRICAL. NO S/S OF PAIN OR DISCOMFORT AT THIS TIME. HAS IV ACCESS ON XAVIER 22G, PATENT AND FLUSHED. RUNNING IVF D5@75CC/HR. SAFETY MEASURES IN PLACED. BED IN LOWEST POSITION. SIDE RAILS UP X2. CALL LIGHT WITHIN REACH. WILL CONTINUE TO MONITOR.
[2020-09-30 20:00] VITALS: BP 103/53
--- NOTE | 2020-09-30 20:30 | NUR ---
RECEIVED A CALL FROM PT'S GENE, GAVE AN UPDATE ON PT STATUS, APPRECIATED CALL.
--- NOTE | 2020-09-30 21:15 | NUR ---
DUE MEDS GIVEN, PT ABLE TO TOLERATE WELL. NO ADVERSE REACTIONS NOTED. WILL CONTINUE TO MONITOR.
[2020-09-30] MEDS: ATORVASTATIN 20 MG TAB PO SCH (21:16)
--- NOTE | 2020-09-30 21:45 | NUR ---
BLOOD GLUCOSE CHECKED-167 MG/DL. INSULIN 2 UNITS GIVEN PER PROTOCOL. WILL CONTINUE TO MONITOR.
--- NOTE | 2020-09-30 23:45 | NUR ---
CHECKED ON PT, COMFORTABLY SLEEPING IN BED, NO SOB, NO ACUTE DISTRESS NOTED. SAFETY MEASURES IN PLACED. CALL LIGHT WITHIN REACH. WILL CONTINUE TO MONITOR.
[2020-10-01] VITALS: BP 108/50
[2020-10-01] MEDS: DILTIAZEM 30 MG TAB PO SCH ×4 (00:40→17:24)
--- NOTE | 2020-10-01 01:45 | NUR ---
ROUND CHECK DONE, PT COMFORTABLY SLEEPING IN BED, NO SOB, NO ACUTE DISTRESS NOTED. RESPIRATIONS EQUAL. SATTING 97% ON 2L NC. SAFETY MEASURES IN PLACED. CALL LIGHT WITHIN REACH. WILL CONTINUE TO MONITOR.
[2020-10-01] MEDS: DEXTROSE 5% 1,000 ML IV SCH ×2 (02:48→15:55)
--- NOTE | 2020-10-01 03:45 | NUR ---
PT HAD EPISODE OF CONFUSION ASKED WHERE IS HE AT. RE-ORIENTED PT OF PLACE, DATE AND TIME. PT KEPT IN COMFORTABLE POSITION. NO SOB, NO DISTRESS, DENIES PAIN. SAFETY MEASURES IN PLACED. WILL CONTINUE TO MONITOR.
[2020-10-01 04:00] VITALS: BP 111/63
[2020-10-01] MEDS: metroNIDAZOLE 500 MG/NS PREMIX 100 ML IV SCH ×3 (05:14→20:21)
--- NOTE | 2020-10-01 05:45 | NUR ---
PT REQUESTED TO HAVE SOME WATER AND PUDDING. ABLE TO TOLERATE WELL. CALL LIGHT IN REACH. WILL CONTINUE TO MONITOR.
[2020-10-01] MEDS: METOCLOPRAMIDE 10 MG TAB PO SCH ×3 (06:19→16:57)
[2020-10-01] MEDS: bisacodyL 5 MG TABEC PO SCH (06:19)
[2020-10-01] MEDS: BLOOD GLUCOSE MONITORING 1 DEV DEV FS SCH ×4 (06:41→20:20)
[2020-10-01] MEDS: INSULIN LISPRO SLIDING SCALE 100 UNITS/ML VIAL SUBQ PRN ×4 (06:43→20:30)
--- NOTE | 2020-10-01 07:10 | NUR ---
RECEIVED REPORT FROM NIGHT NURSE FOR CONTINUITY OF CARE, PT IS AAOX1-2, PT CONFUSED, PT ON 2L NC, PT HAS LEFT UA 22G INFUSING D5AT 75ML/H, SKIN INTACT WITH BUE BRUISING. INTRODUCE SELF, PT CONFUSED, RE-ORIENT PT BUT STILL CONFUSING, PT IS STABLE, BED IN LOW POSITION, SAFETY MEASURES IN PLACE, CALL LIGHT WITHIN REACH, WILL CONTINUE TO MONITOR.
--- NOTE | 2020-10-01 07:15 | NUR ---
ENDORSED PT TO AM SHIFT NURSE IN STABLE CONDITION FOR CONTINUITY OF CARE.
[2020-10-01 07:46] LABS: BASOPHILS # (AUTO) 0.1 K/uL (0.00-0.22); BASOPHILS % (AUTO) 0.6 % (0.0-2.0); EOSINOPHILS # (AUTO) 0.2 K/uL (0-0.4); EOSINOPHILS % (AUTO) 1.8 % (0.0-4.0); HEMATOCRIT 29.3 % (36-52); HEMOGLOBIN 9.5 g/dL (12.0-18.0); LYMPHOCYTES # (AUTO) 1.8 K/uL (2.0-11.5); LYMPHOCYTES % (AUTO) 16.7 % (20.5-51.1); MEAN CORPUSCULAR HEMOGLOBIN 29 pg (27-31); MEAN CORPUSCULAR HGB CONC 33 g/dL (33-37); MEAN CORPUSCULAR VOLUME 89.2 fL (80-94); MONOCYTES # (AUTO) 0.6 K/uL (0.8-1.0); MONOCYTES % (AUTO) 5.8 % (1.7-9.3); NEUTROPHILS % (AUTO) 75.1 % (42.2-75.2); PLATELET COUNT (AUTO) 314 K/uL (140-450); RED BLOOD CELL COUNT(AUTO) 3.28 MIL/uL (4.20-6.10); RED CELL DISTRIBUTION WIDTH 14.9 % (11.6-13.7); WHITE BLOOD COUNT (AUTO) 10.6 K/uL (4.8-10.8)
[2020-10-01 08:00] VITALS: BP 97/52
[2020-10-01 08:30] LABS: ANION GAP 18.4 (8-16); CARBON DIOXIDE 21.7 mmol/L (21-32); CHLORIDE 114 mmol/L (98-107); CREATININE 1.9 mg/dL (0.6-1.3); GLUCOSE 182 mg/dL (74-106); POTASSIUM 4.1 mmol/L (3.5-5.1); SODIUM SERUM 150 mmol/L (136-145); UREA NITROGEN, BLOOD 21 mg/dL (7-18)
[2020-10-01] MEDS: DIGOXIN 0.125 MG TAB PO SCH (08:47)
[2020-10-01] MEDS: AMIODARONE 200 MG TAB PO SCH (08:48)
[2020-10-01] MEDS: GABAPENTIN 300 MG CAP PO SCH ×2 (08:48→20:21)
[2020-10-01] MEDS: methocarbamoL 500 MG TAB PO SCH ×4 (08:48→20:22)
[2020-10-01] MEDS: PANTOPRAZOLE 40 MG INJ VIAL IVP SCH ×2 (08:49→20:21)
[2020-10-01] MEDS: MAGNESIUM HYDROXIDE 2400 MG/30 ML UDC PO SCH (08:49)
--- NOTE | 2020-10-01 08:59 | NUR ---
ADMINISTERED SCHEDULED MEDICATION, MEDICATION EDUCATION PROVIDED, PT TOLERATED WELL, PT IS STABLE WORKING WITH PHYSICAL THERAPY, CALL LIGHT WITHIN REACH, WILL CONTINUE TO MONITOR.
[2020-10-01 09:20] LABS: MAGNESIUM 2.1 mg/dL (1.8-2.4)
--- NOTE | 2020-10-01 10:21 | NUR ---
*ST BEDSIDE SWALLOW EVALUATION* Pt is 75 yo M BIBA from [facility]. Work-up noted gastric outlet obstruction c Pt s/p NGT to L[facility] 09/26-09/29. EGD 09/27 - peptic esophagitis; normal stomach except ulcer in antrum, lesser curvature, less than 1cm, non-obstructive; pylorus wide open; obstruction obstruction in the duodenum from adhesions. PMHx COPD c baseline O2 requirement 4L nc, Afib, HTN, DM1, ?Hx colon CA s/p resxn 4 yrs ago. Pt s/p recent spinal surgery 09/14. CT cervical spine 09/25 - posterior decompression of the cervical spine c laminectomies at C3-C6. CTH 09/25 (-) acute. CXR 09/29 - mild bilat airspace opacities, unchanged. Cleared with RN, Jennifer, for BDSE. At present, GI cleared Pt to start on Full Liquids diet. Per chart, pt received Regular/Thin Liquids diet at [facility] prior to admit. Pt seen bedside, alert, on 3L O2 nc, baseline congestion at rest with pt occasionally engaging in non-productive cough. Pt reported using upper dentures with denture adhesive and eating soft foods like fish, vegetables and rice prior to admit without difficulty. Pt essentially edentulous at this time. ~3/4 cup cream of wheat, 1 serving of nutritional shake, 4oz thin juice, ~2.5oz apple sauce, and 7.5ml canned MS pears given. Pt's upper dentures would slip, so Pt and CEMENT KILN OPERATOR agreed to remove dentures at this time. Pt had fair tsp stripping, fair straw sip thin, very slow and poor gumming of canned MS pears with noted slowed response, no residue, slight delay swallow trigger, fair laryngeal excursion, no significant coughing nor throat clearing. POC, diet recommendations, and safe swallow strategies d/w pt and pt's RN. P: Pt's oral-pharyngeal swallow appears WFL with Puree/Thin Liquids 1 sip at a time with feed-assist Pt may benefit from small meals and remaining upright for 30 minutes after meal d/t underlying GI issues RN to clear with GI re: diet upgrades Nsg to monitor and notify CEMENT KILN OPERATOR of changes in status -Kaitlyn Mccormack MA, CCC-CEMENT KILN OPERATOR Addendum: 10/01/20 at [address] Amended: Links added.
--- NOTE | 2020-10-01 11:30 | NUR ---
PT RESTING IN BED, NO SIGNS OF DISTRESS NOTED, RESPIRATIONS ARE EVEN AND UNLABORED ON OXYGEN VIA 3L NC
[2020-10-01 12:00] VITALS: BP 93/50
[2020-10-01] MEDS: LEVOFLOXACIN 500 MG/D5W PREMIX 100 ML IV SCH (13:05)
--- NOTE | 2020-10-01 13:13 | NUR ---
administered scheduled medication, 4 UNITS OF HUMALOG FOR BLOOD GLUCOSE OF 237 medication education provided, pt tolerated well, pt is stable, call light within reach, will continue to monitor.
--- NOTE | 2020-10-01 15:07 | NUR ---
ADMINISTERED SCHEDULED MEDICATION, MEDICATION EDUCATION PROVIDED, PT TOLERATED WELL, PT IS STABLE, CALL LIGHT WITHIN REACH.
--- NOTE | 2020-10-01 15:24 | NUR ---
10/01/20 RD FOLLOW UP COMPLETED PLEASE REFER TO NUTRITION ASSESSMENT UNDER CARE ACTIVITY FOR ESTIMATED NUTRITIONAL NEEDS. 1. CONTINUE NOTHING BY MOUTH 2. IF/WHEN PATIENT IS MEDICALLY CLEARED, ADVANCE DIET TO PUREE WITH THIN LIQUIDS PER SCRAP STRIPPER HAND 3. CONSIDER PARENTERAL NUTRITION IF PATIENT CONTINUES TO HAVE GI ISSUES 4. RD TO FOLLOW-UP 2-3 DAYS, HIGH RISK ROBBIE BARNARD, ANGELIKA
[2020-10-01 16:00] VITALS: BP 137/50
--- NOTE | 2020-10-01 16:30 | NUR ---
NOTIFIED DR BROWN OF PT'S CT RESULTS, RECEIVED TORB FOR ERYTHROMYCIN 50MG PO QAC
[2020-10-01] MEDS ORDERED: ERYTHROMYCIN 250 MG TABEC PO SCH (17:00)
--- NOTE | 2020-10-01 17:03 | NUR ---
ADMINISTERED SCHEDULED MEDICATION, 4 UNITS OF HUMALOG FOR BLOOD GLUCOSE OF 211. MEDICATION EDUCATION PROVIDE, PT TOLERATED MEDICATION OKAY. PT IS STABLE, CALL LIGHT WITHIN REACH, WILL CONTINUE TO MONITOR.
[2020-10-01] MEDS: ERYTHROMYCIN ETHYLSUCCINATE SUSP 200 MG/5 ML UDC PO SCH (17:24)
--- NOTE | 2020-10-01 17:27 | NUR ---
ADMINISTERED SCHEDULED MEDICATION, MEDICATION EDUCATION PROVIDED, PT TOLERATED WELL, PT IS STABLE, CALL LIGHT WITHIN REACH, WILL CONTINUE TO MONITOR.
[2020-10-01] MEDS ORDERED: TPN PER PHARMACY MC PRN (18:20)
--- NOTE | 2020-10-01 19:10 | NUR ---
ENDORSE PT TO NIGHT NURSE, PT STABLE
--- NOTE | 2020-10-01 19:11 | NUR ---
RECEIVED BEDSIDE REPORT FROM DAY RN FOR CONTINUITY OF CARE, PT IS AAOX1, PT CONFUSED, RESPIRATIONS ARE LABORED RR 22-26 SAT LOW 80S ON 3L VIA NC INCREASED TO 4L SAT 90%. PT WITH COARSE BREATH SOUNDS AND DIMINISHED AT BASE, PT HAS LEFT UA 22G INFUSING D5 AT 75ML/H, SKIN INTACT WITH BUE BRUISING. ABD IS DISTENDED BOWEL SOUNDS ARE HYPOACTIVE, INTRODUCE SELF, PT CONFUSED, RE-ORIENT PT BUT STILL CONFUSING, SAFETY MEASURES ARE IN PLACE. BED IN LOW POSITION CALL LIGHT WITHIN REACH, WILL CONTINUE TO MONITOR.
[2020-10-01 20:00] VITALS: BP 92/54
[2020-10-01] MEDS: ATORVASTATIN 20 MG TAB PO SCH (20:21)
--- NOTE | 2020-10-01 20:21 | NUR ---
VITAL SIGNS:92/54 HR 108 REMAINS UNCONT A-FIB. RR 24 93% ON 4L VIA NC 98.8. YESIKA MEDICATIONS GIVEN PER ORDER. BLOOD SUGAR 214 ADMINISTERED INSULIN PER SLIDING SCALE. MED EDUCATION GIVEN PT UNABLE TO COMPREHEND D/T CONFUSION AND LETHARGY. SAFETY MEASURES ARE IN PLACE.
--- NOTE | 2020-10-01 20:30 | NUR ---
SPOKE WITH PT'S MELANI GAVE UPDATE PER DOCTOR TOLD HER SHE MAY BE ABLE TO COME IN TOMORROW TO SEE PT D/T CRITICAL STATUS. WILL F/U IN AM.
--- NOTE | 2020-10-01 22:07 | NUR ---
CONNECTED MELANI Hendrickson'S ON PHONE WITH PT. PT REMAINS VERY LETHARGY BUT ABLE TO HEAR HER VOICE. GAVE UPDATE TO MELANI ALL QUESTIONS AND CONCERNS ADDRESSED. WILL MONITOR CLOSELY.
[2020-10-02] VITALS (8 sets, daily range): BP systolic 81–140; BP diastolic 38–90
--- NOTE | 2020-10-02 | NUR ---
VITAL SIGNS ARE STABLE 92/40 HR 95 SAT 92% ON 4L VIA NC. HELD YESIKA CARDIZEM D/T LOW B/P. PT REMAINS ON TELE MONITOR. PT SLEEPING COMFORTABLY IN BED WITH EYES CLOSED. CHEST RISE AND FALL NOTED. NO S/S OF DISTRESS. PT IS EASILY AROUSABLE TO NAME. SAFETY MEASURES ARE IN PLACE. CALL LIGHT IS WITHIN REACH.
--- NOTE | 2020-10-02 01:57 | NUR ---
PT IS SLEEPING COMFORTABLY IN BED WITH EYES CLOSED. CHEST RISE AND FALL NOTED. PT REMAINS ON NC 4L SAT WELL. SAFETY MEASURES ARE IN PLACE. WILL CONTINUE TO MONITOR.
--- NOTE | 2020-10-02 04:14 | NUR ---
VITAL SIGN STABLE 103BPM 95/50 90% O2 4L NC RR 22 97.8 DENIES PAIN. PT MORE AWAKE SAT UP AND GAVE A FEW ICE CHIPS D/T NPO STATUS PT HAPPY SMILING. REQUEST TO LAY BED DOWN AGAIN AND WILL GO BACK TO SLEEP. ALL SAFETY MEASURES ARE IN PLACE. WILL ROUND FREQUENTLY.
[2020-10-02] MEDS: DEXTROSE 5% 1,000 ML IV SCH ×2 (04:26→17:59)
[2020-10-02] MEDS: metroNIDAZOLE 500 MG/NS PREMIX 100 ML IV SCH ×3 (04:26→20:35)
[2020-10-02] MEDS: DILTIAZEM 30 MG TAB PO SCH ×4 (06:00→18:00)
[2020-10-02 06:30] LABS: BASOPHILS % (AUTO) 0.5 % (0.0-2.0); EOSINOPHILS % (AUTO) 0.5 % (0.0-4.0); HEMATOCRIT 25.6 % (36-52); HEMOGLOBIN 8.4 g/dL (12.0-18.0); LYMPHOCYTES # (AUTO) 1.3 K/uL (2.0-11.5); LYMPHOCYTES % (AUTO) 13.6 % (20.5-51.1); MEAN CORPUSCULAR HEMOGLOBIN 29 pg (27-31); MEAN CORPUSCULAR HGB CONC 33 g/dL (33-37); MEAN CORPUSCULAR VOLUME 89.2 fL (80-94); MONOCYTES # (AUTO) 0.6 K/uL (0.8-1.0); MONOCYTES % (AUTO) 6.4 % (1.7-9.3); NEUTROPHILS # (AUTO) 7.8 K/uL (1.8-7.7); PLATELET COUNT (AUTO) 216 K/uL (140-450); RED BLOOD CELL COUNT(AUTO) 2.87 MIL/uL (4.20-6.10); RED CELL DISTRIBUTION WIDTH 15.1 % (11.6-13.7); WHITE BLOOD COUNT (AUTO) 9.8 K/uL (4.8-10.8)
[2020-10-02] MEDS: bisacodyL 5 MG TABEC PO SCH (06:30)
--- NOTE | 2020-10-02 06:30 | NUR ---
BLOOD SUGAR 210 ADMINISTERED INSULIN PER SLIDING SCALE. YESIKA MEDICATION GIVEN PER ORDERS PT TOLERATED WELL. HELD CARDIZEM D/T LOW B/P 95/50 HR 103. PT REMAINS ON TELE MONITOR. WILL CONTINUE TO MONITOR.
[2020-10-02] MEDS: BLOOD GLUCOSE MONITORING 1 DEV DEV FS SCH ×3 (06:31→18:19)
[2020-10-02] MEDS: ERYTHROMYCIN ETHYLSUCCINATE SUSP 200 MG/5 ML UDC PO SCH ×3 (06:31→16:50)
[2020-10-02] MEDS: METOCLOPRAMIDE 10 MG TAB PO SCH ×3 (06:31→16:47)
[2020-10-02] MEDS: INSULIN LISPRO SLIDING SCALE 100 UNITS/ML VIAL SUBQ PRN ×3 (06:31→18:19)
[2020-10-02 06:53] LABS: MAGNESIUM 1.9 mg/dL (1.8-2.4)
[2020-10-02 06:58] LABS: ANION GAP 16.4 (8-16); CARBON DIOXIDE 20.5 mmol/L (21-32); CHLORIDE 113 mmol/L (98-107); CREATININE 2.5 mg/dL (0.6-1.3); GLUCOSE 226 mg/dL (74-106); POTASSIUM 3.9 mmol/L (3.5-5.1); SODIUM SERUM 146 mmol/L (136-145); UREA NITROGEN, BLOOD 37 mg/dL (7-18)
--- NOTE | 2020-10-02 07:10 | NUR ---
RECEIVED REPORT FROM NIGHT NURSE FOR CONTINUITY OF CARE, PT IS STABLE, PT ON 4L O2 VIA NC, PT NPO, PT ASKING FOR CHOCOLATE ICE CREAM AND NOTIFIED PT HE WAS NPO AND NEED TO BE PATIENT AND WAIT FOR DR TO CHANGE DIET ORDER. PT VERBALIZED UNDERSTANDING, PT HAS LEFT UA 22G INFUSING D5 AT 75 ML/H, SKIN INTACT, BED IN LOW POSITION, SAFETY MEASURES IN PLACE, WILL CONTINUE TO MONITOR.
--- NOTE | 2020-10-02 07:22 | NUR ---
GAVE BEDSIDE REPORT TO DAY RN. PT ENDORSED IN STABLE CONDITION.
--- NOTE | 2020-10-02 08:19 | NUR ---
PAGED DR BATISTA AND DR ARECHIGA FOR ORDERS PT HAS LOW BP 81/47 AND HR 107, WILL CONTINUE TO MONITOR PT.
--- NOTE | 2020-10-02 08:29 | NUR ---
RECEIVED TORB FROM DR HURLEY TO BOLUS 500 ML IV OF NORMAL SALINE AND ORDER PICC LINE FOR PT.
[2020-10-02] MEDS ORDERED: NACL 0.9% 500 ML IV SCH ×2 (08:30→09:10)
--- NOTE | 2020-10-02 08:39 | NUR ---
STARTED PT NS BOLUS, MONITORING PT. CURRENT PT 83/42 AND HR 96, WILL CONTINUE TO MONITOR PT.
--- NOTE | 2020-10-02 09:08 | NUR ---
NOTIFIED DR HURLEY PT HAS LOW BP 87/40, RECEIVED TORB FOR ANOTHER NS BOLUS IV AND HOLD BP MEDS, AND ORDER A LACTIC ACID, WILL INPUT ORDER AND CARRY IT OUT.
--- NOTE | 2020-10-02 09:13 | NUR ---
ADMINISTERED BOLUS OF NORMAL SALINE IV AND WILL CONTINUE TO MONITOR.
[2020-10-02] MEDS: PANTOPRAZOLE 40 MG INJ VIAL IVP SCH ×2 (10:23→20:35)
[2020-10-02] MEDS: DIGOXIN 0.125 MG TAB PO SCH (10:26)
[2020-10-02] MEDS: MAGNESIUM HYDROXIDE 2400 MG/30 ML UDC PO SCH (10:26)
[2020-10-02] MEDS: GABAPENTIN 300 MG CAP PO SCH ×2 (10:26→20:36)
[2020-10-02] MEDS: methocarbamoL 500 MG TAB PO SCH ×4 (10:28→20:35)
--- NOTE | 2020-10-02 10:37 | NUR ---
ADMINISTERED SCHEDULED MEDICATION, MEDICATION EDUCATION PROVIDED, PT TOLERATED WELL, PT IS STABLE, WILL CONTINUE TO MONITOR.
--- NOTE | 2020-10-02 11:16 | NUR ---
MANAGER TECHNICAL TRAINING CALLED PICC LINE NURSE, PICC LINE CONSENT SIGNED BY AND CONSENT OBTAINED, PICC LINE KIT IN PT ROOM. PT VISITING THE PT
--- NOTE | 2020-10-02 11:22 | NUR ---
NOTIFIED DR HURLEY, PER PHARMACY TPN AT 50ML, AND IF THE IV FLUIDS SHOULD BE DISCONTINUED, RECEIVED ORDER TO DISCONTINUE IV FLUIDS WHEN TPN STARTS.
[2020-10-02] MEDS: LEVOFLOXACIN 500 MG/D5W PREMIX 100 ML IV SCH (12:41)
--- NOTE | 2020-10-02 12:50 | NUR ---
ADMINISTERED SCHEDULED MEDICATION, 2 UNITS OF HUMALOG FOR BLOOD GLUCOSE OF 197, MEDICATION EDUCATION PROVIDED, PT TOLERATED WELL, PT IS STABLE, WILL CONTINUE TO MONITOR.
--- NOTE | 2020-10-02 14:13 | NUR ---
ADMINISTERED SCHEDULED MEDICATION, MEDICATION EDUCATION PROVIDED, PT TOLERATED WELL, PT IS STABLE, WILL CONTINUE TO MONITOR, CALL LIGHT WITHIN REACH.
--- NOTE | 2020-10-02 14:45 | NUR ---
PER X-RAY PICC LINE PLACE, PT HAS PICC LINE IN RIGHT UPPER ARM DOUBLE-LUMEN
--- NOTE | 2020-10-02 16:55 | NUR ---
ADMINISTERED SCHEDULED MEDICATION, MEDICATION EDUCATION PROVIDED, PT TOLERATED WELL, WILL CONTINUE TO MONITOR
--- NOTE | 2020-10-02 18:20 | NUR ---
ADMINISTERED 2 UNITS OF HUMALOG FOR BLOOD GLUCOSE OF 188, MEDICATION EDUCATION PROVIDED, PT TOLERATED WELL, PT IS STABLE, WILL CONTINUE TO MONITOR.
--- NOTE | 2020-10-02 19:05 | NUR ---
ENDORSE PT TO NIGHT NURSE FOR CONTINUITY OF CARE, PT IS STABLE
--- NOTE | 2020-10-02 19:13 | NUR ---
RECEIVED BEDSIDE REPORT FROM DAY RN FOR CONTINUITY OF CARE, PT IS AAOX1, PT CONFUSED, RESPIRATIONS ARE LABORED RR 22-26 SAT WELL ON 4L VIA NC 90%. PT WITH COARSE BREATH SOUNDS AND DIMINISHED AT BASE, PT HAS LEFT UA 22G SL AND BARB PICC INFUSING D5 75ML/H, SKIN INTACT WITH BUE BRUISING. ABD IS DISTENDED BOWEL SOUNDS ARE ACTIVE, INTRODUCE SELF, PT CONFUSED, RE-ORIENT PT BUT STILL CONFUSING, SAFETY MEASURES ARE IN PLACE. BED IN LOW POSITION CALL LIGHT WITHIN REACH, WILL CONTINUE TO MONITOR.
--- NOTE | 2020-10-02 19:52 | NUR ---
BARB PICC FLUSHES WELL. TPN STARTED AT ORDERED RATE 50ML/H. MED EDUCATION GIVEN PT VERBALIZED UNDERSTANDING. GAVE ICE CHIPS PER REQUEST PT TOLERATED WELL. SAFETY MEASURES ARE IN PLACE. WILL CONTINUE TO MONITOR.
[2020-10-02] MEDS ORDERED: MULTIVITAMIN-12 10 ML in DEXTROSE 50% 600 ML, AMINO ACIDS 8.5% 500 ML, FAT EMULSION 20%... IV SCH ×4 (20:00)
--- NOTE | 2020-10-02 20:35 | NUR ---
VSS. YESIKA MEDICATION GIVEN PER ORDERS. PT TOLERATED WELL. PT SITTING UP GAVE ICE CHIPS PER REQUEST. PT TOLERATED WELL ALL NEEDS MET. WILL CONTINUE TO MONITOR.
[2020-10-02] MEDS: ATORVASTATIN 20 MG TAB PO SCH (20:36)
--- NOTE | 2020-10-02 22:10 | NUR ---
ROUNDS MADE. PT IS SLEEPING COMFORTABLY IN BED WITH EYES CLOSED. CHEST RISE AND FALL. CALL LIGHT IS WITHIN REACH.
[2020-10-03] VITALS (9 sets, daily range): BP systolic 86–169; BP diastolic 40–127
[2020-10-03] MEDS ORDERED: ACETAMINOPHEN 325 MG TAB PO PRN
--- NOTE | 2020-10-03 | NUR ---
B/P ELEVATED 169/127 HR 87 ADMINISTERED YESIKA VANN WILL RECHECK B/P IN 1 HOUR. BLOOD SUGAR 215 INSULIN ADMINISTERED PER SLIDING SCALE. SAFETY MEASURES ARE IN PLACE. WILL CONTINUE TO MONITOR.
[2020-10-03] MEDS: DILTIAZEM 30 MG TAB PO SCH ×4 (00:20→17:52)
[2020-10-03] MEDS: BLOOD GLUCOSE MONITORING 1 DEV DEV FS SCH ×5 (00:22→23:49)
[2020-10-03] MEDS: INSULIN LISPRO SLIDING SCALE 100 UNITS/ML VIAL SUBQ PRN ×5 (00:24→23:54)
--- NOTE | 2020-10-03 02:00 | NUR ---
ROUNDS MADE. PT IS SLEEPING COMFORTABLY IN BED WITH EYES CLOSED. CHEST RISE AND FALL NOTED. CALL LIGHT IS WITHIN REACH.
--- NOTE | 2020-10-03 04:00 | NUR ---
VITAL SIGNS ARE WITHIN NORMAL LIMITS. GAVE ICE CHIPS PER REQUEST. PT HAS NOT SLEPT DURING THE NIGHT WHEN ASKED IF HE IS NOT TIRED PER PT, "IM WAITING FOR MY TO COME PICK ME UP." REORIENTED PT HE IS IN THE HOSPITAL AND IS GOING TO STAY THE NIGHT. PT REQUEST TO CALL LATER HE DOES NOT WANT TO WAKE HER UP. PT IS MORE AWAKE HOWEVER REMAINS CONFUSED. AAOX1. SAFETY MEASURES ARE IN PLACE. WILL CONTINUE TO MONITOR.
[2020-10-03] MEDS: bisacodyL 5 MG TABEC PO SCH (06:33)
[2020-10-03] MEDS: METOCLOPRAMIDE 10 MG TAB PO SCH ×3 (06:33→16:30)
[2020-10-03] MEDS: ERYTHROMYCIN ETHYLSUCCINATE SUSP 200 MG/5 ML UDC PO SCH ×3 (06:33→16:30)
[2020-10-03 07:26] LABS: MAGNESIUM 2.2 mg/dL (1.8-2.4); PHOSPHORUS 2.8 mg/dL (2.5-4.9)
[2020-10-03 07:27] LABS: ANION GAP 10.8 (8-16); CARBON DIOXIDE 23.9 mmol/L (21-32); CHLORIDE 114 mmol/L (98-107); CREATININE 2.1 mg/dL (0.6-1.3); GLUCOSE 231 mg/dL (74-106); POTASSIUM 3.7 mmol/L (3.5-5.1); SODIUM SERUM 145 mmol/L (136-145); UREA NITROGEN, BLOOD 34 mg/dL (7-18)
--- NOTE | 2020-10-03 07:30 | NUR ---
GAVE BEDSIDE REPORT TO DAY RN. PT ENDORSED IN STABLE CONDITION.
--- NOTE | 2020-10-03 07:35 | NUR ---
RECEIVED BEDSIDE REPORT FROM NIGHTSHIFT NURSE. PT RESTING IN BED. ABLE TO MAKE SOME NEEDS KNOWN. RESPIRATIONS EVEN AND UNLABORED WITH NO SOB OR RESPIRATORY DISTRESS. IV SITE IN R UPPER ARM PICC IS CLEAN, DRY, AND INTACT. SAFETY MEASURES IN PLACE. WILL CONTINUE TO MONITOR
[2020-10-03 07:39] LABS: BASOPHILS % (AUTO) 0.5 % (0.0-2.0); EOSINOPHILS # (AUTO) 0.2 K/uL (0-0.4); EOSINOPHILS % (AUTO) 2.1 % (0.0-4.0); HEMOGLOBIN 7.7 g/dL (12.0-18.0); LYMPHOCYTES % (AUTO) 12.7 % (20.5-51.1); MEAN CORPUSCULAR HEMOGLOBIN 28 pg (27-31); MEAN CORPUSCULAR HGB CONC 32 g/dL (33-37); MEAN CORPUSCULAR VOLUME 88.7 fL (80-94); MONOCYTES # (AUTO) 0.4 K/uL (0.8-1.0); MONOCYTES % (AUTO) 5.1 % (1.7-9.3); NEUTROPHILS # (AUTO) 6.4 K/uL (1.8-7.7); NEUTROPHILS % (AUTO) 79.6 % (42.2-75.2); PLATELET COUNT (AUTO) 210 K/uL (140-450); RED CELL DISTRIBUTION WIDTH 14.7 % (11.6-13.7)
[2020-10-03] MEDS: MAGNESIUM HYDROXIDE 2400 MG/30 ML UDC PO SCH (09:00)
[2020-10-03] MEDS: PANTOPRAZOLE 40 MG INJ VIAL IVP SCH ×2 (09:00→20:15)
[2020-10-03] MEDS: GABAPENTIN 300 MG CAP PO SCH ×2 (09:00→20:16)
[2020-10-03] MEDS: DIGOXIN 0.125 MG TAB PO SCH (09:00)
[2020-10-03] MEDS: methocarbamoL 500 MG TAB PO SCH ×4 (09:00→20:16)
--- NOTE | 2020-10-03 09:30 | NUR ---
MELANI CALLED AND WANTED AN UPDATE. UPDATE GIVEN. WILL CONTINUE TO MONITOR
--- NOTE | 2020-10-03 10:15 | NUR ---
ADMINISTERED SCHED MED PRESCRIBED PER MD ORDER. PT TOLERATED WELL. MEDICATION EDUCATION PERFORMED. PT APHASIC AND UNABLE TO RETURN DEMONSTRATION. SAFETY MEASURES IN PLACE. WILL CONTINUE TO MONITOR
--- NOTE | 2020-10-03 12:00 | NUR ---
PT BLOOD SUGAR IS 239. PRN INSULIN WILL BE ADMINISTERED PRESCRIBED PER MD ORDER. WILL CONTINUE TO MONITOR
--- NOTE | 2020-10-03 12:26 | NUR ---
ADMINISTERED SCHED MED PRESCRIBED PER MD ORDER. HELD BP MEDS DUE TO HD TODAY. MEDICATION EDUCATION PERFORMED. PT VERBALIZED UNDERSTANDING. SAFETY MEASURES IN PLACE. WILL CONTINUE TO MONITOR
--- NOTE | 2020-10-03 14:15 | NUR ---
PT RESTING IN BED. ABLE TO MAKE SOME NEEDS KNOWN. RESPIRATIONS EVEN AND UNLABORED WITH NO SOB OR RESPIRATORY DISTRESS. SAFETY MEASURES IN PLACE. WILL CONTINUE TO MONITOR
--- NOTE | 2020-10-03 14:47 | NUR ---
10/03/2020 RD FOLLOW UP COMPLETED PLEASE REFER TO NUTRITION PROGRESS NOTE UNDER CARE ACTIVITY FOR ESTIMATED NUTRITION NEEDS. RD RECOMMENDATIONS: 1. CONTINUE TPN MEDICALLY APPROPRIATE. 2. IF PT WILL BE ON TUBE FEEDING, CONSIDER GLUCERNA 1.2 AT 65 ML/HR. -THIS PROVIDES 1872 KCAL AND 94 GM PROTEIN, WHICH IS ADEQUATE TO MEET >90% OF ESTIMATED NUTRITIONAL NEEDS. 3. IF/WHEN PATIENT IS MEDICALLY CLEARED FOR ORAL INTAKE, CONSIDER PUREE WITH THIN LIQUIDS PER HEEL TURNER 4. RD TO FOLLOW-UP 2-3 DAYS, HIGH RISK ANTONELLA BATEMAN, RD
--- NOTE | 2020-10-03 16:00 | NUR ---
PT BLOOD PRESSURE IS 86/40. AFTER RETAKING BLOOD PRESSURE X3 IT WAS 86/40, 86/66, AND 75/39. PAGED. DR. HURLEY. RECIVEED ORDERS AND WILL GIVE 500ML BOLUS. WILL CONTINUE TO MONITOR
--- NOTE | 2020-10-03 16:15 | NUR ---
PT OXYGEN DESATURATING TO 80% ON 4L NC. PAGED RT. PLACED PT ON 7L OXYMIZER WITH NO INCREASE IN OXYGEN. INCREASED OXYGEN TO 10L OXYMIZER AND PATIENT IS AT 95%. WILL CONTINUE TO MONITOR
[2020-10-03] MEDS ORDERED: NACL 0.9% 500 ML IV SCH (16:25)
--- NOTE | 2020-10-03 17:30 | NUR ---
STARTED PT ON UNIT OF PRBC. CONSENT ALREADY OBTAINED AND PLACED IN CHART. WILL CONTINUE TO MONITOR
--- NOTE | 2020-10-03 18:00 | NUR ---
HELD PT BLOOD PRESSURE MED DUE TO IT BEING SO LOW. ADMINISTERED SCHED MED PRESCRIBED PER MD ORDER. PT TOLERATED WELL. MEDICATION EDUCATION PERFORMED. PT UNABLE TO VERBALIZE UNDERSTANDING. SAFETY MEASURES IN PLACE. WILL CONTINUE TO MONITOR
--- NOTE | 2020-10-03 18:30 | NUR ---
GAVE PATIENT ICE CHIPS. TOLERATED WELL. NO SIGNS OF DISTRESS NOTED. WILL CONTINUE TO MONITOR
--- NOTE | 2020-10-03 19:20 | NUR ---
ENDORSED AT BEDSIDE WITH NIGHTSHIFT NURSE. PT IS STABLE
[2020-10-03] MEDS: MULTIVITAMIN IV SCH ×4 (20:14)
[2020-10-03] MEDS: [UNRECOGNIZED DRUG - OTHER] IV SCH ×4 (20:14)
[2020-10-03] MEDS: AMINO ACIDS IV SCH ×4 (20:14)
[2020-10-03] MEDS: DEXTROSE IV SCH ×4 (20:14)
[2020-10-03] MEDS: ATORVASTATIN 20 MG TAB PO SCH (20:15)
--- NOTE | 2020-10-03 20:47 | NUR ---
PT RESTING COMFORTABLY ON 7LOXY NO DISTRESS NOTED AT THIS TIME
--- NOTE | 2020-10-03 20:48 | NUR ---
PATIENT SPOUSE CALL, WISHES PATIENT TRY SOMETHING TO EAT EVEN IF HE HAS A WORSENED CONDITION. WANTS THE PATIENT AT HOME, HAS HOSPITAL BED, AND SAYS WILL CARE FOR PATIENT. POSSIBLE HOSPICE OR HOME HEALTH WOULD BE AN OPTION FOR THE PATIENT DID NOT DISCUSS. DISCUSSION WOULD MENTION TO MD SPOUSE REQUEST FOR A DIET ORDER. MIRA RODRIGEZ RN
[2020-10-04] VITALS: BP 105/42
[2020-10-04 04:00] VITALS: BP 80/41
[2020-10-04] MEDS: ERYTHROMYCIN ETHYLSUCCINATE SUSP 200 MG/5 ML UDC PO SCH ×3 (06:50→16:28)
[2020-10-04] MEDS: bisacodyL 5 MG TABEC PO SCH (06:50)
[2020-10-04] MEDS: DILTIAZEM 30 MG TAB PO SCH ×4 (06:51→18:00)
[2020-10-04] MEDS: METOCLOPRAMIDE 10 MG TAB PO SCH ×3 (06:51→16:29)
[2020-10-04] MEDS: BLOOD GLUCOSE MONITORING 1 DEV DEV FS SCH ×3 (06:58→18:29)
[2020-10-04] MEDS: INSULIN LISPRO SLIDING SCALE 100 UNITS/ML VIAL SUBQ PRN ×3 (07:00→18:28)
--- NOTE | 2020-10-04 07:20 | NUR ---
RECEIVED REPORT FROM NIGHT NURSE FOR CONTINUITY OF CARE, PT IS STABLE, PT AAOX2, PT ON 7L OXYGEN VIA OXIMIZER, PT HAS BARB PICC LINE INFUSING TPN AT 80 ML/H, INTRODUCE SELF, BED IN LOW POSITION, SAFETY MEASURES IN PLACE, CALL LIGHT WITHIN REACH, WILL CONTINUE TO MONITOR.
[2020-10-04 07:27] LABS: ANION GAP 15.7 (8-16); CARBON DIOXIDE 21.2 mmol/L (21-32); CHLORIDE 115 mmol/L (98-107); CREATININE 1.7 mg/dL (0.6-1.3); GLUCOSE 274 mg/dL (74-106); POTASSIUM 3.9 mmol/L (3.5-5.1); SODIUM SERUM 148 mmol/L (136-145); UREA NITROGEN, BLOOD 27 mg/dL (7-18)
[2020-10-04 07:33] LABS: MAGNESIUM 2.2 mg/dL (1.8-2.4); PHOSPHORUS 2.9 mg/dL (2.5-4.9)
--- NOTE | 2020-10-04 07:42 | NUR ---
Handoff with SONIA Rodriguez. Julio Campbell RN
[2020-10-04 08:00] VITALS: BP 115/79
--- NOTE | 2020-10-04 08:12 | NUR ---
PT CALLED AND WAS ADAMANT PT RECEIVE CT SCAB MANN, CALLED CT AND NOTIFIED PER FAMILY THEY WANT CT DONE MANN, CT INFORMED THEY HAVE OTHER PT AND WILL NEED HELP TRANSPORTING PT.
[2020-10-04] MEDS: GABAPENTIN 300 MG CAP PO SCH ×2 (09:42→20:56)
[2020-10-04] MEDS: methocarbamoL 500 MG TAB PO SCH ×4 (09:42→20:56)
[2020-10-04] MEDS: MAGNESIUM HYDROXIDE 2400 MG/30 ML UDC PO SCH (09:43)
[2020-10-04] MEDS: PANTOPRAZOLE 40 MG INJ VIAL IVP SCH ×2 (09:43→20:56)
[2020-10-04] MEDS: DIGOXIN 0.125 MG TAB PO SCH (09:43)
--- NOTE | 2020-10-04 09:51 | NUR ---
ADMINISTERED SCHEDULED MEDICATION, MEDICATION EDUCATION PROVIDED, PT TOLERATED WELL, PT IS CONFUSED, PT IS STABLE, WILL CONTINUE TO MONITOR
--- NOTE | 2020-10-04 11:00 | NUR ---
PT IS RESTING IN BED, NO SIGNS OF DISTRESS NOTED, WILL CONTINUE TO MONITOR
[2020-10-04 12:00] VITALS: BP 98/59
--- NOTE | 2020-10-04 12:02 | NUR ---
ADMINISTERED SCHEDULED MEDICATION, MEDICATION EDUCATION PROVIDED, 6 UNITS OF HUMALOG FOR BLOOD GLUCOSE OF 269, PT TOLERATED WELL, PT IS STABLE, WILL CONTINUE TO MONITOR.
--- NOTE | 2020-10-04 12:23 | NUR ---
UPDATED SUZAN ([phone]) PAPER SEALER, TO UPDATE ON PT, IT PT IS TRANSFERRING MD NEEDS TO SPEAK DR HUERTA, THE DIRECTOR,
--- NOTE | 2020-10-04 13:52 | NUR ---
ADMINISTERED SCHEDULED MEDICATION, MEDICATION EDUCATION PROVIDED, PT TOLERATED WELL, PT IS STABLE, WILL CONTINUE TO MONITOR. CALL LIGHT WITHIN REACH,
--- NOTE | 2020-10-04 16:32 | NUR ---
ADMINISTERED SCHEDULED MEDICATION, MEDICATION EDUCATION PROVIDED, PT TOLERATED WELL, PT IS STABLE, WILL CONTINUE TO MONITOR. CALL LIGHT WITHIN REACH.
--- NOTE | 2020-10-04 16:46 | NUR ---
NOTIFIED DR TRINH PT NEEDS BREATHING TREATMENT, RECEIVED TORB FOR XOPENEX 1.25 MG Q4 HRS PRN, WILL INPUT ORDER AND CARRY IT OUT.
[2020-10-04 18:00] VITALS: BP 108/54
--- NOTE | 2020-10-04 18:29 | NUR ---
ADMINISTERED 6 UNITS OF HUMALOG FOR BLOOD GLUCOSE OF 252, MEDICATION EDUCATION PROVIDED, TPN ONGOING, CT DONE, PT IS STABLE, WILL CONTINUE TO MONITOR.
--- NOTE | 2020-10-04 19:20 | NUR ---
ENDORSE PT TO NIGHT NURSE FOR CONTINUITY OF CARE, PT IS STABLE
[2020-10-04 20:00] VITALS: BP 105/47
[2020-10-04] MEDS: AMINO ACIDS IV SCH ×4 (20:44)
[2020-10-04] MEDS: MULTIVITAMIN IV SCH ×4 (20:44)
[2020-10-04] MEDS: [UNRECOGNIZED DRUG - OTHER] IV SCH ×4 (20:44)
[2020-10-04] MEDS: DEXTROSE IV SCH ×4 (20:44)
[2020-10-04] MEDS: ATORVASTATIN 20 MG TAB PO SCH (20:56)
[2020-10-05] VITALS: BP 112/58
[2020-10-05] MEDS: BLOOD GLUCOSE MONITORING 1 DEV DEV FS SCH ×4 (01:29→18:42)
[2020-10-05] MEDS: INSULIN LISPRO SLIDING SCALE 100 UNITS/ML VIAL SUBQ PRN ×4 (01:32→18:41)
[2020-10-05 04:00] VITALS: BP 106/56
[2020-10-05] MEDS: DILTIAZEM 30 MG TAB PO SCH ×4 (06:00→18:00)
[2020-10-05] MEDS: bisacodyL 5 MG TABEC PO SCH (06:01)
[2020-10-05] MEDS: ERYTHROMYCIN ETHYLSUCCINATE SUSP 200 MG/5 ML UDC PO SCH ×3 (06:51→17:14)
[2020-10-05] MEDS: METOCLOPRAMIDE 10 MG TAB PO SCH ×3 (06:51→17:15)
[2020-10-05 07:09] LABS: BASOPHILS % (AUTO) 0.4 % (0.0-2.0); EOSINOPHILS # (AUTO) 0.2 K/uL (0-0.4); EOSINOPHILS % (AUTO) 2.5 % (0.0-4.0); HEMATOCRIT 27.7 % (36-52); LYMPHOCYTES # (AUTO) 0.9 K/uL (2.0-11.5); LYMPHOCYTES % (AUTO) 13.6 % (20.5-51.1); MEAN CORPUSCULAR HEMOGLOBIN 30 pg (27-31); MEAN CORPUSCULAR HGB CONC 33 g/dL (33-37); MEAN CORPUSCULAR VOLUME 90.9 fL (80-94); MONOCYTES # (AUTO) 0.3 K/uL (0.8-1.0); NEUTROPHILS # (AUTO) 5.3 K/uL (1.8-7.7); NEUTROPHILS % (AUTO) 78.5 % (42.2-75.2); PLATELET COUNT (AUTO) 170 K/uL (140-450); RED BLOOD CELL COUNT(AUTO) 3.05 MIL/uL (4.20-6.10); RED CELL DISTRIBUTION WIDTH 16.1 % (11.6-13.7); WHITE BLOOD COUNT (AUTO) 6.8 K/uL (4.8-10.8)
[2020-10-05 07:13] LABS: ANION GAP 12.7 (8-16); CARBON DIOXIDE 24.1 mmol/L (21-32); CHLORIDE 116 mmol/L (98-107); CREATININE 1.6 mg/dL (0.6-1.3); GLUCOSE 243 mg/dL (74-106); POTASSIUM 3.8 mmol/L (3.5-5.1); SODIUM SERUM 149 mmol/L (136-145); UREA NITROGEN, BLOOD 27 mg/dL (7-18)
[2020-10-05 07:21] LABS: MAGNESIUM 2.1 mg/dL (1.8-2.4); PHOSPHORUS 3.7 mg/dL (2.5-4.9)
--- NOTE | 2020-10-05 07:23 | NUR ---
HANDOFF WITH SONIA SILVA. MIRA RODRIGEZ RN
--- NOTE | 2020-10-05 07:25 | NUR ---
RECEIVED PT FROM PROJECT HIRE NURSE, PT IS AWAKE AND LYING ON THE BED WITH SIDE RAILS UP AND CALL LIGHT WITHIN REACH,SAFETY AND FALL PRECAUTION IN PLACE, BARB PICC LINE DOUBLE LUMEN IN PLACE WITH TPN INFUSING AT 80ML/HR, INTACT, LEFT UA G. [address], PT IS ON O2 7L VIA OXYMIZER, NO SIGN OF DISTRESS NOTED AND WILL MONITOR PT.
[2020-10-05 08:00] VITALS: BP 103/56
[2020-10-05] MEDS: GABAPENTIN 300 MG CAP PO SCH (09:00)
[2020-10-05] MEDS: DIGOXIN 0.125 MG TAB PO SCH (09:00)
[2020-10-05] MEDS: methocarbamoL 500 MG TAB PO SCH ×4 (09:00→20:58)
[2020-10-05] MEDS: MAGNESIUM HYDROXIDE 2400 MG/30 ML UDC PO SCH (09:00)
[2020-10-05] MEDS: PANTOPRAZOLE 40 MG INJ VIAL IVP SCH ×2 (10:39→20:57)
--- NOTE | 2020-10-05 10:39 | NUR ---
PT WAS GIVEN PROTONIX IV PUSH NOW, SCHEDULED AM MEDICATIONS ORALLY WERE NOT GIVEN TO PT D/T PT NOT FULLY AWAKE AND NPO.
[2020-10-05] MEDS ORDERED: DEXTROSE 50% IV SCH ×5 (10:47)
[2020-10-05] MEDS ORDERED: HUMAN IV SCH ×5 (10:47)
[2020-10-05] MEDS ORDERED: [UNRECOGNIZED DRUG - OTHER] IV SCH ×5 (10:47)
[2020-10-05] MEDS ORDERED: INSULIN REGULAR IV SCH ×5 (10:47)
[2020-10-05] MEDS ORDERED: MULTIVITAMIN IV SCH ×5 (10:47)
[2020-10-05 12:00] VITALS: BP 153/126
--- NOTE | 2020-10-05 12:42 | NUR ---
PT WAS GIVEN INSULIN 6 UNITS FOR BLOOD GLUCOSE OF 285, ON THE ABDOMEN, WILL MONITOR PT.
--- NOTE | 2020-10-05 13:10 | NUR ---
ENDORSED PT TO RN CHANEL FOR CONTINUITY OF CARE.
--- NOTE | 2020-10-05 13:15 | NUR ---
RECEIVED REPORT FROM NURSE FOR CONTINUITY OF CARE, PT HAS BARB PICC LINE INFUSING TPN AT 80ML/H, PT ON 7L OXIMIZER, PT IS STABLE, WILL CONTINUE TO MONITOR.
[2020-10-05 16:00] VITALS: BP 93/36
--- NOTE | 2020-10-05 17:22 | NUR ---
ADMINISERED SCHEDULED MEDICATION, MEDICATION EDUCATION PROVIDED, PT TOLERATED WELL, PT IS STABLE, AT BEDSIDE, WILL CONTINUE TO MONITOR.
--- NOTE | 2020-10-05 17:45 | NUR ---
RECEIVED VERBAL ORDER FROM DR MARIA FOR C-REACTIVE PROTEIN AND PROLACTIN
[2020-10-05] MEDS: LEVALBUTEROL 1.25 MG/0.5 ML NEBU INH PRN (17:50)
--- NOTE | 2020-10-05 18:42 | NUR ---
ADMINISTERED 6 UNITS OF HUMALOG FOR BLOOD GLUCOSE OF 264, MEDICATION EDUCATION PROVIDED, PT TOLERATED WELL, PT IS STABLE, RECEIVED VERBAL ORDER FOR CONDOM CATH FROM DR BATISTA
--- NOTE | 2020-10-05 19:15 | NUR ---
ENDORSE PT TO NIGHT NURSE FOR CONTINUITY OF CARE, PT STABLE
[2020-10-05] MEDS: ATORVASTATIN 20 MG TAB PO SCH (20:57)
--- NOTE | 2020-10-05 23:51 | NUR ---
PLACEMENT OF MEDIUM SIZE CONDOM CATHETER. PATIENT MAY NEED LARGE SIZE. WAS ALSO INCONTINENT DURING PLACEMENT WHICH MAY AFFECT THE ADHERENCE OF THE DEVICE. PLAN: CHECK ON DEVICE AND PATIENT COMPLIANCE WITH DEVICE FREQUENTLY. MIRA RODRIGEZ RN
[2020-10-06] VITALS: BP 96/51
[2020-10-06] MEDS: BLOOD GLUCOSE MONITORING 1 DEV DEV FS SCH ×4 (00:32→17:08)
[2020-10-06] MEDS: INSULIN LISPRO SLIDING SCALE 100 UNITS/ML VIAL SUBQ PRN ×4 (00:36→17:11)
--- NOTE | 2020-10-06 02:55 | NUR ---
CONDOM CATHETER NOT IN PLACE. WILL PLACE LARGE CONDOM CATHETER. WILL ROUND TO CHECK DEVICE COMPLIANCE. MIRA RODRIGEZ RN
[2020-10-06 04:00] VITALS: BP 99/69
[2020-10-06] MEDS: bisacodyL 5 MG TABEC PO SCH ×2 (05:12→05:25)
[2020-10-06] MEDS: DILTIAZEM 30 MG TAB PO SCH ×4 (05:12→17:04)
--- NOTE | 2020-10-06 06:30 | NUR ---
UNABLE TO KEEP PATIENT WITH CONDOM CATHETER FOR THE SHIFT. FOUND IT ON THE GROUND AFTER A FEW HOURS. PATIENT APPEARS TO TUG IT OFF. MIRA RODRIGEZ RN
[2020-10-06] MEDS: ERYTHROMYCIN ETHYLSUCCINATE SUSP 200 MG/5 ML UDC PO SCH ×3 (06:34→17:01)
[2020-10-06] MEDS: METOCLOPRAMIDE 10 MG TAB PO SCH ×3 (06:34→17:01)
[2020-10-06] MEDS: LEVALBUTEROL 1.25 MG/0.5 ML NEBU INH PRN ×2 (07:17→21:45)
--- NOTE | 2020-10-06 07:17 | NUR ---
HANDOFF WITH SONIA HICKS. MIRA RODRIGEZ RN
--- NOTE | 2020-10-06 07:17 | NUR ---
RECEIVED PT CONFUSED , W/ O2 OXIMIXER AT 7LPM , ON TELE MONITOR . W/ BARB PICC LINE DOUBLE LUMEN - W/ ON GOPING TPN - TOLERATED WELL . W/ XAVIER - SL I- - INTACT AND PATENT . WILL REFER TO RT FOR FURTHER ASSESSMENT - O2 SAY UP AND DOWN . WILL REFER TO SINGLE CORNER CUTTER FOR POSSIBLE RESTRAINST ORDER . FOR CLOSELY WATCH . FOR CONDOM CATH .
[2020-10-06 08:00] VITALS: BP 88/58
[2020-10-06 08:16] LABS: ANION GAP 13.8 (8-16); CARBON DIOXIDE 24.2 mmol/L (21-32); CHLORIDE 117 mmol/L (98-107); CREATININE 1.4 mg/dL (0.6-1.3); GLUCOSE 208 mg/dL (74-106); SODIUM SERUM 151 mmol/L (136-145); UREA NITROGEN, BLOOD 27 mg/dL (7-18)
[2020-10-06 08:44] LABS: PHOSPHORUS 3.7 mg/dL (2.5-4.9)
[2020-10-06] MEDS: MAGNESIUM HYDROXIDE 2400 MG/30 ML UDC PO SCH (09:00)
[2020-10-06] MEDS: DIGOXIN 0.125 MG TAB PO SCH (09:00)
--- NOTE | 2020-10-06 09:00 | NUR ---
CONFUSED - WILL REFER TO RT FOT FURTHER ASSESSMENT - O2 SAT UP AND DOWN - WILL CONT. TO MONITOR .
--- NOTE | 2020-10-06 09:10 | NUR ---
SOFT WRIST APPLIED ORDERED BY DR. PEREZ - ALBERTO DEJESUS TO MONITOR . Addendum: 10/06/20 at 1045 by Claudine Painter RN SOFT WRIST RESTRAINT APPLIED . W/ ORDER
[2020-10-06] MEDS: PANTOPRAZOLE 40 MG INJ VIAL IVP SCH ×2 (09:11→21:16)
--- NOTE | 2020-10-06 09:11 | NUR ---
INCREASED FLOW TO 15 LPM, DUR TO DESATURATION BELOW 85, PT SAT ELEVATED TO 90 AFTER INCREASE IN FLOW
--- NOTE | 2020-10-06 09:13 | NUR ---
assesed by rt
[2020-10-06] MEDS: GABAPENTIN 300 MG CAP PO SCH (09:21)
[2020-10-06] MEDS: methocarbamoL 500 MG TAB PO SCH ×4 (09:21→21:15)
--- NOTE | 2020-10-06 09:40 | NUR ---
88/58 - REFER TO Barry BATISTA .- NSS 250 CC BOLUS STAT TEL. ORDER - WILL CARRY OUT .
[2020-10-06] MEDS ORDERED: NACL 0.9% 250 ML IV ONE (09:45)
[2020-10-06] MEDS ORDERED: NACL 0.9% 250 ML IV SCH (09:50)
--- NOTE | 2020-10-06 10:10 | NUR ---
ADMINITER NSS BOLUS ORDERED BY DR. Betty BATISTA - WILL CONT. TO MONITOR.
--- NOTE | 2020-10-06 10:35 | NUR ---
ENDORSED TO AM SHIFT - PT - STABLE - W/ ON GOING NSS BOLUS - BP RE CHECK - 90/60 .
--- NOTE | 2020-10-06 10:38 | NUR ---
CALL PLACE TO AND UPDATED HER, AWARE PT WILL BE TRANSFER TO HIGHER LEVEL OF CARE, DIAL POLISHER IS WORKING ON IT.
--- NOTE | 2020-10-06 11:10 | NUR ---
TITRATED O2 BACK DOWN TO 10 LPM, PT SAT MAINTAINED ABOVE 92, WILL CONTINUE TO MONITOR.
[2020-10-06] MEDS: DEXTROSE 5% 1,000 ML IV SCH (11:35)
[2020-10-06 12:00] VITALS: BP 106/58
--- NOTE | 2020-10-06 15:27 | NUR ---
10/06/20 RD FOLLOW UP COMPLETED PLEASE REFER TO NUTRITION ASSESSMENT UNDER CARE ACTIVITY FOR ESTIMATED NUTRITIONAL NEEDS. 1. CONTINUE TPN MEDICALLY APPROPRIATE. CURRENT TPN D15%, AA 4.25% @ 80 ML/HR LIPIDS 10% 200 ML PROVIDE 1505 KCAL AND 81 GM OF PROTEIN. THIS MEEDS 74% OF KCAL NEEDS AND 100% OF PROTEIN NEEDS 2. IF PT WILL BE ON TUBE FEEDING, CONSIDER GLUCERNA 1.2 AT 65 ML/HR. -THIS PROVIDES 1872 KCAL AND 94 GM PROTEIN, WHICH IS ADEQUATE TO MEET >90% OF ESTIMATED NUTRITIONAL NEEDS 3. IF/WHEN PATIENT IS MEDICALLY CLEARED FOR ORAL INTAKE, CONSIDER PUREE WITH THIN LIQUIDS PER WAREHOUSE WORKER 2ND SHIFT [address]. RD TO FOLLOW-UP 2-3 DAYS, HIGH RISK ROBBIE BARNARD RD
[2020-10-06 16:00] VITALS: BP 120/57
--- NOTE | 2020-10-06 17:24 | NUR ---
Pt's surgical incision healed, no skin issues at this time. C/D/I
[2020-10-06] MEDS ORDERED: METOCLOPRAMIDE 10 MG/2 ML INJ VIAL IVP PRN (18:55)
--- NOTE | 2020-10-06 19:54 | NUR ---
DISCONTINUE RESTRAINTS UPON BEGINNING OF SHIFT, 1914. MIRA RODRIGEZ RN
[2020-10-06 20:00] VITALS: BP 126/61
[2020-10-06] MEDS: [UNRECOGNIZED DRUG - OTHER] IV SCH ×10 (20:00→21:48)
[2020-10-06] MEDS: MULTIVITAMIN IV SCH ×10 (20:00→21:48)
[2020-10-06] MEDS: DEXTROSE 50% IV SCH ×10 (20:00→21:48)
[2020-10-06] MEDS: INSULIN REGULAR IV SCH ×10 (20:00→21:48)
[2020-10-06] MEDS: HUMAN IV SCH ×10 (20:00→21:48)
--- NOTE | 2020-10-06 21:04 | NUR ---
PHARMACIST NOTIFICATION TO CLARIFY REGLAN ORDER WITH MD. PHARMACIST VERBALIZES UNDERSTANDING. MIRA RODRIGEZ RN
[2020-10-06] MEDS: ATORVASTATIN 20 MG TAB PO SCH (21:16)
--- NOTE | 2020-10-06 21:45 | NUR ---
RECEIVED REPORT FROM AM SHIFT. PT SEEN AND ASSESSED. PT IS NO 10L OXYMIZER WITH SPO2 OF 88%. COARSE CRACKLES BREATH SOUNDS ON AUSCULTATION. PRN TX GIVEN AND PT TOLERATED TX WELL WITH NO ADVERSE REACTION. POST TX SPO2 95%. PT IS IN NO APPARENT RESPIRATORY DISTRESS AT THIS TIME. WILL CONTINUE TO MONITOR PT.
[2020-10-07] VITALS: BP 98/32
[2020-10-07] MEDS: BLOOD GLUCOSE MONITORING 1 DEV DEV FS SCH ×4 (00:32→18:05)
[2020-10-07] MEDS: INSULIN LISPRO SLIDING SCALE 100 UNITS/ML VIAL SUBQ PRN ×4 (00:36→18:10)
[2020-10-07 04:00] VITALS: BP 105/52
--- NOTE | 2020-10-07 05:38 | NUR ---
SPOUSE, MAURICIO, NOT SURE WHAT TO DO AFTER TALKING WITH PROVIDER. SHE SAYS SHE WOULD WANT TO PROBABLY TRY THE FEEDING TUBE IF IT WAS POSSIBLE EVEN GIVEN THE POOR PROBABILITY THE PATIENT WOULD LIVE. THE OTHER OPTION SHE WAS MOVING TOWARD WAS HOSPICE AT HOME IF SHE HAD A FEEDING TUBE IN PLACE. MIRA RODRIGEZ RN
[2020-10-07] MEDS: DILTIAZEM 30 MG TAB PO SCH ×4 (06:00→18:00)
[2020-10-07] MEDS: bisacodyL 5 MG TABEC PO SCH (06:00)
[2020-10-07] MEDS: DEXTROSE 5% 1,000 ML IV SCH (06:51)
[2020-10-07 07:14] LABS: ANION GAP 14.6 (8-16); CARBON DIOXIDE 22.8 mmol/L (21-32); CHLORIDE 114 mmol/L (98-107); CREATININE 1.7 mg/dL (0.6-1.3); GLUCOSE 273 mg/dL (74-106); POTASSIUM 4.4 mmol/L (3.5-5.1); SODIUM SERUM 147 mmol/L (136-145); UREA NITROGEN, BLOOD 33 mg/dL (7-18)
--- NOTE | 2020-10-07 07:18 | NUR ---
HANDOFF WITH SONIA AYALA. MIRA RODRIGEZ RN
[2020-10-07 07:20] LABS: MAGNESIUM 1.9 mg/dL (1.8-2.4)
--- NOTE | 2020-10-07 07:23 | NUR ---
RECEIVED REPORT FROM NIGHTSHIFT NURSE. PT RESTING IN BED. ABLE TO MAKE NEEDS KNOWN. RESPIRATIONS EVEN AND UNLABORED WITH NO SOB OR RESPIRATORY DISTRESS. PICC LINE DOUBLE LUMEN AND L ARM 20G IS CLEAN, DRY, AND INTACT. SAFETY MEASURES IN PLACE. WILL CONTINUE TO MONITOR
[2020-10-07] MEDS: LEVALBUTEROL 1.25 MG/0.5 ML NEBU INH PRN (07:53)
[2020-10-07 08:00] VITALS: BP 125/80
--- NOTE | 2020-10-07 08:32 | NUR ---
SPOKE WITH PA FROM [facility] ABOUT PT POSSIBLE TRANSFER THERE. PA WANTED TO SPEAK WITH LORE MONROE. GAVE EXTENSION TO LORE MONROE AND INFORMED MD ABOUT PT CONDITION. PER PA, WANTED NOTE DOCUMENTED CALL. WILL CONTINUE TO MONITOR
--- NOTE | 2020-10-07 08:39 | NUR ---
SPOKE WITH BORIS DURAND FOR DR HORN NEUROSURGEON @ [facility] WHO DID OUTPT SURGERY ON KEILY SHARMA. PA WAS STATING THAT FAMILY HAD CONTACTED MD ABOUT TRANSFER TO [facility] FOR GTUBE PLACEMENT AND THAT THE HOSPITAL/MD WOULD BE WILLING TO ACCEPT PT FOR PROCEDURE. PH #[phone]. WILL UPDATE TERRIE AND LUCY PATTON.
[2020-10-07] MEDS: DIGOXIN 0.125 MG TAB PO SCH (09:30)
[2020-10-07] MEDS: PANTOPRAZOLE 40 MG INJ VIAL IVP SCH (09:30)
[2020-10-07] MEDS: methocarbamoL 500 MG TAB PO SCH ×3 (09:30→17:28)
[2020-10-07] MEDS: MAGNESIUM HYDROXIDE 2400 MG/30 ML UDC PO SCH (09:30)
[2020-10-07] MEDS: GABAPENTIN 300 MG CAP PO SCH (09:30)
--- NOTE | 2020-10-07 09:39 | NUR ---
ADMINISTERED SCHED MED PRESCRIBED PER MD ORDER. PT TOLERATED WELL. MEDICATION EDUCATION PERFORMED. PT UNABLE TO VERBALIZE UNDERSTANDING. SAFETY MEASURES IN PLACE. WILL CONTINUE TO MONITOR
--- NOTE | 2020-10-07 11:30 | NUR ---
PERFORMED COVID ARCELIA SWAB PRESCRIBED PER MD ORDER. PT TOLERATED WELL. SPECIMEN SENT TO LAB. WILL CONTINUE TO MONITOR
--- NOTE | 2020-10-07 11:51 | NUR ---
SPOKE WITH DR. MARIA AND INFORMED HIM OF DR. ESCALANTE THE PA AT [facility] WANTING TO SPEAK WITH HIM. WILL CONTINUE TO MONITOR
[2020-10-07 12:00] VITALS: BP 114/89
--- NOTE | 2020-10-07 12:05 | NUR ---
PT BLOOD SUGAR IS 277. ADMINISTERED PRN INSULIN PRESCRIBED PER MD ORDER. PT TOLERATED WELL. MEDICATION EDUCATION. PT UNABLE TO VERBALIZE UNDERSTANDING. WILL CONTINUE TO MONITOR
--- NOTE | 2020-10-07 12:10 | NUR ---
PT IV IN L ARM 20G IS NO LONGER FLUSHING AND IS GETTING NO BLOOD RETURN. REMOVED INTACT IV CANNULA. PICC LINE IS WORKING PROPERLY WITHOUT COMPLICATIONS. SAFETY MEASURES IN PLACE. WILL CONTINUE TO MONITOR
--- NOTE | 2020-10-07 13:14 | NUR ---
ADMINISTERED SCHED MED PRESCRIBED PER MD ORDER. PT TOLERATED WELL. MEDICATION EDUCATION PERFORMED. PT VERBALIZED UNDERSTANDING. SAFETY MEASURES IN PLACE. WILL CONTINUE TO MONITOR
--- NOTE | 2020-10-07 13:20 | NUR ---
PT SAT 96%, TITRATED O2 DOWN TO 8LPM, PT RESTING COMFORTABLY, WILL CONTINUE TO MONITOR
--- NOTE | 2020-10-07 15:15 | NUR ---
PT RESTING IN BED. ABLE TO MAKE NEEDS KNOWN. RESPIRATIONS EVEN AND UNLABORED WITH NO SOB OR RESPIRATORY DISTRESS. SAFETY MEASURES IN PLACE. WILL CONTINUE TO MONITOR
[2020-10-07 16:00] VITALS: BP 97/45
[2020-10-07] MEDS: LEVOFLOXACIN 500 MG/D5W PREMIX 100 ML IV SCH (17:27)
--- NOTE | 2020-10-07 17:33 | NUR ---
ADMINISTERED SCHED MED PRESCRIBED PER MD ORDER. PT TOLERATED WELL. MEDICATION EDUCATION PERFORMED. PT UNABLE TO VERBALIZE UNDERSTANDING. SAFETY MEASURES IN PLACE. WILL CONTINUE TO MONITOR
--- NOTE | 2020-10-07 18:00 | NUR ---
PT BLOOD SUGAR IS 246. PRN INSULIN WILL BE ADMINISTERED PRESCRIBED PER MD ORDER. WILL CONTINUE TO MONITOR
--- NOTE | 2020-10-07 18:12 | NUR ---
ADMINISTERED SCHED MED PRESCRIBED PER MD ORDER. PT TOLERATED WELL. MEDICATION EDUCATION PERFORMED. PT UNABLE TO VERBALIZE UNDERSTANDING. SAFETY MEASURES IN PLACE. WILL CONTINUE TO MONITOR
--- NOTE | 2020-10-07 18:54 | NUR ---
PT RESTING IN BED AND IS STABLE. WILL ENDORSE TO NIGHTSHIFT
[2020-10-08] MEDS: BLOOD GLUCOSE MONITORING 1 DEV DEV FS SCH ×4 (06:00→18:10)
[2020-10-08] MEDS: INSULIN LISPRO SLIDING SCALE 100 UNITS/ML VIAL SUBQ PRN ×3 (06:24→18:13)
--- NOTE | 2020-10-08 07:30 | NUR ---
RECEIVED PT ALERT, EYES OPEN, WITHDRAW TO PAIN STIMULI. ON TPN AND IVF. NO SOB. CONDOM CATH INTACT. BARB PICC IN PLACE AND PATENT. REPORT RECEIVED FROM PM NURSE. WILL CONTINUE POC.
[2020-10-08 08:00] VITALS: BP 77/33
[2020-10-08] MEDS ORDERED: MIDODRINE 5 MG TAB PO SCH (09:00)
[2020-10-08] MEDS: MAGNESIUM HYDROXIDE 2400 MG/30 ML UDC PO SCH (09:17)
[2020-10-08] MEDS: GABAPENTIN 300 MG CAP PO SCH (09:19)
[2020-10-08] MEDS: DIGOXIN 0.125 MG TAB PO SCH (09:20)
[2020-10-08 10:28] LABS: ANION GAP 11.3 (8-16); CHLORIDE 115 mmol/L (98-107); CREATININE 1.6 mg/dL (0.6-1.3); GLUCOSE 274 mg/dL (74-106); POTASSIUM 4.3 mmol/L (3.5-5.1); SODIUM SERUM 148 mmol/L (136-145); UREA NITROGEN, BLOOD 35 mg/dL (7-18)
[2020-10-08 10:42] LABS: MAGNESIUM 2.2 mg/dL (1.8-2.4); PHOSPHORUS 3.6 mg/dL (2.5-4.9)
[2020-10-08 12:00] VITALS: BP 90/46
--- NOTE | 2020-10-08 12:00 | NUR ---
ORAL SUCTIONING DONE. OBTAINED 92 % O2 SAT. WILL CONTINUE TO MONITOR.
[2020-10-08] MEDS: methocarbamoL 500 MG TAB PO SCH ×3 (13:00→21:00)
--- NOTE | 2020-10-08 14:30 | NUR ---
DR. OVIEDO ORDERED PT FOR EGD. NOTED. FAMILY NOTIFIED.
[2020-10-08] MEDS: MIDODRINE 5 MG TAB PO SCH ×2 (15:08→21:00)
[2020-10-08] MEDS: DILTIAZEM 30 MG TAB PO SCH ×3 (15:08→21:00)
[2020-10-08 16:00] VITALS: BP 92/40
--- NOTE | 2020-10-08 16:55 | NUR ---
[facility] CONSULT FOR MALNUTRITION AND DIABETES WAS RECEIVED. PT WILL BE ASSESSED 1-2 DAYS AFTER RECEIVING CONSULT. 10/09/20-10/10/[address]
[2020-10-08] MEDS: LEVOFLOXACIN 500 MG/D5W PREMIX 100 ML IV SCH (17:00)
--- NOTE | 2020-10-08 17:00 | NUR ---
SEEN AND EXAMINED BY DR. MARIA. ORDERED TO HAVE PT FOR SWALLOW EVAL. NOTED. PT KEPT NPO. PT ON ASPIRATION PRECAUTION.
[2020-10-08] MEDS ORDERED: POTASSIUM CHLORIDE 10 MEQ in DEXTROSE 5% 1,000 ML IV SCH (17:20)
[2020-10-08] MEDS: INSULIN LANTUS 100 UNITS/ML 10 ML VIAL SUBQ SCH (18:16)
--- NOTE | 2020-10-08 19:15 | NUR ---
ENDORSED PM NURSE FOR THE CONTINUITY OF CARE. NO CHANGE OF CONDITION.
[2020-10-08 20:00] VITALS: BP 145/97
--- NOTE | 2020-10-08 20:00 | NUR ---
RECEIVED BEDSIDE REPORT FROM DAY RN FOR CONTINUITY OF CARE. PT AWAKE BUT CONFUSED, SITTING UPRIGHT IN BED. NO SIGN AND SYMPTOMS OF DISTRESS NOTED. NO COMPLAIN AT THIS TIME. ON 8L OXYMIZER,SATING 97%. TPN AND IVF INFUSING ORDERED. BED IN LOW POSITION AND SIDE RAILS UP. VSS, AFEBRILE, AFIB ON DIESEL MAINTENANCE TECHNICIAN, HR 99. CALL LIGHT WITHIN REACH. WILL CONTINUE POC AND MONITORING.
--- NOTE | 2020-10-08 20:58 | NUR ---
RECEIVED REPORT FROM AM SHIFT. PT SEEN AND ASSESSED. FOUND PATIENT 0N 8L OXYMIZER. SPO2 OF 93%. PATIENT DID NOT COMPLAIN OF SOB. PATIENT IS IN NO APPARENT RESPIRATORY DISTRESS AT THIS TIME. PRN TREATMENT NOT INDICATED AT THIS TIME. PATIENT WAS INFORMED TO CALL RN OR INSURANCE SALES SUPERVISOR FOR PRN TX WHEN EXPERIENCING SHORTNESS OF BREATH. WILL CONTINUE TO MONITOR PT.
[2020-10-08] MEDS: PANTOPRAZOLE 40 MG INJ VIAL IVP SCH (21:00)
[2020-10-08] MEDS: ATORVASTATIN 20 MG TAB PO SCH (21:00)
[2020-10-08] MEDS: DEXTROSE 5% 1,000 ML IV SCH ×2 (21:59→23:35)
--- NOTE | 2020-10-08 22:00 | NUR ---
PATIENT REFUSED HIS PO MEDS. OTHER IV MEDS GIVEN ORDERED. NO ADVERSE DRUG REACTION NOTED.
[2020-10-08] MEDS: [UNRECOGNIZED DRUG - OTHER] IV SCH ×5 (22:08)
[2020-10-08] MEDS: INSULIN REGULAR IV SCH ×5 (22:08)
[2020-10-08] MEDS: HUMAN IV SCH ×5 (22:08)
[2020-10-08] MEDS: MULTIVITAMIN IV SCH ×5 (22:08)
[2020-10-08] MEDS: DEXTROSE 50% IV SCH ×5 (22:08)
[2020-10-08] MEDS: HYDROCORTISONE NA SUCC 100 MG/2 ML VIAL IV SCH (22:09)
[2020-10-09] VITALS: BP 122/91
--- NOTE | 2020-10-09 | NUR ---
VITAL SIGNS STABLE ,AFEBRILE,SATING 97% ON 8L OXYMIZER.AFIB ON TELE MONITOR, HR-101.
[2020-10-09] MEDS ORDERED: ACETYLCYSTEINE 10% (100 MG/ML) 100 MG/ML VIAL ONE (01:03)
[2020-10-09] MEDS: PANTOPRAZOLE 40 MG INJ VIAL IVP SCH ×3 (01:03→21:46)
[2020-10-09] MEDS: INSULIN LISPRO SLIDING SCALE 100 UNITS/ML VIAL SUBQ PRN ×5 (01:08→18:17)
[2020-10-09] MEDS: LEVALBUTEROL 1.25 MG/0.5 ML NEBU INH PRN ×3 (01:11→20:55)
[2020-10-09] MEDS: DILTIAZEM 30 MG TAB PO SCH ×5 (01:11→18:22)
[2020-10-09] MEDS ORDERED: CRUSHER, PILL MC ONE (01:16)
--- NOTE | 2020-10-09 02:00 | NUR ---
PT ASLEEP AT THIS TIME. NO S/SX OF DISTRESS NOTED. VISIBLE CHEST RISE AND FALL NOTED.
[2020-10-09 04:00] VITALS: BP 75/48
--- NOTE | 2020-10-09 04:00 | NUR ---
SUCTIONED PT PRN. MOUTH CARE PROVIDED.
[2020-10-09] MEDS: bisacodyL 5 MG TABEC PO SCH (06:23)
[2020-10-09] MEDS: MIDODRINE 5 MG TAB PO SCH ×3 (06:23→21:44)
[2020-10-09] MEDS: BLOOD GLUCOSE MONITORING 1 DEV DEV FS SCH ×4 (06:23→18:15)
--- NOTE | 2020-10-09 07:56 | NUR ---
PT STABLE. NO S/SX OF DISTRESS NOTED.NO COMPLAIN AT THIS TIME. ALL NEEDS ATTENDED. CALL LIGHT WITHIN REACH. ENDORSED THE PT TO DAY SONIA AYALA FOR CONTINUITY OF CARE. PATIENT REFUSED TO BE CLEANED ALL NIGHT AND SOMETIMES NOT COOPERATIVE WITH CARE.NOTED WHEN WE ARE CLEANING THE PT THIS AM THAT HE HAS A WOUND ON THE SACRAL AREA. FOAM DRESSING APPLIED.TRIED TO TAKE PICTURE BUT THE CAMERA'S MEMORY CARD SAYS ITS LOCKED. ENDORSED TO SONIA AYALA TO TAKE A PICTURE OF THE PT WOUND ON SACRUM. CALL LIGHT WITHIN REACH. SIGNING OFF.
--- NOTE | 2020-10-09 07:57 | NUR ---
REC'D BEDSIDE REPORT FROM NIGHTSHIFT NURSE. PATIENT IS STABLE AND LAYING IN BED. WILL CONT W/ POC.
[2020-10-09 08:00] VITALS: BP 86/50
[2020-10-09 08:07] LABS: MAGNESIUM 2.2 mg/dL (1.8-2.4); PHOSPHORUS 3.3 mg/dL (2.5-4.9)
[2020-10-09 08:15] LABS: ANION GAP 14.4 (8-16); CARBON DIOXIDE 23.3 mmol/L (21-32); CHLORIDE 114 mmol/L (98-107); CREATININE 1.7 mg/dL (0.6-1.3); GLUCOSE 337 mg/dL (74-106); POTASSIUM 4.7 mmol/L (3.5-5.1); SODIUM SERUM 147 mmol/L (136-145); UREA NITROGEN, BLOOD 39 mg/dL (7-18)
[2020-10-09] MEDS: INSULIN LANTUS 100 UNITS/ML 10 ML VIAL SUBQ SCH (09:00)
[2020-10-09] MEDS: DIGOXIN 0.125 MG TAB PO SCH ×2 (09:00→10:31)
[2020-10-09] MEDS: MAGNESIUM HYDROXIDE 2400 MG/30 ML UDC PO SCH ×3 (09:00→11:06)
[2020-10-09] MEDS: HYDROCORTISONE NA SUCC 100 MG/2 ML VIAL IV SCH ×2 (09:00→21:44)
[2020-10-09] MEDS: methocarbamoL 500 MG TAB PO SCH ×4 (10:31→21:44)
[2020-10-09] MEDS: GABAPENTIN 300 MG CAP PO SCH (10:32)
--- NOTE | 2020-10-09 11:07 | NUR ---
ADMINISTERED SCHEDULED AND PRN MEDS PER MD ORDER, CRUSHED IN APPLESAUCE. HELD DIGOXIN BP 86/50, HELD MAG HYDROXIDE NPO. PATIENT TOLERATED WELL. REINFORCEMENT NEEDED. SAFETY MEASURES IN PLACE. WILL CONT TO MONITOR.
[2020-10-09 12:00] VITALS: BP 89/59
--- NOTE | 2020-10-09 12:00 | NUR ---
PT BLOOD SUGAR IS 250. PRN INSULIN WILL BE ADMINISTRATED PRESCRIBED PER MD ORDER. SAFETY MEASURES IN PLACE WILL CONTINUE TO MONITOR.
--- NOTE | 2020-10-09 12:45 | NUR ---
*ST: Notes* Order for repeat bedside swallow eval received and case reviewed. Pt last seen by this MANAGER FIELD 10/01/2020. Pt has complex GI issues (duodenal obstruction), having NGT to LIS 09/26-09/29, EGD 09/27 - obstruction in the duodenum from adhesions. Per MD progress notes, pt was unable to tolerate diet with increased abdominal distention and therefore made NPO ?10/01/2020 or 10/02/2020. For now, Pt has been receiving nutrition via TPN. Plan of care included possible GJ-tube placement (G-tube to suction and J-tube for nutrition) but pt is high risk for surgery. Pertinent imaging below: CT Abdomen & Pelvis 10/01 - distention of stomach may represent gastric outlet obstruction or gastroparesis. CT Chest 10/03 - multifocal bilateral patchy infiltrates; bibasilar pleural thickening/effusion. Noted that pt received a recent bedside swallow re-eval on 10/07/2020 (please see paper notes in physical chart) with recommendation for NPO x medications and frequent oral care and suctioning. Complex case d/w pt's RN, Radha. As no functional intervention has been done to alleviate duodenal obstruction, hold PO trials at this time. RN also reported that pt is NPO, pending EGD today for possible placement of NJ-tube. MD may re-order swallow eval when intervention has been made for lower GI obstruction. -Kaitlyn Mccormack MA, [facility]-MANAGER FIELD
--- NOTE | 2020-10-09 12:55 | NUR ---
ADMINISTERED SCHED MED PRESCRIBED PER MD ORDER. PT TOLERATED WELL. MEDICATION EDUCATION PERFORMED. PT UNABLE TO VERBALIZE UNDERSTANDING. SAFETY MEASURES IN PLACE. WILL CONTINUE TO MONITOR
[2020-10-09] MEDS: ACETYLCYSTEINE 10% (100 MG/ML) 100 MG/ML VIAL INH SCH ×2 (13:00→19:00)
--- NOTE | 2020-10-09 13:31 | NUR ---
PT WENT OFF TO SURGERY. REPORT GIVEN AT BEDSIDE. WILL CONTINUE TO MONITOR
[2020-10-09] MEDS ORDERED: diphenhydrAMINE 50 MG/ML VIAL ONE (13:44)
[2020-10-09] MEDS ORDERED: fentaNYL citrate 0.05 MG/ML VIAL ONE (13:45)
[2020-10-09] MEDS ORDERED: MIDAZOLAM 5 MG/5 ML VIAL ONE (13:45)
--- NOTE | 2020-10-09 14:25 | NUR ---
WOUND CARE EVALUATION NOTE: REASON FOR EVALUATION: MULTIPLE WOUNDS PRIMARY RN REPORT OF CHANGE OF SKIN CONDITION. SKIN ASSESSMENT DONE WITH PRIMARY RN ON THIS 75 Y/O PT ADMITTED FROM SNF TO [facility] WITH DX OF S/P FALL. PAST MEDICAL HX INCLUDES OF HYPERTENSION, TYPE 1 DIABETES, COPD WITH BASELINE OXYGEN REQUIREMENT OF 4 L NASAL CANNULA. A. FIB. PT. HAD EPISODES OF HYPOTENSION, H/H 9.0/27.7, ALBUMIN 2.3, PT/INR 14.1/1.42 AND GLUCOSE 337. PER RECORD PT IS PHYSICAL DECONDITIONING,ACUTE HYPOXIC RESPIRATORY FAILURE,ACUTE CHF EXACERBATION .ALL ABOVE INFORMATION OBTAINED FROM ADMISSION H&P. PT IS AWAKE. SKIN IS WARM AND MOIST, PT. IS ON TPN, BLE NO HAIR GROWTH, +1 EDEMA. DORSAL PEDAL PULSES PRESENT AND DIMINISH. CAPILLARY REFILLED >3 SEC. X 10 TOES. INCONTINENT OF BOWEL AND BLADDER X1 DURING ASSESSMENT. PLAN OF CARE DISCUSSED WITH PRIMARY RN. MELANI AND DR. MARIA NOTIFIED BY PRIMARY RN. POC DISCUSSED WITH TORB WITH DR. MARIA WITH WOUND CARE NURSE., PT. IS PENDING TRANSFER FOR GI PROCEDURE PER . COMORBIDITIES RELATED TO DELAY WOUND HEALING, FURTHER SKIN BREAKS AND UN-AVOIDABLE PRESSURE INJURY: BOWEL AND URINARY INCONTINENCE, INFECTION, DM, KIDNEY FAILURE , LOW ALBUMIN LEVEL, HYPOXEMIC DECREASE TISSUE PERFUSION, DECREASE MOBILITY AND INCREASE OF FRICTION DUE TO PT. BEHAVIOR, AND HOB ELEVATED THE MAJORITY OF TIMES DUE TO MEDICAL REASONS. INTEGUMENTARY: -ORAL MEMBRANE PINK INTACT, LIPS, CHEEKS SKIN MOIST, NO OPEN WOUNDS -ABDOMEN DISTENDED, SOFT, SKIN INTACT -INCONTINENT ASSOCIATE DERMATITIS (IAD) TO: POSTERIOR SCROTAL TO AMELIA-ANAL, SKIN REDNESS -DTI TO RIGHT ELBOW 3X5CM 100% MAROON, SKIN INTACT -PRESSURE ULCER INJURY DTI, COCCYX 3X1CM, AMELIA-WOUND SKIN MOIST, SURROUNDING REDNESS EXTENDED TO SACRAL - PRESSURE ULCER INJURY DTI, SACRUM EXTENDED TO LEFT BUTTOCK 9X8CM 100% MAROON, SKIN INTACT -PRESSURE ULCER INJURY DTI, SACRUM EXTENDED TO RIGHT BUTTOCK 16X7CM 100% MAROON, SKIN INTACT - RIGHT INNER BUTTOCK SEVERE MAD WITH PARTIAL THICKNESS SKIN LOSS, 2X1.5X0.1CM WOUND BED IS RED, 100% GRANULATING TISSUE, MOIST NO ODOR, AMELIA WOUND DENUDED SKIN EXTENDED TO AMELIA-ANAL AREA. -PRESSURE ULCER INJURY DTI TO LEFT HEEL 3X3.5CM, AMELIA WOUND SKIN NON-BLANCHABLE SKIN INTACT - PRESSURE ULCER INJURY UN-STAGEABLE 2X2CM TO RIGHT HEEL AMELIA WOUND SKIN DARK PURPLE COLOR INDICATED FURTHER DAMAGE, SKIN INTACT RECOMMENDATIONS: -MAY INSERT RECTAL TUBE PER PROTOCOL IF CONTINUE TO LOOSE WATERY BM -APPLY THIN LAYER OF Z GUARD TO POSTERIOR SCROTAL AND AMELIA-ANAL BID AND PRN IF SOILING -CLEANSE RIGHT INNER BUTTOCK WITH WOUND CLEANSING SOLUTION AND APPLY THERAHONEY GEL COVER WITH DRY DRESSING QD AND PRN IF SOILING -APPLY FOAM DRESSING TO RIGHT ELBOW, SACROCOCCYX, RIGHT AND LEFT BUTTOCKS Q3 DAYS AND PRN IF SOILING, OFFLOADING AREAS -APPLY HEEL RAISER TO BOTH HEELS AND OFFLOADING AT ALL TIMES -OFFLOAD BILATERAL HEELS BY PLACING PILLOWS UNDER CALVES UNLESS OTHERWISE CONTRAINDICATED -PRESSURE REDISTRIBUTION SURFACE THERAPY -TURN AND REPOSITION Q2H, OFFLOAD SACRALCOCCYX AND BUTTOCKS BY TURNING RIGHT AND LEFT -CONTINUE TO FOLLOW RD RECOMMENDATIONS PLEASE CONTACT WOUND CARE NURSE FOR ANY QUESTION AND CHANGE OF WOUND CONDITION.
--- NOTE | 2020-10-09 14:45 | NUR ---
PT RETURNED BACK FROM SURGERY. POST OP VITALS OBTAINED. PT HAS NJ TUBE AND IS TOLERATING WELL. RESPIRATIONS EVEN AND UNLABORED WITH NO SOB OR RESPIRATORY DISTRESS. SAFETY MEASURES IN PLACE. WILL CONTINUE TO MONITOR
[2020-10-09] MEDS ORDERED: MIDAZOLAM 2 MG/2 ML VIAL IVP ONE (15:20)
[2020-10-09] MEDS ORDERED: FOAM DRESSING TP PRN (15:30)
[2020-10-09 16:00] VITALS: BP 86/50
--- NOTE | 2020-10-09 16:02 | NUR ---
10/09/20 RD RECOMMENDATIONS: PLEASE REFER TO NUTRITION ASSESSMENT UNDER CARE ACTIVITY FOR ESTIMATED NUTRITIONAL NEEDS. 1. GRADUALLY WEAN OFF TPN IF TUBE FEEDING IS TOLERATED. -CURRENT TPN D15%, AA 4.25% @ 80 ML/HR LIPIDS 10% 200 ML PROVIDE 1505 KCAL AND 81 GM OF PROTEIN. 2. GRADUALLY INTRODUCE ENERAL NUTRITION, CURRENT ORDER IS GLUCERNA 1.2 @ 200 ML Q4H -PROVIDES 1200 ML OF VOLUME, 1440 KCAL, AND 73 GM OF PROTEIN 3. RECOMMEND GLUCERNA 1.2 @ 70 ML/HR X 24 HR -PROVIDES 2016 KCAL AND 101 GM OF PROTEIN. MEETING 100% OF ESTIMATED NEEDS 4. RECOMMEND FREE WATER FLUSH OF 110 ML Q4H 5. RECOMMEND VITAMIN C 500 MG AND MULTIVITAMIN DAILY 6. RD TO FOLLOW-UP 2-3 DAYS, HIGH RISK ROBBIE BARNARD RD
[2020-10-09] MEDS: LEVOFLOXACIN 500 MG/D5W PREMIX 100 ML IV SCH (17:47)
--- NOTE | 2020-10-09 18:23 | NUR ---
ADMINISTERED PRESCRIBED AND PRN MEDS PER MD ORDER. CARDIZEM HELD DUE TO BP 86/50. PATIENT TOLERATED WELL. UNABLE TO PROVIDE MEDICATION EDUCATION, REINFORCEMENT NEEDED. SAFETY MEASURES IN PLACE. WILL CONT TO MONITOR.
--- NOTE | 2020-10-09 19:10 | NUR ---
RECEIVED BEDSIDE REPORT FROM NIGHTSHIFT NURSE. PATIENT IS STABLE AND LAYING IN BED. RESPIRATIONS EVEN UNLABORED. ON 11 L OXYMIZER. NO SIGNS OF DISTRESS NOTED WILL CONT W/ POC.
--- NOTE | 2020-10-09 19:39 | NUR ---
BEDSIDE REPORT GIVEN TO NIGHTSHIFT NURSE. PATIENT IS STABLE.
[2020-10-09 20:00] VITALS: BP 84/50
[2020-10-09] MEDS: HUMAN IV SCH ×5 (20:00)
[2020-10-09] MEDS: MULTIVITAMIN IV SCH ×5 (20:00)
[2020-10-09] MEDS: [UNRECOGNIZED DRUG - OTHER] IV SCH ×5 (20:00)
[2020-10-09] MEDS: INSULIN REGULAR IV SCH ×5 (20:00)
[2020-10-09] MEDS: DEXTROSE 50% IV SCH ×5 (20:00)
[2020-10-09] MEDS: DEXTROSE 5% 1,000 ML IV SCH (20:33)
[2020-10-09] MEDS ORDERED: ACETYLCYSTEINE 10% (100 MG/ML) 100 MG/ML VIAL INH SCH (20:45)
[2020-10-09] MEDS ORDERED: VANCOMYCIN PER PHARMACY MC PRN (21:25)
[2020-10-09] MEDS: ATORVASTATIN 20 MG TAB PO SCH (21:44)
[2020-10-09] MEDS ORDERED: VANCOMYCIN 1,500 MG in DEXTROSE 5% 500 ML IV SCH (22:05)
[2020-10-10] VITALS: BP 82/52
[2020-10-10] MEDS: BLOOD GLUCOSE MONITORING 1 DEV DEV FS SCH ×4 (00:30→18:22)
[2020-10-10] MEDS: INSULIN LISPRO SLIDING SCALE 100 UNITS/ML VIAL SUBQ PRN ×4 (00:34→18:27)
--- NOTE | 2020-10-10 01:15 | NUR ---
CHECKED PATIENT. PATIENT SLEEPING RESPIRATION EVEN UNLABORED ON 8L OXYMIZER NO DISTRESS. NOTED WILL CONTINUE TO MONITOR.
[2020-10-10] MEDS: Z-GUARD PASTE TP SCH ×2 (01:48→12:50)
--- NOTE | 2020-10-10 03:15 | NUR ---
CHECKED PATIENT. PATIENT SLEEPING RESPIRATION EVEN UNLABORED ON 8L OXYMIZER MASK NO DISTRESS NOTED WILL CONTINUE TO MONITOR.
[2020-10-10 04:00] VITALS: BP 82/47
--- NOTE | 2020-10-10 04:00 | NUR ---
SUCTIONED PT PRN. MOUTH CARE PROVIDED.
[2020-10-10] MEDS: DILTIAZEM 30 MG TAB PO SCH ×4 (06:00→18:00)
[2020-10-10] MEDS: bisacodyL 5 MG TABEC PO SCH (06:00)
[2020-10-10] MEDS: MIDODRINE 5 MG TAB PO SCH ×3 (06:47→20:04)
[2020-10-10] MEDS: ACETYLCYSTEINE 10% (100 MG/ML) 100 MG/ML VIAL INH SCH ×3 (06:53→19:00)
[2020-10-10] MEDS: LEVALBUTEROL 1.25 MG/0.5 ML NEBU INH PRN ×2 (06:53→13:09)
--- NOTE | 2020-10-10 07:47 | NUR ---
PT STABLE. ENDORSED PM NURSE FOR THE CONTINUITY OF CARE. NO CHANGE OF CONDITION. NO S/S OF DISTRESS.
--- NOTE | 2020-10-10 07:50 | NUR ---
RECEIVED PT FROM LAP CUTTER NURSE, PT RESTING IN BED, NJ TUBE IN PLACE GLULCERNA @ 70ML/HR , ON 8 L OXIMIZER, CONDOM CATH PRESENT, BARB PICC LINE RUNNING AT @ 50ML/HR, TELE MONITOR ON, SAFETY AND FALL PRECAUTIONS IN PLACE, WILL CONTINUE TO MONITOR,
[2020-10-10 08:00] VITALS: BP 135/80
[2020-10-10] MEDS: HYDROCORTISONE NA SUCC 100 MG/2 ML VIAL IV SCH ×2 (09:51→21:31)
[2020-10-10] MEDS: methocarbamoL 500 MG TAB PO SCH ×4 (09:52→20:05)
[2020-10-10] MEDS: PANTOPRAZOLE 40 MG INJ VIAL IVP SCH ×2 (09:52→21:32)
[2020-10-10] MEDS: DIGOXIN 0.125 MG TAB PO SCH (09:53)
[2020-10-10] MEDS: GABAPENTIN 300 MG CAP PO SCH (09:53)
--- NOTE | 2020-10-10 09:57 | NUR ---
PT WAS GIVEN THE SCHEDULED AM MEDICATIONS NOW VIA NJ TUBE, RESIDUAL IS 15ML, BP IS 135/80, PULSE IS 108, WILL MONITOR PT.
[2020-10-10] MEDS: INSULIN LANTUS 100 UNITS/ML 10 ML VIAL SUBQ SCH (10:00)
[2020-10-10] MEDS: VANCOMYCIN 1,500 MG in DEXTROSE 5% 500 ML IV SCH (10:39)
--- NOTE | 2020-10-10 10:39 | NUR ---
PT WAS GIVEN VANCOMYCIN IVPB NOW, WILL MONITOR PT.
--- NOTE | 2020-10-10 11:08 | NUR ---
SPOKE TO SAVANNA VILA FROM [facility] AT [phone] LAWLER SPOKE TO DR. MARIA AND RECOMMENDED THAT PT CAN JUST GO BACK TO THE NURSING FACILITY.
[2020-10-10 11:16] LABS: ANION GAP 12.6 (8-16); CARBON DIOXIDE 22.8 mmol/L (21-32); CHLORIDE 115 mmol/L (98-107); CREATININE 1.7 mg/dL (0.6-1.3); GLUCOSE 312 mg/dL (74-106); POTASSIUM 4.4 mmol/L (3.5-5.1); SODIUM SERUM 146 mmol/L (136-145); UREA NITROGEN, BLOOD 45 mg/dL (7-18)
[2020-10-10 11:20] LABS: MAGNESIUM 2.3 mg/dL (1.8-2.4); PHOSPHORUS 4.1 mg/dL (2.5-4.9)
--- NOTE | 2020-10-10 11:30 | NUR ---
CONDOM CATH WAS LEAKING, NEW CONDOM CATH IS NOW IN PLACE, PT IS RESTING IN BED, WILL CONTINUE TO MONITOR
[2020-10-10 12:00] VITALS: BP 82/44
--- NOTE | 2020-10-10 12:47 | NUR ---
HUMALOG INSULIN WAS ADMINISTERED PER PROTOCOL, BS 306, DILTIAZEM HELD PER PARAMETERS, BP 81/48 HR 79, PT IS RESTING IN BED, WILL CONTINUE TO MONITOR
[2020-10-10] MEDS: THERAHONEY GEL 42.5 GM TP SCH (12:50)
--- NOTE | 2020-10-10 13:00 | NUR ---
SCHEDULED MEDICATIONS ADMINISTERED, PT TOLERATED MEDS WELL, TEACHING GIVEN, WILL CONTINUE TO MONITOR
--- NOTE | 2020-10-10 13:25 | NUR ---
RT AT BEDSIDE, PER MD PT IS TO WEAN OFF OF OXYGEN, OXIMIZER WAS REMOVED AND PT IS NOW ON NC @ 4LPM, WILL CONTINUE TO MONITOR
--- NOTE | 2020-10-10 13:41 | NUR ---
SPOKE TO SAVANNA VILA FROM [facility] AND INFORMED THAT THE PT'S PREFER FOR PT TO BE BROUGHT TO [facility] IN [place] AND SAVANNA VILA SAID THAT SHE WILL CALL THE AND WILL LET HER KNOW IF THE PLACE WILL BE APPROVED BY THEIR DOCTOR.
[2020-10-10] MEDS ORDERED: CAR30 PO (14:49)
[2020-10-10] MEDS ORDERED: CEFE2SOL IV (14:49)
[2020-10-10] MEDS ORDERED: DIGO0.1211 PO (14:49)
--- NOTE | 2020-10-10 15:06 | NUR ---
PT IS RESTING IN BED, TUBE FEEDING IS RUNNING, NO SIGNS OF DISTRESS NOTED, WILL CONTINUE TO MONITOR
[2020-10-10] MEDS: DEXTROSE 5% 1,000 ML IV SCH ×2 (15:35→23:58)
[2020-10-10 16:00] VITALS: BP 6/46
[2020-10-10] MEDS: LEVOFLOXACIN 500 MG/D5W PREMIX 100 ML IV SCH (17:54)
--- NOTE | 2020-10-10 18:31 | NUR ---
INSULIN ADMINISTERED PER PROTOCOL, 7 UNITS FOR 291 BS, PT IS RESTING IN BED, WILL CONTINUE TO MONITOR
--- NOTE | 2020-10-10 19:30 | NUR ---
ENDORSED PT TO SYSTEMS DEVELOPER NURSE FOR CONTINUITY OF CARE.
--- NOTE | 2020-10-10 19:31 | NUR ---
RECEIVED BEDSIDE ENDORSEMENT FROM AM SHIFT RN. IN FOWLERS POSITION. ON 4L NC, O2 SAT WNL, NO DISTRESS, WITH CONDOM CATH ENDORSED, BARB PICC 2 LUMENS, ON NJ TUBE, INTACT, INFUSING GLUCERNA 1.2 AT 70CC/HR WITH O2 FLUSH OF 100 CC/HR. FALL PROTOCOL IN PLACE, SAFETY MEASURES IN PLACE, PLAN OF CARE DISCUSSED, CALL LIGHT WITHIN REACH.
[2020-10-10 20:00] VITALS: BP 69/37
[2020-10-10] MEDS: ATORVASTATIN 20 MG TAB PO SCH (20:05)
--- NOTE | 2020-10-10 21:34 | NUR ---
DUE MEDS GIVEN ORDERED, TOLERATED WELL, NO DISTRESS.
[2020-10-10] MEDS ORDERED: NACL 0.9% 500 ML IV ONE (23:10)
--- NOTE | 2020-10-10 23:13 | NUR ---
INFORMED AS[address] BUCKLEY: BP OF 69/37 AT 2003, GAVE MIDODRINE 10MG PO ORDERED, BP WAS RECHECKED AT 2200 65/40, HR 84. DR. YANES ORDERED NS 500ML BOLUS. NOTED AND CARRIED. PT IS NOT IN DISTRESS. FLACC 0. O2 SAT WNL. WILL CLOSELY MONITOR, CALL LIGHT WITHIN REACH.
[2020-10-11] VITALS: BP 101/66
[2020-10-11] MEDS: BLOOD GLUCOSE MONITORING 1 DEV DEV FS SCH ×4 (00:19→18:34)
[2020-10-11] MEDS: ACETYLCYSTEINE 10% (100 MG/ML) 100 MG/ML VIAL INH SCH ×4 (01:00→20:15)
--- NOTE | 2020-10-11 01:00 | NUR ---
HAD LARGE SOFT BM, CLEANSED AND REPOSITIONED FOR COMFORT WITH PILLOWS.
[2020-10-11] MEDS: Z-GUARD PASTE TP SCH ×2 (01:48→12:15)
--- NOTE | 2020-10-11 03:15 | NUR ---
HAD ANOTHER LARGE LOOSE BM, CLEANSED AND REPOSITIONED WITH PILLOWS FOR COMFORT.
[2020-10-11 04:00] VITALS: BP 74/49
--- NOTE | 2020-10-11 05:00 | NUR ---
HAD ANOTHER LARGE SOFT BM, CLEANSED AND REPOSITIONED FOR COMFORT.
[2020-10-11] MEDS: bisacodyL 5 MG TABEC PO SCH (06:00)
[2020-10-11] MEDS: DILTIAZEM 30 MG TAB PO SCH ×4 (06:00→18:00)
[2020-10-11] MEDS: INSULIN LISPRO SLIDING SCALE 100 UNITS/ML VIAL SUBQ PRN ×4 (06:36→22:08)
[2020-10-11] MEDS: MIDODRINE 5 MG TAB PO SCH ×3 (06:40→21:57)
[2020-10-11] MEDS: LEVALBUTEROL 1.25 MG/0.5 ML NEBU INH PRN ×3 (06:53→20:18)
[2020-10-11 06:58] LABS: ANION GAP 13.1 (8-16); CARBON DIOXIDE 22.8 mmol/L (21-32); CHLORIDE 112 mmol/L (98-107); CREATININE 1.7 mg/dL (0.6-1.3); GLUCOSE 312 mg/dL (74-106); POTASSIUM 3.9 mmol/L (3.5-5.1); SODIUM SERUM 144 mmol/L (136-145); UREA NITROGEN, BLOOD 45 mg/dL (7-18)
--- NOTE | 2020-10-11 07:00 | NUR ---
RESTING COMFORTABLY SLEEPING IN BED, CONDITION REMAIN STABLE. WILL ENDORSE TO AM SHIFT NURSE FOR CONTINUITY OF CARE.
[2020-10-11 07:13] LABS: MAGNESIUM 2.3 mg/dL (1.8-2.4); PHOSPHORUS 3.7 mg/dL (2.5-4.9)
[2020-10-11 08:00] VITALS: BP 88/58
[2020-10-11] MEDS: INSULIN LANTUS 100 UNITS/ML 10 ML VIAL SUBQ SCH ×2 (09:00→22:08)
[2020-10-11] MEDS: MAGNESIUM HYDROXIDE 2400 MG/30 ML UDC PO SCH (09:00)
[2020-10-11 09:24] LABS: BASOPHILS % (AUTO) 0.4 % (0.0-2.0); EOSINOPHILS % (AUTO) 0.3 % (0.0-4.0); HEMATOCRIT 23.4 % (36-52); HEMOGLOBIN 7.5 g/dL (12.0-18.0); LYMPHOCYTES # (AUTO) 0.6 K/uL (2.0-11.5); LYMPHOCYTES % (AUTO) 13.7 % (20.5-51.1); MEAN CORPUSCULAR HEMOGLOBIN 29 pg (27-31); MEAN CORPUSCULAR HGB CONC 32 g/dL (33-37); MEAN CORPUSCULAR VOLUME 90.2 fL (80-94); MONOCYTES # (AUTO) 0.3 K/uL (0.8-1.0); MONOCYTES % (AUTO) 6.1 % (1.7-9.3); NEUTROPHILS # (AUTO) 3.6 K/uL (1.8-7.7); NEUTROPHILS % (AUTO) 79.5 % (42.2-75.2); PLATELET COUNT (AUTO) 170 K/uL (140-450); RED BLOOD CELL COUNT(AUTO) 2.59 MIL/uL (4.20-6.10); RED CELL DISTRIBUTION WIDTH 16.8 % (11.6-13.7); WHITE BLOOD COUNT (AUTO) 4.5 K/uL (4.8-10.8)
[2020-10-11] MEDS: HYDROCORTISONE NA SUCC 100 MG/2 ML VIAL IV SCH (09:52)
[2020-10-11] MEDS: PANTOPRAZOLE 40 MG INJ VIAL IVP SCH ×2 (09:52→22:11)
[2020-10-11] MEDS: DIGOXIN 0.125 MG TAB PO SCH (09:53)
[2020-10-11] MEDS: GABAPENTIN 300 MG CAP PO SCH (09:54)
[2020-10-11] MEDS: methocarbamoL 500 MG TAB PO SCH ×4 (09:54→21:57)
[2020-10-11] MEDS: DEXTROSE 5% 1,000 ML IV SCH (11:35)
[2020-10-11] MEDS ORDERED: VANC1FRO IV (11:39)
[2020-10-11] MEDS ORDERED: DEXT100S62 IV (11:39)
[2020-10-11 12:00] VITALS: BP 84/65
[2020-10-11] MEDS: VANCOMYCIN 1,500 MG in DEXTROSE 5% 500 ML IV SCH (12:14)
[2020-10-11] MEDS: THERAHONEY GEL 42.5 GM TP SCH (12:15)
--- NOTE | 2020-10-11 12:20 | NUR ---
SCHEDULED MEDICATIONS DUE GIVEN. WILL CONTINUE TO MONITOR.
[2020-10-11 16:00] VITALS: BP 86/55
[2020-10-11] MEDS: LEVOFLOXACIN 500 MG/D5W PREMIX 100 ML IV SCH (18:34)
--- NOTE | 2020-10-11 18:36 | NUR ---
SCHEDULED MEDICATIONS DUE GIVEN. WILL CONTINUE TO MONITOR.
--- NOTE | 2020-10-11 19:15 | NUR ---
RECEIVED REPORT OF PT.CONDITION IS STABLE.NGT FEEDING IS IN PROGRESS.CALL LIGHT IN REACH.F/C PATENT.IVF INFUSING WELL.HR IS A-FIB.WILL CONT.MONITORING.
--- NOTE | 2020-10-11 19:24 | NUR ---
GAVE REPORT TO STRIKE WARFARE/MISSILE SYSTEMS OFFICER NURSE FOR CONTINUITY OF CARE. PATIENT IN STABLE CONDITION.
[2020-10-11 20:00] VITALS: BP 74/48
[2020-10-11] MEDS: ATORVASTATIN 20 MG TAB PO SCH (21:57)
[2020-10-12] VITALS: BP 91/65
[2020-10-12] MEDS: Z-GUARD PASTE TP SCH ×2 (01:00→13:00)
[2020-10-12] MEDS: INSULIN LISPRO SLIDING SCALE 100 UNITS/ML VIAL SUBQ PRN ×4 (01:29→17:39)
[2020-10-12] MEDS: ACETYLCYSTEINE 10% (100 MG/ML) 100 MG/ML VIAL INH SCH ×4 (01:34→19:00)
[2020-10-12] MEDS: LEVALBUTEROL 1.25 MG/0.5 ML NEBU INH PRN ×4 (01:35→20:51)
[2020-10-12 04:00] VITALS: BP 84/51
[2020-10-12] MEDS: MIDODRINE 5 MG TAB PO SCH ×3 (05:42→21:28)
--- NOTE | 2020-10-12 05:50 | NUR ---
SLEEPING.NO DISTRESS NOTED AT PRESENT TIME.
[2020-10-12] MEDS: BLOOD GLUCOSE MONITORING 1 DEV DEV FS SCH ×4 (05:51→17:41)
[2020-10-12] MEDS: DILTIAZEM 30 MG TAB PO SCH ×4 (06:00→17:35)
[2020-10-12] MEDS: bisacodyL 5 MG TABEC PO SCH (06:00)
--- NOTE | 2020-10-12 07:20 | NUR ---
RECEIVED REPORT FROM NIGHT NURSE FOR CONTINUITY OF CARE, PT IS STABLE, PT ON 4L OXYGEN VIA NC, PT ON NGT FEEDING WITH GLUCERNA AT 70 ML/H, PT HAS BARB PICC INFUSING D5W AT 50ML/H, PT HAS DTI ON SACRAL AND BUTTOCK, SAFETY MEASURES IN PLACE, WILL CONTINUE TO MONITOR.
[2020-10-12 07:31] LABS: MAGNESIUM 2.3 mg/dL (1.8-2.4); PHOSPHORUS 3.9 mg/dL (2.5-4.9)
[2020-10-12 07:37] LABS: CARBON DIOXIDE 23.7 mmol/L (21-32); CHLORIDE 110 mmol/L (98-107); CREATININE 1.7 mg/dL (0.6-1.3); GLUCOSE 228 mg/dL (74-106); POTASSIUM 3.7 mmol/L (3.5-5.1); SODIUM SERUM 144 mmol/L (136-145); UREA NITROGEN, BLOOD 43 mg/dL (7-18)
--- NOTE | 2020-10-12 07:37 | NUR ---
ENDORSED TO AM RN IN STABLE CONDITION.
[2020-10-12] MEDS: DEXTROSE 5% 1,000 ML IV SCH (07:41)
[2020-10-12 08:00] VITALS: BP 115/70
[2020-10-12] MEDS: MAGNESIUM HYDROXIDE 2400 MG/30 ML UDC PO SCH (09:00)
[2020-10-12] MEDS: GABAPENTIN 300 MG CAP PO SCH (10:08)
[2020-10-12] MEDS: methocarbamoL 500 MG TAB PO SCH ×4 (10:09→21:28)
[2020-10-12] MEDS: DIGOXIN 0.125 MG TAB PO SCH (10:09)
[2020-10-12] MEDS: FLUDROCORTISONE 0.1 MG TAB NG SCH (10:09)
[2020-10-12] MEDS: PANTOPRAZOLE 40 MG INJ VIAL IVP SCH ×2 (10:10→21:27)
[2020-10-12] MEDS: INSULIN LANTUS 100 UNITS/ML 10 ML VIAL SUBQ SCH ×2 (10:11→21:30)
--- NOTE | 2020-10-12 10:25 | NUR ---
ADMINISTERED SCHEDULED MEDICATION, MEDICATION EDUCATION PROVIDED, PT TOLERATED WELL, PT IS STABLE, WILL CONTINUE TO MONITOR.
--- NOTE | 2020-10-12 11:02 | NUR ---
CALL TO MELANI, , MESSAGE LEFT TO CALL BACK FOR UPDATE JOSEPHINE ON SKIN. Addendum: 10/12/20 at 1356 by Dilip Gonzales (Grace) RN NOTE:13:20 WOUND CARE FOLLOW UP PER PRIMARY RN,AND A RN AND A SOURCING INTERNSHIP WHO TOOK CARE OF PT. ON THE WEEKENDS THAT PT. REFUSED HEEL RAISERS, PT. ALSO HAD FEW EPISODES OF LOOSE BM. SPOKE TO MELANI ALL ABOVE INFORMATION GIVEN.POC DISCUSSED WITH SHORT TERM MOISTURE CONTROL FOR WOUND CARE SUCH RECTAL TUBE AND F/C, ALSO UPDATE OF NEW SKIN BREAKS TO BUTTOCK GROOVES AND LEFT LATERAL LEG. PER SHE UNDERSTAND THAT PT. IS NOT A CANDIDATE FOR SURGERY AND PT WITH HI RISK ASPIRATION,PT. IS ON NGT FEEDING, EXPLAIN TO NUTRITION PLAYS IMPORTANT ROLE WOUND HEALING AND PREVENT FURTHER SKIN BREAKS. POC DISCUSSED WITH COMORBIDITIES EXPLAINS, SHE VERBALIZES UNDERSTANDING AND SHE IS TRYING TO GET PT. TO [facility] PENDING INSURANCE APPROVAL. POC DISCUSSED WITH PRIMARY RN, REMOVE BUTTOCKS Z-GUARD, PHOTO TAKEN, REVIEW ORDERS AND RECOMMENDATIONS WITH PRIMARY RN FOR CONTINUES CARE. -SEVERE MAD TO BUTTOCK GROOVES 4X0.5CM SUPERFICIAL DEPTH, WOUND BED IS 100% RED, MOIST, NO ODOR, AMELIA WOUND SKIN INTACT SURROUNDING SKIN MERGED WITH BUTTOCKS PURPLE DTI -LLE LATERAL OPEN BLISTER, SKIN FLAT OFF, PARTIAL THICKNESS SKIN LOSS 3X2CM SUPERFICIAL DEPTH,WOUND BED IS 100% RED, MOIST, NO ODOR, AMELIA WOUND SKIN INTACT RECOMMENDATION: -CLEANSE BUTTOCKS GROOVES AND LLE ON LATERAL SIDE WOUNDS WITH NS, PAT DRY APPLY THERAHONEY GEL AND COVER WITH DRY DRESSING QD AND PRN.
[2020-10-12] MEDS: VANCOMYCIN 1,500 MG in DEXTROSE 5% 500 ML IV SCH (11:48)
--- NOTE | 2020-10-12 11:51 | NUR ---
ADMINISTERED SCHEDULED MEDICATION, MEDICATION EDUCATION PROVIDED, PT TOLERATED WELL, PT IS STABLE, WILL CONTINUE TO MONITOR.
[2020-10-12 12:00] VITALS: BP 85/58
--- NOTE | 2020-10-12 12:53 | NUR ---
ADMINISTERED SCHEDULED MEDICATION, 5 UNITS OF HUMALOG PER BLOOD GLUCOSE OF 214, MEDICATION EDUCATION PROVIDED, PT TOLERATED WELL. PT'S CALLED AND UPDATED HER ON PLAN. PT IS STABLE, WILL CONTINUE TO MONITOR.
[2020-10-12] MEDS: FOAM DRESSING TP SCH (13:00)
[2020-10-12] MEDS: THERAHONEY GEL 42.5 GM TP SCH (14:08)
--- NOTE | 2020-10-12 14:57 | NUR ---
10/12/20 RD FOLLOW UP COMPLETED PLEASE REFER TO NUTRITION ASSESSMENT UNDER CARE ACTIVITY FOR ESTIMATED NUTRITIONAL NEEDS. 1. CONTINUE GLUCERNA 1.2 @ 70 ML/HR X 24 HR -THIS PROVIDES 2016 KCAL AND 101 GM OF PROTEIN. MEETING 100% OF ESTIMATED NEEDS 2. RECOMMEND FREE WATER FLUSH OF 110 ML Q4H 3. RECOMMEND VITAMIN D AND CALCIUM, VITAMIN C 500 MG AND ZINC [address] TO FOLLOW-UP 2-3 DAYS, HIGH RISK ROBBIE BARNARD RD
--- NOTE | 2020-10-12 14:58 | NUR ---
NOTIFIED DR KINGSLEY OF [facility] RECOMMENDS AND RECEIVED TORB FROM DR KINGSLEY FOR VIT C 500 MG BID, ZINC 220MG Q DAILY, CALCIUM/VITAMIN D 500 MG, WILL INPUT ORDER.
[2020-10-12] MEDS ORDERED: VANCOMYCIN PER PHARMACY MC PRN (15:05)
[2020-10-12 16:00] VITALS: BP 106/84
--- NOTE | 2020-10-12 17:11 | NUR ---
PT STATED HE WAS HAVING TROUBLE BREATHING, CALLED RT AND INCREASED HIS OXYGEN TO 7L. PT ENCOURAGE TO COUGH, SATING AT 97%, RT IN ROOM WITH PT.
--- NOTE | 2020-10-12 17:45 | NUR ---
ADMINISTERED SCHEDULED MEDICATION, 3 UNITS OF HUMALOG GIVEN FOR BLOOD GLUCOSE OF 166, MEDICATION EDUCATION PROVIDED, PT TOLERATED WELL, PT IS STABLE, WILL CONTINUE TO MONITOR.
--- NOTE | 2020-10-12 19:10 | NUR ---
ENDORSE PT TO NIGHT NURSE FOR CONTINUITY OF CARE, PT IS STABLE
--- NOTE | 2020-10-12 19:11 | NUR ---
RECEIVED BEDSIDE REPORT FROM AM NURSE. PT IN BED WITH HOB SLIGHTLY ELEVATED. PT AAOX2-3, ABLE TO MAKE NEEDS KNOWN. PT CURRENTLY ON O2 5LPM/NC. PT NOT IN DISTRESS. ABDOMEN DISTENDED. PT NG TUBE IN PLACE WITH CONTINUOUS FEEDING. RECTAL TUBE ALSO IN PLACE. CONDOM CATHETER NOTED, DRAINING WELL. SKIN IS WARM AND DRY. PT WITH SACRAL AND BUTTOCK DTI. PT WITH RIGHT UPPER ARM PICC LINE IN PLACE, IVF INFUSING WELL. PT DENIES ANY PAIN OR DISCOMFORT AT THIS TIME. PT KEPT COMFORTABLE. SAFETY MEASURES IN PLACE. CALL LIGHT WITHIN REACH. WILL CONTINUE TO MONITOR.
[2020-10-12 20:00] VITALS: BP 111/92
[2020-10-12] MEDS: ASCORBIC ACID 500 MG/5 ML ORASYR GT SCH (21:27)
[2020-10-12] MEDS: ATORVASTATIN 20 MG TAB PO SCH (21:27)
--- NOTE | 2020-10-12 21:30 | NUR ---
VS TAKEN, STABLE. 10ML RESIDUAL OBRAINED, CONTINUED WITH SCHEDULED MEDS ORDERED. PT NOT IN DISTRESS. O2 IN PLACE. CONTINUOUS FEEDING IN PLACE. PT TURNED TO SIDE. PT DENIES ANY PAIN OR DISCOMFORT AT THIS TIME. KEPT COMFORTABLE. SAFETY MEASURES IN PLACE. WILL CONTINUE TO MONITOR.
--- NOTE | 2020-10-12 22:26 | NUR ---
PT IN BED WATCHING TV. HOB ELEVATED. O2 IN PLACE. PT NOT IN DISTRESS. O2 SAT 96%. NO COMPLAINTS MADE AT THIS TIME. PT TURNED TO SIDE. SAFETY MEASURES IN PLACE. CALL LIGHT WITHIN REACH. WILL CONTINUE TO MONITOR.
[2020-10-13] VITALS: BP 101/64
[2020-10-13] MEDS: BLOOD GLUCOSE MONITORING 1 DEV DEV FS SCH ×4 (00:06→17:28)
[2020-10-13] MEDS: INSULIN LISPRO SLIDING SCALE 100 UNITS/ML VIAL SUBQ PRN ×3 (00:09→17:56)
--- NOTE | 2020-10-13 00:09 | NUR ---
VS TAKEN. BP 103/64. CARDIZEM HELD. BLOOD SUGAR 194, INSULIN COVERAGE GIVEN ORDERED. PT TURNED TO SIDE. O2 IN PLACE. SAFETY MEASURES IN PLACE. WILL CONTINUE TO MONITOR.
[2020-10-13] MEDS: ACETYLCYSTEINE 10% (100 MG/ML) 100 MG/ML VIAL INH SCH ×4 (01:35→19:17)
[2020-10-13] MEDS: LEVALBUTEROL 1.25 MG/0.5 ML NEBU INH PRN ×4 (01:35→19:18)
--- NOTE | 2020-10-13 02:07 | NUR ---
ROUNDS MADE. PT ASLEEP. O2 IN PLACE. VISIBLE CHEST RISE AND FALL NOTED. PT NOT IN DISTRESS. O2 SAT 95%. PT KEPT COMFORTABLE. SAFETY MEASURES IN PLACE. CALL LIGHT WITHIN REACH. WILL CONTINUE TO MONITOR.
[2020-10-13] MEDS: DEXTROSE 5% 1,000 ML IV SCH ×2 (03:35→20:33)
[2020-10-13] MEDS: Z-GUARD PASTE TP SCH ×2 (03:55→13:56)
[2020-10-13 04:00] VITALS: BP 91/58
--- NOTE | 2020-10-13 04:20 | NUR ---
ROUNDS MADE. PT PULLED OUT NG TUBE. PT NOT IN DISTRESS. WILL CONTINUE TO MONITOR.
[2020-10-13] MEDS: MIDODRINE 5 MG TAB PO SCH ×3 (05:00→20:30)
[2020-10-13] MEDS: DILTIAZEM 30 MG TAB PO SCH ×4 (05:06→18:00)
[2020-10-13] MEDS: bisacodyL 5 MG TABEC PO SCH (05:07)
--- NOTE | 2020-10-13 05:07 | NUR ---
UNABLE TO GIVE 5AM AND 6AM PO MEDICATIONS DUE TO PATIENT PULLING OUT NG TUBE EARLIER. WILL CONTINUE TO MONITOR.
--- NOTE | 2020-10-13 05:15 | NUR ---
BLOOD SUGAR 219. INSULIN COVERAGE NOT GIVEN DUE TO PATIENT HAVING NO MEANS OF RECEIVING FEEDING. WILL CONTINUE TO MONITOR.
--- NOTE | 2020-10-13 07:17 | NUR ---
ENDORSED TO DAY SHIFT NURSE FOR CONTINUITY OF CARE.
--- NOTE | 2020-10-13 07:25 | NUR ---
REC'D BEDSIDE ENDORSEMENT FROM NIGHTSHIFT NURSE. PATIENT IS RESTING IN BED. SAFETY MEASURES IN PLACE. WILL CONT W/ POC.
[2020-10-13 07:43] LABS: BASOPHILS % (AUTO) 0.5 % (0.0-2.0); EOSINOPHILS # (AUTO) 0.2 K/uL (0-0.4); EOSINOPHILS % (AUTO) 3.8 % (0.0-4.0); HEMATOCRIT 25.4 % (36-52); LYMPHOCYTES # (AUTO) 1.2 K/uL (2.0-11.5); LYMPHOCYTES % (AUTO) 24.5 % (20.5-51.1); MEAN CORPUSCULAR HEMOGLOBIN 28 pg (27-31); MEAN CORPUSCULAR HGB CONC 32 g/dL (33-37); MEAN CORPUSCULAR VOLUME 89.6 fL (80-94); MONOCYTES # (AUTO) 0.4 K/uL (0.8-1.0); MONOCYTES % (AUTO) 7.5 % (1.7-9.3); NEUTROPHILS # (AUTO) 3.1 K/uL (1.8-7.7); NEUTROPHILS % (AUTO) 63.7 % (42.2-75.2); PLATELET COUNT (AUTO) 167 K/uL (140-450); RED BLOOD CELL COUNT(AUTO) 2.83 MIL/uL (4.20-6.10); RED CELL DISTRIBUTION WIDTH 17.2 % (11.6-13.7); WHITE BLOOD COUNT (AUTO) 4.9 K/uL (4.8-10.8)
[2020-10-13 07:57] LABS: ANION GAP 15.4 (8-16); CARBON DIOXIDE 23.4 mmol/L (21-32); CHLORIDE 108 mmol/L (98-107); CREATININE 1.7 mg/dL (0.6-1.3); GLUCOSE 220 mg/dL (74-106); POTASSIUM 3.8 mmol/L (3.5-5.1); SODIUM SERUM 143 mmol/L (136-145); UREA NITROGEN, BLOOD 43 mg/dL (7-18)
[2020-10-13 08:00] VITALS: BP 107/75
[2020-10-13] MEDS: ASCORBIC ACID 500 MG/5 ML ORASYR GT SCH ×2 (08:58→20:30)
[2020-10-13] MEDS: DIGOXIN 0.125 MG TAB PO SCH (08:59)
[2020-10-13] MEDS: CALCIUM CARB/VIT-D 500 MG/200 IU 1 TAB PO SCH (09:00)
[2020-10-13] MEDS: MAGNESIUM HYDROXIDE 2400 MG/30 ML UDC PO SCH (09:00)
[2020-10-13] MEDS: ZINC SULF 220 MG CAP PO SCH (09:00)
[2020-10-13] MEDS: GABAPENTIN 300 MG CAP PO SCH (09:00)
[2020-10-13] MEDS: methocarbamoL 500 MG TAB PO SCH ×4 (09:00→20:30)
[2020-10-13] MEDS: FLUDROCORTISONE 0.1 MG TAB NG SCH (09:00)
--- NOTE | 2020-10-13 09:15 | NUR ---
UNABLE TO ADMINISTER SCHED PO MED DUE TO PATIENT PULLING OUT [place] TUBE DURING NIGHTSHIFT. SWALLOW EVAL ORDERED AND AWAITING. WILL CONTINUE TO MONITOR
[2020-10-13] MEDS: PANTOPRAZOLE 40 MG INJ VIAL IVP SCH ×2 (09:24→20:29)
[2020-10-13] MEDS: INSULIN LANTUS 100 UNITS/ML 10 ML VIAL SUBQ SCH ×2 (09:24→20:28)
[2020-10-13] MEDS: VANCOMYCIN 1,500 MG in DEXTROSE 5% 500 ML IV SCH ×2 (11:00→20:32)
--- NOTE | 2020-10-13 11:30 | NUR ---
PT BLOOD SUGAR IS 203. PRN INSULIN WILL BE ADMINISTERED PRESCRIBED PER MD ORDER. WILL CONTINUE TO MONITOR
[2020-10-13 12:00] VITALS: BP 103/76
--- NOTE | 2020-10-13 12:18 | NUR ---
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 PATIENT IS NPO, PENDING SWALLOW EVAL
[2020-10-13] MEDS: THERAHONEY GEL 42.5 GM TP SCH (13:56)
--- NOTE | 2020-10-13 13:57 | NUR ---
UNABLE TO ADMINISTER SCHED PO MED DUE TO PATIENT PULLING OUT [place] TUBE DURING NIGHTSHIFT. SWALLOW EVAL ORDERED AND AWAITING. WILL CONTINUE TO MONITOR
[2020-10-13 16:00] VITALS: BP 103/75
--- NOTE | 2020-10-13 17:30 | NUR ---
PT BLOOD SUGAR IS 169. PRN INSULIN WILL BE ADMINISTERED PRESCRIBED PER MD ORDER. WILL CONTINUE TO MONITOR
--- NOTE | 2020-10-13 17:58 | NUR ---
ADMINISTERED PRN INSULIN PRESCRIBED PER MD ORDER. PT TOLERATED WELL. UNABLE TO ADMINISTER SCHED PO MED DUE TO PATIENT PULLING OUT [place] TUBE DURING NIGHTSHIFT. SWALLOW EVAL ORDERED AND AWAITING. WILL CONTINUE TO MONITOR
[2020-10-13 20:00] VITALS: BP 112/94
--- NOTE | 2020-10-13 20:00 | NUR ---
RECEIVED BEDSIDE REPORT FROM DAY RN FOR CONTINUITY OF CARE. RECEIVED PATIENT ASLEEP DURING ROUNDS. PT AROUSABLE AND NOT IN ANY DISTRESS. NO COMPLAIN AT THIS TIME. IVF INFUSING ORDERED. NPO FOR NOW AWAITING FOR SWALLOW EVAL.VSS, AFEBRILE, SATING 99% ON 4L/NC. AFIB ON COMMUNICATIONS DEPARTMENT HEAD, HR-122. FALL PRECAUTION IMPLEMENTED. BED IN LOW POSITION,SIDE RAILS UP AND BED ALARM ON. REPOSITIONED THE PT FOR COMFORT AND TO PREVENT SKIN BREAKDOWN. CALL LIGHT WITHIN REACH.
[2020-10-13] MEDS: ATORVASTATIN 20 MG TAB PO SCH (20:30)
--- NOTE | 2020-10-13 22:00 | NUR ---
PT NPO AT THIS TIME AWAITING FOR SWALLOW EVAL. HELD ALL PO MEDS SCHEDULED.
[2020-10-14] VITALS: BP 75/45
--- NOTE | 2020-10-14 | NUR ---
PATIENT BP 75/45, HR-91 ,AFEBRILE, SATING 98% ON 4L/NC. 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 WILL MONITOR PT BP.
[2020-10-14] MEDS: Z-GUARD PASTE TP SCH ×2 (00:03→13:15)
[2020-10-14] MEDS: BLOOD GLUCOSE MONITORING 1 DEV DEV FS SCH ×4 (00:04→18:12)
[2020-10-14 01:00] VITALS: BP 89/52
[2020-10-14] MEDS: ACETYLCYSTEINE 10% (100 MG/ML) 100 MG/ML VIAL INH SCH ×4 (01:32→20:16)
[2020-10-14] MEDS: LEVALBUTEROL 1.25 MG/0.5 ML NEBU INH PRN ×2 (01:32→09:46)
--- NOTE | 2020-10-14 02:00 | NUR ---
PATIENT ASLEEP AT THIS TIME. VISIBLE CHEST RISE AND FALL NOTED. SAFETY MEASURES IN PLACED.
[2020-10-14 04:00] VITALS: BP 92/56
--- NOTE | 2020-10-14 04:00 | NUR ---
PATIENT BP 92/56, HR111 ,AFEBRILE, SATING 98% ON 4L/NC. 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 NO COMPLAIN OF PAIN AT THIS TIME.
[2020-10-14] MEDS: MIDODRINE 5 MG TAB PO SCH ×3 (05:00→21:49)
[2020-10-14] MEDS: bisacodyL 5 MG TABEC PO SCH (06:00)
[2020-10-14] MEDS: DILTIAZEM 30 MG TAB PO SCH ×4 (06:00→18:12)
--- NOTE | 2020-10-14 06:19 | NUR ---
PT STABLE. NO ACUTE EVENTS THROUGHOUT THE NIGHT. NO SIGN AND SYMPTOMS OF DISTRESS NOTED AT THIS TIME. NO COMPLAIN OF PAIN. ALL NEEDS ATTENDED. CALL LIGHT WITHIN REACH. WILL ENDORSE THE PT TO THE ONCOMING RN FOR CONTINUITY OF CARE.
[2020-10-14] MEDS: INSULIN LISPRO SLIDING SCALE 100 UNITS/ML VIAL SUBQ PRN ×2 (06:23→12:22)
--- NOTE | 2020-10-14 07:27 | NUR ---
PT STABLE. ENDORSED THE PT TO THE DAY RN LANCE FOR CONTINUITY OF CARE. SIGNING OFF.
[2020-10-14 07:40] LABS: HEMATOCRIT 25.5 % (36-52); HEMOGLOBIN 8.2 g/dL (12.0-18.0); MEAN CORPUSCULAR HEMOGLOBIN 29 pg (27-31); MEAN CORPUSCULAR HGB CONC 32 g/dL (33-37); MEAN CORPUSCULAR VOLUME 88.4 fL (80-94); PLATELET COUNT (AUTO) 162 K/uL (140-450); RED BLOOD CELL COUNT(AUTO) 2.88 MIL/uL (4.20-6.10); RED CELL DISTRIBUTION WIDTH 17.1 % (11.6-13.7); WHITE BLOOD COUNT (AUTO) 4.6 K/uL (4.8-10.8)
[2020-10-14 07:49] LABS: ANION GAP 14.7 (8-16); CARBON DIOXIDE 24.2 mmol/L (21-32); CHLORIDE 109 mmol/L (98-107); CREATININE 1.7 mg/dL (0.6-1.3); GLUCOSE 145 mg/dL (74-106); POTASSIUM 3.9 mmol/L (3.5-5.1); SODIUM SERUM 144 mmol/L (136-145); UREA NITROGEN, BLOOD 37 mg/dL (7-18)
--- NOTE | 2020-10-14 08:00 | NUR ---
PATIENT LAYING IN BED. AOX1. BP IS LOW 86/61. WILL CHECK TO SEE WHAT CAN GIVE PATIENT. PATIENT IS NPO UNTIL SWALLOW EVAL.
[2020-10-14 08:41] LABS: EOSINOPHILS % (MANUAL) 3 % (0-4); LYMPHOCYTES % (MANUAL) 25 % (20-46); MONOCYTES % (MANUAL) 8 % (5-12)
[2020-10-14] MEDS: methocarbamoL 500 MG TAB PO SCH ×4 (09:00→21:49)
[2020-10-14] MEDS: MAGNESIUM HYDROXIDE 2400 MG/30 ML UDC PO SCH (09:00)
[2020-10-14] MEDS: DIGOXIN 0.125 MG TAB PO SCH (09:00)
[2020-10-14] MEDS: GABAPENTIN 300 MG CAP PO SCH (09:00)
[2020-10-14] MEDS: ASCORBIC ACID 500 MG/5 ML ORASYR GT SCH ×3 (09:16→21:47)
[2020-10-14] MEDS: FLUDROCORTISONE 0.1 MG TAB NG SCH (09:17)
--- NOTE | 2020-10-14 09:30 | NUR ---
SPEECH THERAPIST AT BEDSIDE DOING SWALLOW EVAL. TRIED TO GIVE PATIENT IMPORTANT MEDICATIONS. WAS ABLE TO GIVE PATIENT MEDICATION FOR LOW BLOOD PRESSURE DURING SWALLOW EVAL. RECHECKED BP 94/65.
[2020-10-14] MEDS: CALCIUM CARB/VIT-D 500 MG/200 IU 1 TAB PO SCH (09:57)
[2020-10-14] MEDS: ZINC SULF 220 MG CAP PO SCH (09:58)
[2020-10-14] MEDS: PANTOPRAZOLE 40 MG INJ VIAL IVP SCH ×2 (10:07→21:46)
--- NOTE | 2020-10-14 10:10 | NUR ---
POC DISCUSSED WITH DR. KINGSLEY AND LEAN LEADER R/T PT. SKIN FAILURE. PT. SLOW HEALING AND FURTHER SKIN DAMAGE MAY NOTICE WITH POOR NUTRITION INTAKE. POC DISCUSSED PRIMARY RN THAT DR. WILLIAMSON FOR ANOTHER COVID PCR.
[2020-10-14] MEDS: INSULIN LANTUS 100 UNITS/ML 10 ML VIAL SUBQ SCH ×2 (10:14→21:00)
[2020-10-14] MEDS: VANCOMYCIN 1,500 MG in DEXTROSE 5% 500 ML IV SCH (10:17)
--- NOTE | 2020-10-14 10:51 | NUR ---
*ST: Bedside Swallow Re-Evaluation* Swallow re-eval order received. Since last reviewed per ST note 10/09, pt s/p EGD c placement of NJ-tube 10/09. EGD 10/09 - large amount of brownish yellowish greenish purulent secretions in the oropharynx cleared and in the upper esophagus as well; gastritis; persistent gastric ulcer, antral..., duodenitis or compression of the D3, D4 has improved. In summary, GI placed the feeding tube in the distal duodenum (i.e., first part of the small intestine immediately beyond stomach). Per general surgeon note 10/11, recommendation for nasal enteral tube to be converted to a gastrojejunostomy tube (i.e., feeding in jejunostomy limb). Pt pulled out NJ-tube 10/13; hence, swallow re-eval ordered as Pt has been NPO. Cleared with RN, Loreto, for BDSE. Pt seen bedside, on 4L O2 nc, vocal quality much clearer compared to ST note 10/09. Pt does have low bp likely 2/2 to not receiving medications since NJ-tube pulled out yesterday, 10/13. Ice chips x10, thin by 1/2 tsp x15, and apple sauce by 1/2 tsp x10 given. Overall, pt had fair tsp stripping, fair manipulation and clearing, no residue, slight delay swallow trigger, fair laryngeal excursion, no overt coughing nor throat clearing after immediate PO trials. However, pt eventually had delayed non-productive cough with face-reddening ?unsure if 2/2 lower GI issues. Plan of care and recommendations d/w pt, pt's RN, and MD on floor. Pt's oral-pharyngeal swallow appears WFL with Puree/Thin Liquids; however, pt does have delayed cough reflex - unsure if 2/2 lower GI issues as noted per recent surgeon and GI notes above. P: Rec NPO x meds (only ~5x 1/2 tsp at a time), oral care every 2-4 hours Rec 5 ice chips c RN after strict oral care to maintain swallow integrity Rec continue GI/surgeon consult re: pt's lower GI issues -Kaitlyn Mccormack MA, CCC-BOTTLE WASHER Addendum: 10/14/20 at [address] Amended: Links added.
--- NOTE | 2020-10-14 12:40 | NUR ---
DR PINEDA WAS INFORMED THAT PATIENT DID NOT PASS SWALLOW EVAL. WILL WAIT FOR FURTHER ORDERS.
--- NOTE | 2020-10-14 12:50 | NUR ---
PATIENT BP 89/59 AT THIS TIME. PATIENT RESTING IN BED. HR 88, O2 95%. NO S/S OR DISTRESS ARE NOTED AT THIS TIME.
[2020-10-14] MEDS: THERAHONEY GEL 42.5 GM TP SCH (13:14)
--- NOTE | 2020-10-14 13:38 | NUR ---
10/14/20 RD FOLLOW UP COMPLETED PLEASE REFER TO NUTRITION ASSESSMENT UNDER CARE ACTIVITY FOR ESTIMATED NUTRITIONAL NEEDS. 1. CONTINUE NPO AND CONSIDER NEW NJ TUBE PLACEMENT FOR PRIMARY SOURCE OF NUTRITION. TECHNICAL SALES SUPPORT MANAGER RECOMMENDATION FOR NPO 2. WHEN NEW NJ TUBE IS PLACED CONTINUE GLUCERNA 1.2 @ 70 ML/HR X 24 HR -THIS PROVIDES 2016 KCAL AND 101 GM OF PROTEIN. MEETING 100% OF ESTIMATED NEEDS 3. RECOMMEND FREE WATER FLUSH OF 110 ML Q4H 4. RECOMMEND VITAMIN D AND CALCIUM, VITAMIN C 500 MG AND ZINC [address] TO FOLLOW-UP 2-3 DAYS, HIGH RISK ROBBIE BARNARD RD
--- NOTE | 2020-10-14 14:30 | NUR ---
PER DR ORDER PATIENT WILL GO BACK TO TPN 1500 CALORIES.
--- NOTE | 2020-10-14 15:00 | NUR ---
PHARMACY CALLED, TPN WONT BE READY UNTIL TOMORROW.
[2020-10-14] MEDS ORDERED: TPN PER PHARMACY MC PRN (16:15)
--- NOTE | 2020-10-14 18:30 | NUR ---
PATIENT VITALS ARE STABLE, BLOOD PRESSURE HAS BEEN KEPT AT A NORMAL LEVEL 91/56. MEDICATIONS THAT WOULD DECREASE PATIENTS BLOOD PRESSURE WERE HELD. COVID PCR TEST WAS COMPLETED AND SENT TO LAB. NO PAIN OR DISCOMFORT. WILL ENDORSE REPORT NIGHTSHIFT.
[2020-10-14 18:46] VITALS: BP 94/65
[2020-10-14] MEDS ORDERED: ACETYLCYSTEINE 10% (100 MG/ML) 100 MG/ML VIAL ONE (19:11)
[2020-10-14] MEDS: DEXTROSE 5% 1,000 ML IV SCH (19:35)
--- NOTE | 2020-10-14 19:45 | NUR ---
RECEIVED BEDSIDE REPORT FROM DAY RN FOR CONTINUITY OF CARE. RECEIVED PATIENT AWAKE AND WATCHING TV DURING ROUNDS. NOT IN ANY DISTRESS. NO COMPLAIN AT THIS TIME. IVF INFUSING ORDERED. NPO FOR NOW PT DIDN'T PASS HIS SWALLOW EVAL. WILL START TPN TOMORROW PER DAY RN REPORT AND STATED THAT TPN HAS TO BE ORDER PER PHARMACY. VSS, AFEBRILE, SATING 96% ON 4L/NC. AFIB ON MEAT PRESS OPERATOR, HR-105. FALL AND ASPIRATION PRECAUTION IMPLEMENTED. BED IN LOW POSITION,SIDE RAILS UP AND BED ALARM ON. HOB ELEVATED. REPOSITIONED THE PT FOR COMFORT AND TO PREVENT SKIN BREAKDOWN. CALL LIGHT WITHIN REACH. WILL CONTINUE POC AND MONITORING.
[2020-10-14 20:00] VITALS: BP 91/55
--- NOTE | 2020-10-14 20:16 | NUR ---
UNABLE TO ADMINISTER TX. DUE TO RT UNAVAILABLE. WILL CONT TO MONITOR
--- NOTE | 2020-10-14 20:24 | NUR ---
PATENT CHECKED. ON 4L NC. VITAL SIGNS STABLE. PATIENT ALERT AND ORIENTED. WILL CONT TO MONITOR
[2020-10-14] MEDS: ATORVASTATIN 20 MG TAB PO SCH (21:48)
--- NOTE | 2020-10-14 22:00 | NUR ---
ADMINISTERED ALL THE SCHEDULED MEDICATIONS EXCEPT FOR THE CARDIZEM DUE TO PT BP IN THE LOW SIDE. PT TOLERATED IT WELL. NO ADVERSE DRUG REACTION NOTED. SPOKE WITH THE PT MELANI AND UPDATED HER WITH THE PT CONDITION AND POC.
[2020-10-15] VITALS: BP 90/57
--- NOTE | 2020-10-15 | NUR ---
PATIENT VITAL SIGNS STABLE,AFEBRILE, SATING 96% ON 4L/NC. AFIB ON FISHER SWORDFISH, HR-100.NO COMPLAIN OF PAIN AT THIS TIME.
[2020-10-15] MEDS: ACETYLCYSTEINE 10% (100 MG/ML) 100 MG/ML VIAL INH SCH ×4 (01:00→20:18)
[2020-10-15] MEDS: Z-GUARD PASTE TP SCH ×2 (01:03→13:54)
--- NOTE | 2020-10-15 01:57 | NUR ---
NO MM GIVEN. PATIENT IS ASLEEP. REMAINS ON 4LNC. NO DISTRESS SEEN. WILL CONT TO MONITOR
--- NOTE | 2020-10-15 02:00 | NUR ---
PT SLEEPS OFF AND ON. NOT IN ANY DISTRESS.WILL CONTINUE TO MONITOR.
[2020-10-15 04:00] VITALS: BP 94/48
--- NOTE | 2020-10-15 04:00 | NUR ---
PATIENT VITAL SIGNS STABLE,AFEBRILE, SATING 97% ON 4L/NC.NO COMPLAIN OF PAIN AT THIS TIME.
[2020-10-15] MEDS: BLOOD GLUCOSE MONITORING 1 DEV DEV FS SCH ×4 (05:37→17:48)
[2020-10-15] MEDS: MIDODRINE 5 MG TAB PO SCH ×3 (05:37→21:04)
[2020-10-15] MEDS: bisacodyL 5 MG TABEC PO SCH (05:38)
[2020-10-15] MEDS: DILTIAZEM 30 MG TAB PO SCH ×4 (05:38→17:37)
--- NOTE | 2020-10-15 07:05 | NUR ---
RECEIVED PATIENT FROM NIGHT NURSE. PATIENT IN BED SLEEPING, EASILY AROUSBLE TO AWAKE AND ALERT. RESPONDING TO NAME. RESP EVEN AND UNLABORED ON 4LNC. DENIED OF PAIN AT THIS TIME. BARB PICC NOTED, INFUSING D5 50ML/HR. RECTAL TUBE IN PLACE. PLAN OF CARE DISCUSSED WITH PATIENT. PATIENT VERBALIZED UNDERSTANDING. SAFETY MEASURES IN PLACE. CALL LIGHT WITHIN REACH. WILL CONTINUE TO MONITOR.
[2020-10-15] MEDS: LEVALBUTEROL 1.25 MG/0.5 ML NEBU INH PRN ×3 (07:25→20:18)
--- NOTE | 2020-10-15 07:25 | NUR ---
ASLEEP EASILY AWAKENS STRONG NPC DURING HHN THERAPY SATURATION 98% ON SUPPLEMENTAL OXYGEN AT 4 LPM VIA NC POST HHN THERAPY TITRATED FIO2 TO 3 LPM SELIN/RN NOTIFIED
[2020-10-15 08:00] VITALS: BP 85/64
[2020-10-15] MEDS: DIGOXIN 0.125 MG TAB PO SCH (09:00)
[2020-10-15 09:11] LABS: BASOPHILS % (AUTO) 0.7 % (0.0-2.0); EOSINOPHILS # (AUTO) 0.1 K/uL (0-0.4); EOSINOPHILS % (AUTO) 2.8 % (0.0-4.0); HEMOGLOBIN 8.8 g/dL (12.0-18.0); LYMPHOCYTES # (AUTO) 1.4 K/uL (2.0-11.5); LYMPHOCYTES % (AUTO) 27.1 % (20.5-51.1); MEAN CORPUSCULAR HEMOGLOBIN 28 pg (27-31); MEAN CORPUSCULAR HGB CONC 32 g/dL (33-37); MEAN CORPUSCULAR VOLUME 89.1 fL (80-94); MONOCYTES # (AUTO) 0.4 K/uL (0.8-1.0); MONOCYTES % (AUTO) 6.9 % (1.7-9.3); NEUTROPHILS # (AUTO) 3.2 K/uL (1.8-7.7); NEUTROPHILS % (AUTO) 62.5 % (42.2-75.2); PLATELET COUNT (AUTO) 180 K/uL (140-450); RED BLOOD CELL COUNT(AUTO) 3.14 MIL/uL (4.20-6.10); RED CELL DISTRIBUTION WIDTH 17.1 % (11.6-13.7); WHITE BLOOD COUNT (AUTO) 5.1 K/uL (4.8-10.8)
[2020-10-15 09:22] LABS: ANION GAP 15.4 (8-16); CARBON DIOXIDE 24.7 mmol/L (21-32); CHLORIDE 110 mmol/L (98-107); CREATININE 1.8 mg/dL (0.6-1.3); GLUCOSE 124 mg/dL (74-106); POTASSIUM 4.1 mmol/L (3.5-5.1); SODIUM SERUM 146 mmol/L (136-145); UREA NITROGEN, BLOOD 36 mg/dL (7-18)
[2020-10-15 09:27] LABS: MAGNESIUM 2.4 mg/dL (1.8-2.4); PHOSPHORUS 5.2 mg/dL (2.5-4.9)
[2020-10-15] MEDS: ZINC SULF 220 MG CAP PO SCH (10:08)
[2020-10-15] MEDS: FLUDROCORTISONE 0.1 MG TAB NG SCH (10:09)
[2020-10-15] MEDS: CALCIUM CARB/VIT-D 500 MG/200 IU 1 TAB PO SCH (10:09)
[2020-10-15] MEDS: GABAPENTIN 300 MG CAP PO SCH (10:09)
[2020-10-15] MEDS: methocarbamoL 500 MG TAB PO SCH ×4 (10:10→21:04)
[2020-10-15] MEDS: MAGNESIUM HYDROXIDE 2400 MG/30 ML UDC PO SCH (10:11)
[2020-10-15] MEDS: PANTOPRAZOLE 40 MG INJ VIAL IVP SCH ×2 (10:11→21:02)
[2020-10-15] MEDS: INSULIN LANTUS 100 UNITS/ML 10 ML VIAL SUBQ SCH ×2 (10:13→21:00)
--- NOTE | 2020-10-15 10:15 | NUR ---
MORNING ROUTINE MEDICATIONS GIVEN, CRUSHED WITH APPLESAUCE. PATIENT TOLERATED WELL. PATIENT AWAKE AND ALERT, ORIENTED X2. RESP EVEN AND UNLABORED ON 3L NC. DENIED OF PAIN AT THIS TIME. PATIENT ABLE TO MAKE NEEDS KNOWN. LUNGS CLEAR. LOWER LEGS NOTED WITH PITTING EDEMA +2, RAISED ON PILLOWS WITH HEEL PROTECTORS ON. BARB PICC INTACT AND PATENT INFUSING D5% 50ML/HR. PLAN OF CARE DISCUSSED WITH PATIENT. PATIENT VERBALIZED UNDERSTANDING. CALL LIGHT WITHIN REACH. WILL CONTINUE TO MONITOR
[2020-10-15] MEDS: METOCLOPRAMIDE 10 MG/2 ML INJ VIAL IVP SCH ×3 (11:21→17:36)
[2020-10-15] MEDS: VANCOMYCIN 1,500 MG in DEXTROSE 5% 500 ML IV SCH (11:25)
[2020-10-15 12:00] VITALS: BP 77/52
--- NOTE | 2020-10-15 12:05 | NUR ---
PATIENT TURNED AND REPOSITIONED. PERSONAL CARE RENDERED. PATIENT TOLERATED WELL. NO NOTED DISTRESS AT THIS TIME. CALL LIGHT WITHIN REACH. WILL CONTINUE TO MONITOR.
[2020-10-15] MEDS ORDERED: TPN PER PHARMACY MC PRN (12:30)
--- NOTE | 2020-10-15 12:35 | NUR ---
MARTINM HELD D/T LOW PARAMETERS.
--- NOTE | 2020-10-15 13:12 | NUR ---
STRONG NPC DURING HHN THERAPY SATURATION 97% ON SUPPLEMENTAL OXYGEN AT 3 LPM VIA NC POST HHN THERAPY TITRATED FIO2 TO 2 LPM SELIN/SONIA NOTIFIED
[2020-10-15] MEDS: THERAHONEY GEL 42.5 GM TP SCH (13:54)
[2020-10-15] MEDS: FOAM DRESSING TP SCH (14:11)
--- NOTE | 2020-10-15 14:30 | NUR ---
PATIENT WAS GIVEN APPLESAUCE AND JELLO. PATIENT TOLERATED WELL. RESP EVEN AND UNLABORED ON 2L NC, O2SAT 97%. DENIED OF PAIN. PATIENT ALERT AND AWAKE. ABLE TO MAKE NEEDS KNOWN. FAMILY BY WINDOW. CALL LIGHT WITHIN REACH. WILL CONTINUE TO MONITOR.
[2020-10-15] MEDS: DEXTROSE 5% 1,000 ML IV SCH (15:35)
[2020-10-15 16:00] VITALS: BP 85/53
--- NOTE | 2020-10-15 17:00 | NUR ---
PATIENT DESAT TO 80% ON 2LNC. OXYGEN INCREASED TO 6L NC. PATIENT TOLERATING BETTER, O2SAT 93%. NO NOTED DISTRESS AT THIS TIME. DENIED OF PAIN. CALL LIGHT WITHIN REACH. WILL CONTINUE TO MONITOR.
[2020-10-15] MEDS: INSULIN LISPRO SLIDING SCALE 100 UNITS/ML VIAL SUBQ PRN (17:49)
--- NOTE | 2020-10-15 17:50 | NUR ---
BLOOD GLUCOSE 153. INSULIN PROVIDED PER SLIDING SCALE. PATIENT IN BED SLEEPING. PATIENT IS A MOUTH BREATHER AND THAT CAUSE HIS OXYGENATION TO DESAT. PATIENT IS EASILY AROUSABLE TO AWAKE. ENCOURAGED TO BREATHING IN THROUGH HIS NOSE. 6L NC AT THIS TIME O2SAT 96%. PATIENT ABLE TO FOLLOW COMMAND. DENIED OF PAIN AT THIS TIME. EDWAR HELD D/T LOW B/P. CALL LIGHT WITHIN REACH. WILL CONTINUE TO MONITOR.
--- NOTE | 2020-10-15 19:01 | NUR ---
PATIENT WAS FED DINNER OF CHICKEN BROTH AND JELLO AND ICE SCREAM. PATIENT TOLERATED 30% OF HIS MEAL AND WANTED TO GO SLEEP. PATIENT TOOK SLOW SWALLOWS AND TOLERATED WELL.
--- NOTE | 2020-10-15 19:17 | NUR ---
ENDORSED PATIENT TO NIGHT NURSE. PATIENT IN STABLE CONDITION.
--- NOTE | 2020-10-15 19:18 | NUR ---
RECEIVED BEDSIDE ENDORSEMENT FROM AM SHIFT RN. PT IS ON FOWLERS POSITION, EYES CLOSE, AROUSABLE TO VERBAL, NO PAIN NOTED, NO SOB, ON 6L NC, O2 SAT WNL, BARB PICC, INTACT, W/ RECTAL TUBE IN PLACE, SAFETY MEASURES IN PLACE, FALL PROTOCOL IN PLACE, PLAN OF CARE DISCUSSED, CALL LIGHT WITHIN REACH.
[2020-10-15 20:00] VITALS: BP 96/57
[2020-10-15] MEDS ORDERED: MULTIVITAMIN IV SCH ×4 (20:00)
[2020-10-15] MEDS ORDERED: DEXTROSE IV SCH ×4 (20:00)
[2020-10-15] MEDS ORDERED: [UNRECOGNIZED DRUG - OTHER] IV SCH ×4 (20:00)
[2020-10-15] MEDS ORDERED: AMINO ACIDS IV SCH ×4 (20:00)
[2020-10-15] MEDS: ASCORBIC ACID 500 MG/5 ML ORASYR GT SCH (21:02)
[2020-10-15] MEDS: ATORVASTATIN 20 MG TAB PO SCH (21:03)
--- NOTE | 2020-10-15 21:42 | NUR ---
DUE MEDS GIVEN ORDERED, TOLERATED WELL, BLOOD SUGAR 112. LANTUS NOT GIVEN.
[2020-10-16] VITALS: BP 87/49
--- NOTE | 2020-10-16 | NUR ---
V/S TAKEN, REPOSITIONED, KEPT CLEAN AND DRY.
[2020-10-16] MEDS: METOCLOPRAMIDE 10 MG/2 ML INJ VIAL IVP SCH ×5 (00:59→23:42)
[2020-10-16] MEDS: BLOOD GLUCOSE MONITORING 1 DEV DEV FS SCH ×5 (00:59→23:41)
[2020-10-16] MEDS: Z-GUARD PASTE TP SCH ×2 (01:11→13:03)
[2020-10-16] MEDS: ACETYLCYSTEINE 10% (100 MG/ML) 100 MG/ML VIAL INH SCH ×4 (01:15→19:00)
[2020-10-16] MEDS: LEVALBUTEROL 1.25 MG/0.5 ML NEBU INH PRN ×3 (01:15→14:07)
--- NOTE | 2020-10-16 03:00 | NUR ---
PT IS ASLEEP, RESPIRATION EVEN AND UNLABORED.
[2020-10-16 04:00] VITALS: BP 82/52
[2020-10-16] MEDS: MIDODRINE 5 MG TAB PO SCH ×3 (04:53→20:27)
[2020-10-16] MEDS: DILTIAZEM 30 MG TAB PO SCH ×5 (05:00→23:41)
[2020-10-16] MEDS: bisacodyL 5 MG TABEC PO SCH (05:01)
[2020-10-16 06:24] LABS: BASOPHILS % (AUTO) 0.5 % (0.0-2.0); EOSINOPHILS # (AUTO) 0.1 K/uL (0-0.4); HEMATOCRIT 25.9 % (36-52); HEMOGLOBIN 8.4 g/dL (12.0-18.0); LYMPHOCYTES # (AUTO) 1.8 K/uL (2.0-11.5); LYMPHOCYTES % (AUTO) 26.2 % (20.5-51.1); MEAN CORPUSCULAR HEMOGLOBIN 29 pg (27-31); MEAN CORPUSCULAR HGB CONC 32 g/dL (33-37); MEAN CORPUSCULAR VOLUME 88.4 fL (80-94); MONOCYTES # (AUTO) 0.6 K/uL (0.8-1.0); MONOCYTES % (AUTO) 8.3 % (1.7-9.3); NEUTROPHILS # (AUTO) 4.4 K/uL (1.8-7.7); PLATELET COUNT (AUTO) 177 K/uL (140-450); RED BLOOD CELL COUNT(AUTO) 2.93 MIL/uL (4.20-6.10); RED CELL DISTRIBUTION WIDTH 17.3 % (11.6-13.7); WHITE BLOOD COUNT (AUTO) 6.9 K/uL (4.8-10.8)
--- NOTE | 2020-10-16 07:15 | NUR ---
PT IS STABLE. ENDORSED TO AM SHIFT RN.
--- NOTE | 2020-10-16 07:17 | NUR ---
REC'D BEDSIDE ENDORSEMENT FROM NIGHTSHIFT NURSE. PATIENT IS STABLE. SAFETY MEASURES IN PLACE. WILL CONT W/ CONTINUITY OF CARE.
[2020-10-16 07:23] LABS: ANION GAP 15.9 (8-16); CARBON DIOXIDE 22.1 mmol/L (21-32); CHLORIDE 108 mmol/L (98-107); CREATININE 1.9 mg/dL (0.6-1.3); GLUCOSE 194 mg/dL (74-106); SODIUM SERUM 142 mmol/L (136-145)
[2020-10-16] MEDS ORDERED: MIDAZOLAM 2 MG/2 ML VIAL ONE (07:47)
[2020-10-16] MEDS ORDERED: diphenhydrAMINE 50 MG/ML VIAL ONE (07:47)
[2020-10-16] MEDS ORDERED: fentaNYL citrate 0.05 MG/ML VIAL ONE (07:47)
[2020-10-16 08:00] VITALS: BP 95/78
[2020-10-16 08:11] LABS: UREA NITROGEN, BLOOD 36 mg/dL (7-18)
[2020-10-16] MEDS: ASCORBIC ACID 500 MG/5 ML ORASYR GT SCH ×2 (08:43→20:27)
[2020-10-16] MEDS: FLUDROCORTISONE 0.1 MG TAB NG SCH (08:44)
[2020-10-16] MEDS: DIGOXIN 0.125 MG TAB PO SCH (08:44)
[2020-10-16] MEDS: GABAPENTIN 300 MG CAP PO SCH (08:45)
[2020-10-16] MEDS: ZINC SULF 220 MG CAP PO SCH (08:46)
[2020-10-16] MEDS: methocarbamoL 500 MG TAB PO SCH (08:46)
[2020-10-16] MEDS: CALCIUM CARB/VIT-D 500 MG/200 IU 1 TAB PO SCH (08:46)
[2020-10-16] MEDS: MAGNESIUM HYDROXIDE 2400 MG/30 ML UDC PO SCH (08:46)
[2020-10-16] MEDS: INSULIN LANTUS 100 UNITS/ML 10 ML VIAL SUBQ SCH ×2 (09:16→20:28)
--- NOTE | 2020-10-16 09:35 | NUR ---
ADMINISTERED PRESCRIBED MEDS PER MD ORDER. PATIENT TOLERATED ADMINISTRATION CRUSHED PO W/ PUDDING. EDUCATION REINFORCEMENT NEEDED. SAFETY MEASURES IN PLACE. WILL CONT TO MONITOR.
[2020-10-16] MEDS: DEXTROSE 5% 1,000 ML IV SCH (10:51)
--- NOTE | 2020-10-16 10:52 | NUR ---
PERFORMED HOURLY ROUNDING. PATIENT IS SLEEPING. NO SIGNS OF DISTRESS. SAFETY MEASURES IN PLACE. WILL CONT TO MONITOR.
[2020-10-16 12:00] VITALS: BP 100/65
--- NOTE | 2020-10-16 12:15 | NUR ---
PT TOLERATING ORAL INTAKE. NO SIGNS OF DISTRESS NOTED WHEN ON FULL LIQUID DIET. SAFETY MEASURES IN PLACE. WILL CONTINUE TO MONITOR
--- NOTE | 2020-10-16 13:01 | NUR ---
10/16/20 RD FOLLOW UP COMPLETED PLEASE REFER TO NUTRITION ASSESSMENT UNDER CARE ACTIVITY FOR ESTIMATED NUTRITIONAL NEEDS. 1 .CONTINUE FULL LIQUID DIET TOLERATED 2. RECOMMEND GLUCERNA TID 3. RECOMMEND DESOLDERER REASSESS FOR APPROPRIATE TEXTURE TOLERANCE 4. WHEN/IF MEDICALLY APPORPRIATE CONSIDER ADVANCING DIET TO PUREE 5. CONTINUE VITAMIN D AND CALCIUM, VITAMIN C 500 MG AND ZINC [address] TO FOLLOW-UP 2-3 DAYS, HIGH RISK ALBERTINA RUDD RD
[2020-10-16] MEDS: THERAHONEY GEL 42.5 GM TP SCH (13:03)
[2020-10-16] MEDS: INSULIN LISPRO SLIDING SCALE 100 UNITS/ML VIAL SUBQ PRN (13:09)
--- NOTE | 2020-10-16 13:10 | NUR ---
ADMINISTERED PRESCRIBED MEDS PER MD ORDER. PATIENT TOLERATED WELL. EDUCATION REINFORCEMENT NEEDED. SAFETY MEASURES IN PLACE. WILL CONT TO MONITOR.
--- NOTE | 2020-10-16 14:58 | NUR ---
HOURLY ROUNDS PERFORMED. PATIENT TOILETED AND TURNED BY CAR VARNISHER AND NURSE. PATIENT IS SLIGHTLY AGITATED, DIDNT WANT TO BE CHANGED/TURNED. SAFETY MEASURES IN PLACE. WILL CONT TO MONITOR.
--- NOTE | 2020-10-16 15:33 | NUR ---
PATIENT HAS EMPTY RECTAL TUBE BAG. NO SIGNS OF DIARRHEA W/IN THE LAST 24 HOURS. REMOVED PATIENT'S RECTAL TUBE. PATIENT TOLERATED WELL. SAFETY MEASURES IN PLACE. WILL CONT TO MONITOR.
[2020-10-16 16:00] VITALS: BP 85/56
[2020-10-16] MEDS: LANSOPRAZOLE 30 MG CAPDR PO SCH (16:30)
--- NOTE | 2020-10-16 17:46 | NUR ---
ADMINISTERED PRESCRIBED MEDS PER MD ORDER. PATIENT TOLERATED WELL. MEDICATION EDUCATION REINFORCEMENT NEEDED. SAFETY MEASURES IN PLACE. WILL CONT TO MONITOR.
--- NOTE | 2020-10-16 19:17 | NUR ---
ENDORSED PATIENT TO NIGHTSHIFT NURSE. PATIENT IS STABLE.
--- NOTE | 2020-10-16 19:18 | NUR ---
RECEIVED REPORT FROM DAY SHIFT NURSE. PT IN BED WITH HOB ELEVATED. PT AWAKE, WITH MOMENTS OF CONFUSION, FOLLOWS COMMANDS. RESPIRATIONS ARE EVEN AND UNLABORED TO O2 4LPM/NC. PT NOT IN DISTRESS. ABDOMEN IS SOFT AND NON-TENDER. BOWEL SOUNDS PRESENT ON ALL QUADRANTS. SKIN IS WARM AND DRY. PT NOTED TO HAVE PITTING BLE EDEMA +1. PT ALSO WITH OPEN WOUND ON BUTTOCKS. PT WITH R UPPER ARM PICC LINE IN PLACE, IVF INFUSING WELL. PT DENIES ANY PAIN OR DISCOMFORT AT THIS TIME. NO REQUESTS MADE. PT KEPT COMFORTABLE. SAFETY MEASURES IN PLACE. CALL LIGHT WITHIN REACH. WILL CONTINUE TO MONITOR.
[2020-10-16 20:00] VITALS: BP 81/61
[2020-10-16] MEDS: ATORVASTATIN 20 MG TAB PO SCH (20:27)
--- NOTE | 2020-10-16 20:28 | NUR ---
VS TAKEN. SCHEDULED MEDS GIVEN ORDERED. PT TOLERATED MEDS, NO ASPIRATION NOTED. O2 IN PLACE. PT NOT IN DISTRESS. PT TURNED TO SIDE. SAFETY MEASURES IN PLACE. CALL LIGHT WITHIN REACH. WILL CONTINUE TO MONITOR.
--- NOTE | 2020-10-16 22:15 | NUR ---
ROUNDS MADE. PT IN BED RESTING WITH HOB ELEVATED. O2 IN PLACE. PT NOT IN DISTRESS. OFFERED SOME WATER. PT ABLE TO DRINK. PT TURNED TO SIDE. PT DENIES ANY PAIN OR DISCOMFORT AT THIS TIME. SAFETY MEASURES IN PLACE. CALL LIGHT WITHIN REACH. WILL CONTINUE TO MONITOR.
--- NOTE | 2020-10-16 23:45 | NUR ---
VS TAKEN. BP 81/57 SCHEDULED CARDIZEM NOT GIVEN. PT TURNED TO SIDE. OFFERED WATER TO DRINK. PT KEPT COMFORTABLE. NO REQUESTS MADE AT THIS TIME. SAFETY MEASURES IN PLACE. CALL LIGHT WITHIN REACH. WILL CONTINUE TO MONITOR.
[2020-10-17] VITALS: BP 89/47
[2020-10-17] MEDS: ACETYLCYSTEINE 10% (100 MG/ML) 100 MG/ML VIAL INH SCH ×2 (00:38→07:27)
[2020-10-17] MEDS: LEVALBUTEROL 1.25 MG/0.5 ML NEBU INH PRN ×2 (00:38→07:27)
[2020-10-17] MEDS: Z-GUARD PASTE TP SCH (00:46)
--- NOTE | 2020-10-17 02:09 | NUR ---
ROUNDS MADE. PT SLEEPING IN BED. O2 IN PLACE. PT NOT IN DISTRESS. VISIBLE CHEST RISE AND FALL NOTED. PT TURNED TO SIDE. SAFETY MEASURES IN PLACE. CALL LIGHT WITHIN REACH. WILL CONTINUE TO MONITOR.
[2020-10-17 04:00] VITALS: BP 79/60
--- NOTE | 2020-10-17 04:12 | NUR ---
VITAL SIGNS STABLE. O2 IN PLACE. PT NOT IN DISTRESS. PERINEAL CARE DONE WITH TURN DOWN ATTENDANT. WOUND CARE DONE WELL. PT TOLERATED CARE PROVIDED. PT TURNED TO SIDE. SAFETY MEASURES IN PLACE. CALL LIGHT WITHIN REACH. WILL CONTINUE TO MONITOR.
[2020-10-17] MEDS: MIDODRINE 5 MG TAB PO SCH (05:29)
[2020-10-17] MEDS: DILTIAZEM 30 MG TAB PO SCH (06:00)
[2020-10-17] MEDS: BLOOD GLUCOSE MONITORING 1 DEV DEV FS SCH (06:06)
[2020-10-17] MEDS: METOCLOPRAMIDE 10 MG/2 ML INJ VIAL IVP SCH (06:17)
[2020-10-17] MEDS: bisacodyL 5 MG TABEC PO SCH (06:17)
[2020-10-17] MEDS: INSULIN LISPRO SLIDING SCALE 100 UNITS/ML VIAL SUBQ PRN (06:27)
--- NOTE | 2020-10-17 06:28 | NUR ---
BLOOD SUGAR 154. INSULIN COVERAGE GIVEN ORDERED. WILL CONTINUE TO MONITOR.
[2020-10-17] MEDS: LANSOPRAZOLE 30 MG CAPDR PO SCH (06:51)
[2020-10-17 06:52] LABS: BASOPHILS % (AUTO) 0.6 % (0.0-2.0); EOSINOPHILS # (AUTO) 0.1 K/uL (0-0.4); EOSINOPHILS % (AUTO) 1.5 % (0.0-4.0); HEMATOCRIT 25.5 % (36-52); HEMOGLOBIN 8.1 g/dL (12.0-18.0); LYMPHOCYTES # (AUTO) 2.5 K/uL (2.0-11.5); LYMPHOCYTES % (AUTO) 28.2 % (20.5-51.1); MEAN CORPUSCULAR HEMOGLOBIN 28 pg (27-31); MEAN CORPUSCULAR HGB CONC 32 g/dL (33-37); MEAN CORPUSCULAR VOLUME 87.6 fL (80-94); MONOCYTES # (AUTO) 0.6 K/uL (0.8-1.0); MONOCYTES % (AUTO) 7.1 % (1.7-9.3); NEUTROPHILS # (AUTO) 5.4 K/uL (1.8-7.7); NEUTROPHILS % (AUTO) 62.6 % (42.2-75.2); PLATELET COUNT (AUTO) 168 K/uL (140-450); RED BLOOD CELL COUNT(AUTO) 2.91 MIL/uL (4.20-6.10); RED CELL DISTRIBUTION WIDTH 17.1 % (11.6-13.7); WHITE BLOOD COUNT (AUTO) 8.7 K/uL (4.8-10.8)
[2020-10-17 07:14] LABS: ANION GAP 14.8 (8-16); CARBON DIOXIDE 24.5 mmol/L (21-32); CHLORIDE 109 mmol/L (98-107); CREATININE 2.1 mg/dL (0.6-1.3); GLUCOSE 160 mg/dL (74-106); POTASSIUM 4.3 mmol/L (3.5-5.1); SODIUM SERUM 144 mmol/L (136-145); UREA NITROGEN, BLOOD 38 mg/dL (7-18)
[2020-10-17] MEDS: DEXTROSE 5% 1,000 ML IV SCH (07:43)
[2020-10-17 07:59] VITALS: BP_SYST 151; BP_SYST 81; BP_DIAS 58; BP_DIAS 98
[2020-10-17 08:00] VITALS: BP 136/66
--- NOTE | 2020-10-17 08:03 | NUR ---
CALLED [facility] @ [phone] AND SPOKE TO SEFERINO HE SAID TO CALL ANOTHER NUMBER [phone] AND SPOKE TO ISAC SHE SAID TO CALL BACK AFTER 15 MINUTES. WILL FOLLOW UP.
--- NOTE | 2020-10-17 08:40 | NUR ---
VS STABLE. SCHEDULED MEDS GIVEN ORDERED. O2 IN PLACE. PT NOT IN DISTRESS. PT FED BREAKFAST. ABLE TO TOLERATE WELL. PT DENIES ANY PAIN OR DISCOMFORT AT THIS TIME. PT TURNED TO SIDE. SAFETY MEASURES IN PLACE. CALL LIGHT WITHIN REACH. WILL CONTINUE TO MONITOR.
[2020-10-17] MEDS: ASCORBIC ACID 500 MG/5 ML ORASYR GT SCH (09:22)
[2020-10-17] MEDS: FLUDROCORTISONE 0.1 MG TAB NG SCH (09:23)
[2020-10-17] MEDS: MAGNESIUM HYDROXIDE 2400 MG/30 ML UDC PO SCH (09:23)
[2020-10-17] MEDS: CALCIUM CARB/VIT-D 500 MG/200 IU 1 TAB PO SCH (09:24)
[2020-10-17] MEDS: ZINC SULF 220 MG CAP PO SCH (09:24)
[2020-10-17] MEDS: GABAPENTIN 300 MG CAP PO SCH (09:24)
[2020-10-17] MEDS: INSULIN LANTUS 100 UNITS/ML 10 ML VIAL SUBQ SCH (09:25)
[2020-10-17] MEDS: DIGOXIN 0.125 MG TAB PO SCH (09:41)
--- NOTE | 2020-10-17 10:00 | NUR ---
CALLED [facility] AND GAVE REPORT TO STEPHANIE. CURRENTLY AWAITING FOR TRANSPORT.
--- NOTE | 2020-10-17 10:30 | NUR ---
BED BATH AND PERINEAL CARE DONE WITH RESTAURANT SERVICE MANAGER. PT NOT IN DISTRESS. PT ABLE TO TOLERATE CARE PROVIDED. SAFETY MEASURES IN PLACE. CALL LIGHT WITHIN REACH. WILL CONTINUE TO MONITOR.
[2020-10-17] MEDS ORDERED: METO-486 PO (10:37)
[2020-10-17] MEDS ORDERED: RIVA20TA PO (10:37)
--- NOTE | 2020-10-17 11:30 | NUR ---
TRANSPORT CREW ARRIVED. PT IN STABLE CONDITION. O2 IN PLACE. PICC LINE REMOVED, ID BAND REMOVED. PT BELONGINGS AND PAPERWORK AT HAND. PT WHEELED OUT BY TRANSPORT CREW VIA CANDIDACARMEN. Addendum: 10/17/20 at 1219 by Kamran Bella RN DISCHARGE TEACHINGS GIVEN. REINFORCEMENT NEEDED
== END 2020-10-17 11:35 | DRG 380 ==
LOC: MED 09:00 → MIC 12:24 → MTU 09-28 23:15
PROVIDERS: ADMIT Hospitalist; ATTEND Hospitalist
PROC: 0D9670Z Drainage of Stomach with Drainage Device, Via Natural or Artificial Opening (ICD-10-PCS; 2020-09-26)
PROC: 0DJ08ZZ Inspection of Upper Intestinal Tract, Via Natural or Artificial Opening Endoscopic (ICD-10-PCS; principal; 2020-09-27)
PROC: 02HV33Z Insertion of Infusion Device into Superior Vena Cava, Percutaneous Approach (ICD-10-PCS; 2020-10-02)
PROC: B548ZZA Ultrasonography of Superior Vena Cava, Guidance (ICD-10-PCS; 2020-10-02)
PROC: 3E0436Z Introduction of Nutritional Substance into Central Vein, Percutaneous Approach (ICD-10-PCS; 2020-10-02)
PROC: 30233N1 Transfusion of Nonautologous Red Blood Cells into Peripheral Vein, Percutaneous Approach (ICD-10-PCS; 2020-10-03)
PROC: 0DJ08ZZ Inspection of Upper Intestinal Tract, Via Natural or Artificial Opening Endoscopic (ICD-10-PCS; 2020-10-09)
PROC: 0D9670Z Drainage of Stomach with Drainage Device, Via Natural or Artificial Opening (ICD-10-PCS; 2020-10-09)
PROC: 0DH68UZ Insertion of Feeding Device into Stomach, Via Natural or Artificial Opening Endoscopic (ICD-10-PCS; 2020-10-09)
DX: K31.1 Adult hypertrophic pyloric stenosis (principal); J18.9 Pneumonia, unspecified organism; R65.11 Systemic inflammatory response syndrome (SIRS) of non-infectious origin with acute organ dysfunction; K25.4 Chronic or unspecified gastric ulcer with hemorrhage; I21.A1 Myocardial infarction type 2; J96.01 Acute respiratory failure with hypoxia; G93.41 Metabolic encephalopathy; J96.10 Chronic respiratory failure, unspecified whether with hypoxia or hypercapnia; J44.0 Chronic obstructive pulmonary disease with (acute) lower respiratory infection; E44.0 Moderate protein-calorie malnutrition; I13.0 Hypertensive heart and chronic kidney disease with heart failure and stage 1 through stage 4 chronic kidney disease, or unspecified chronic kidney disease; I48.20 Chronic atrial fibrillation, unspecified; K55.1 Chronic vascular disorders of intestine; E87.0 Hyperosmolality and hypernatremia; N17.9 Acute kidney failure, unspecified; K20.90 Esophagitis, unspecified without bleeding; D63.8 Anemia in other chronic diseases classified elsewhere; E86.0 Dehydration; F03.90 Unspecified dementia, unspecified severity, without behavioral disturbance, psychotic disturbance, mood disturbance, and anxiety; F09 Unspecified mental disorder due to known physiological condition; I25.10 Atherosclerotic heart disease of native coronary artery without angina pectoris; K31.84 Gastroparesis; K59.00 Constipation, unspecified; N18.9 Chronic kidney disease, unspecified; Z20.828 Contact with and (suspected) exposure to other viral communicable diseases; E10.22 Type 1 diabetes mellitus with diabetic chronic kidney disease; E10.43 Type 1 diabetes mellitus with diabetic autonomic (poly)neuropathy; I50.9 Heart failure, unspecified; K29.80 Duodenitis without bleeding; K29.70 Gastritis, unspecified, without bleeding; Z99.81 Dependence on supplemental oxygen; Z87.891 Personal history of nicotine dependence; Z68.30 Body mass index [BMI] 30.0-30.9, adult; Z79.01 Long term (current) use of anticoagulants; Z79.4 Long term (current) use of insulin; Z88.0 Allergy status to penicillin
CPT/HCPCS: 36415; 36600; 70450; 71045; 71250; 72125; 74018; 74250; 76700; 80048; 80053; 80162; 80202; 82803; 82948; 83605; 83735; 83880; 84100; 84146; 84443; 84478; 84484; 85025; 85610; 85651; 85730; 86140; 86886; 86900; 86901; 86920; 87040; 87081; 87086; 87804; 92526; 92610; 93005; 94640; 96374; 96375; 97110; 97112; 97161-GP; 97530; 99291; A9153; C1758; C9113; J0282; J0696; J1160; J1200; J1650; J1720; J1815; J1940; J1956; J2001; J2250; J2270; J2765; J3010; J3370; J3490; J7030; J7060; J7612; J8597; P9016; U0003

== ENCOUNTER 2020-10-27 14:32 | Inpatient (IN) | payer OTHER, SELFPAY ==
--- NOTE | 2020-10-24 19:30 | NUR ---
RECEIVED PATIENT FROM AM SHIFT NURSE FOR CONTINUITY OF CARE. RESPIRATIONS EVEN, UNLABORED. CONTINUES ON O2 2L VIA NC, O2SAT 94%. SKIN WARM, DRY. SALINE LOCK TO RIGHT HAND 20G PATENT/INTACT. NO C/O PAIN. NO S/S ACUTE DISTRESS. ABDOMEN SOFT, NONTENDER, NONDISTENDED. BOWEL SOUNDS ACTIVE X4 QUADRANTS. PATIENT IS INCONTINENT OF B/B. PLAN OF CARE DISCUSSED. CALL LIGHT WITHIN REACH. SAFETY PRECAUTIONS IN PLACE. ISOLATION PRECAUTIONS OBSERVED BY ALL STAFF. Addendum: 11/01/20 at 0124 by Valarie Pollock RN WRONG TIME
--- NOTE | 2020-10-24 22:00 | NUR ---
CALLED [facility] REGARDING TRANSPORTATION. THEY DO NOT HAVE ANY DRIVERS AT THIS TIME. ETA FOR [employer] [facility] WILL BE TOMORROW AROUND NOON. CALLED [facility] AND INFORMED THEM OF ESTIMATED TIME. Addendum: 11/01/20 at 0124 by Valarie Pollock RN WRONG TIME
[~2020-10-27] VITALS: Ht 182.9 cm; Wt 99.8 kg
[~2020-10-27 14:32] MED LIST: ALBU-118 IH; ATOR10TA PO; CAR30 PO; DIGO0.1211 PO; DIGO0.122 PO; DOCU-299 PO; FURO-570 PO; MAGN400S60 PO; METO-486 PO; RIVA20TA PO; SENN-72 PO
[2020-10-27 15:05] VITALS: BP 89/51
--- NOTE | 2020-10-27 15:14 | NUR ---
PT BIBA [place] [facility] FOR LOW HGB 7.0 TESTED ON 10/26/2020. PT PRESENTS WITH SLIGHT SOB W/O RESPIRATORY DISTRESS OR ACCESSORY MUSCLE USE. +4 PITTING EDEMA ON ALYSSA LOWER EXTREMITIES NOTICED. PT IS ON 4L OXYGEN CONTINUOUSLY USED VIA NASAL CANNULA. PLACE PT ON 3L OXYGEN VIA NASAL CANNULA, PAUSE OX 100% AT THIS TIME. PT DENIES ANY PAIN, CHEST PAIN, N/V/D AT THIS TIME. MOST RECENT COVID SWAB DONE ON 09/25/2020 WITH NEGATIVE RESULT. PMH: PNA, CHF, HYPOXIA, AFIB WITH RVR/NSTEMI
--- NOTE | 2020-10-27 16:07 | NUR ---
XRAY IS AT BEDSIDE.
[2020-10-27 16:22] LABS: BASOPHILS % (AUTO) 0.3 % (0.0-2.0); EOSINOPHILS # (AUTO) 0.2 K/uL (0-0.4); HEMATOCRIT 22.2 % (36-52); LYMPHOCYTES # (AUTO) 3.4 K/uL (2.0-11.5); LYMPHOCYTES % (AUTO) 44.1 % (20.5-51.1); MEAN CORPUSCULAR HEMOGLOBIN 27 pg (27-31); MEAN CORPUSCULAR HGB CONC 31 g/dL (33-37); MEAN CORPUSCULAR VOLUME 86.9 fL (80-94); MONOCYTES # (AUTO) 0.6 K/uL (0.8-1.0); MONOCYTES % (AUTO) 7.4 % (1.7-9.3); NEUTROPHILS # (AUTO) 3.5 K/uL (1.8-7.7); NEUTROPHILS % (AUTO) 45.2 % (42.2-75.2); PLATELET COUNT (AUTO) 249 K/uL (140-450); RED BLOOD CELL COUNT(AUTO) 2.55 MIL/uL (4.20-6.10); WHITE BLOOD COUNT (AUTO) 7.8 K/uL (4.8-10.8)
[2020-10-27 16:27] LABS: HEMOGLOBIN 6.8 g/dL (12.0-18.0)
[2020-10-27] MEDS ORDERED: NACL 0.9% 500 ML IV ONE ×2 (16:30→23:00)
[2020-10-27 17:03] LABS: ALBUMIN 1.9 g/dL (3.4-5.0); ANION GAP 10.7 (8-16); ASPARTATE AMINOTRANSFERASE 24 U/L (15-37); CARBON DIOXIDE 28.6 mmol/L (21-32); CHLORIDE 108 mmol/L (98-107); GLUCOSE 149 mg/dL (74-106); POTASSIUM 4.3 mmol/L (3.5-5.1); SODIUM SERUM 143 mmol/L (136-145); TOTAL BILIRUBIN 0.4 mg/dL (0.0-1.0); UREA NITROGEN, BLOOD 35 mg/dL (7-18)
--- NOTE | 2020-10-27 19:18 | NUR ---
Antoni mccrary in [facility] - 10/27/20 at 1918 by [email or web address] REPORT GAVE TO SONIA UMAÑA. TX OF CARE AT THIS TIME.
--- NOTE | 2020-10-27 19:20 | NUR ---
REPORT GAVE TO SONIA UMAÑA. TX OF CARE AT THIS TIME.
--- NOTE | 2020-10-27 19:38 | NUR ---
RECEIVED REPORT FROM FIFI SCOTT
[2020-10-27] MEDS ORDERED: HYDROcodone/APAP 7.5/325 MG 1 TAB PO ONE (20:30)
--- NOTE | 2020-10-27 20:35 | NUR ---
PT'S C/O 10/10 PAIN TO BILATERAL LEGS. MD AWARE AND MED ORDERED
--- NOTE | 2020-10-27 21:00 | NUR ---
BLOOD PICKED UP FROM LAB. 1ST UNIT STARTED NOW
--- NOTE | 2020-10-27 21:05 | NUR ---
PT STATES PAIN IS BETTER, RATES THE PAIN 6/10
--- NOTE | 2020-10-27 21:18 | NUR ---
ARCELIA SWAB COLLECTED AND WALKED TO LAB
--- NOTE | 2020-10-27 22:45 | NUR ---
PT C/O PAIN BACK TO 07/30, AWARE, NEW ORDER RECEIVED AND CARRIED OUT
[2020-10-27] MEDS ORDERED: HYDROcodone/APAP 5/325 MG 1 TAB TAB PO ONE (22:50)
--- NOTE | 2020-10-27 23:10 | NUR ---
BLOOD FINISHED INFUSING. PT TOLERATED WITHOUT ANY ADVERSE REACTIONS. PT REMAINS ON BEDSIDE MONITOR AND O2 @ 3L N/C. PAIN TO LOWER EXTREMITIES IS IMPROVED SOME, STATES 04/29 NOW. WILL CONTINUE TO MONITOR PT
[2020-10-28] VITALS: BP 95/59
--- NOTE | 2020-10-28 00:23 | NUR ---
PT RESTING WITH HIS EYES CLOSED. NO DISTRESS NOTED. WILL CONTINUE TO MONITOR PT
[2020-10-28] MEDS ORDERED: MAGNESIUM OXIDE 400 MG TAB PO PRN (01:30)
[2020-10-28] MEDS ORDERED: ONDANSETRON 4 MG/2 ML VIAL IVP PRN (01:30)
[2020-10-28] MEDS ORDERED: MAG SULF 2000 MG/WATER PREMIX 50 ML IV PRN (01:30)
[2020-10-28] MEDS ORDERED: POTASSIUM CHLORIDE 10 MEQ TABER PO PRN (01:30)
[2020-10-28] MEDS ORDERED: KCL 20 MEQ/WATER INJ PREMIX 200 ML IV PRN (01:30)
[2020-10-28] MEDS ORDERED: ACETAMINOPHEN 325 MG TAB PO PRN (01:30)
--- NOTE | 2020-10-28 02:57 | NUR ---
PT WAS PROVIDED WITH A LEFT OVER DINNER TRAY. ATE 40%
--- NOTE | 2020-10-28 03:58 | NUR ---
PT SLEEPING, REMAINS ON MONITOR AND O2. RESPIRATIONS REGULAR EVEN AND UNLABORED. WILL CONTINUE TO MONITOR PT.
--- NOTE | 2020-10-28 05:43 | NUR ---
AM LABS COLLECTED AND WALKED TO LAB
[2020-10-28] MEDS ORDERED: ASCO500T95 PO (05:55)
[2020-10-28] MEDS ORDERED: FERR-20 PO (05:55)
[2020-10-28] MEDS ORDERED: MULT-2253 PO (05:55)
--- NOTE | 2020-10-28 07:43 | NUR ---
RECEIVED REPORT FROM SONIA UMAÑA FOR CONTINUATION OF CARE.
--- NOTE | 2020-10-28 09:07 | NUR ---
[facility] [phone]
[2020-10-28] MEDS: DOCUSATE SODIUM 100 MG GELCAP PO SCH (09:49)
[2020-10-28] MEDS: oxyCODONE/APAP 5/325 MG 1 TAB TAB PO PRN (09:50)
--- NOTE | 2020-10-28 09:50 | NUR ---
DC DAY HABILITATION SPECIALIST: RECEIVED ORDER TO DC BACK TO [facility]. SPOKE TO TERRIE BORJA AT [facility] [phone]. SHE IS WORKING ON SETTING UP TRANSPORTATION. Addendum: 10/28/20 at 1140 by Monica Richardson CM DC DAY HABILITATION SPECIALIST: FOLLOWED UP WITH TERRIE BORJA TRANSPORTATION IS ON WILL CALL WITH [facility] [phone]. WILL ACTIVATE WILL CALL ONCE WE RECEIVE DC Addendum: 10/28/20 at 1210 by Vidhi Curry CM TERRIE BORJA [phone] OF [facility] PROVIDED ME WITH AUTH [id number]. Addendum: 10/28/20 at 1421 by Monica Richardson CM ANNETTE ADLER: PATIENTS DISCHARGE WAS PUT ON HOLD. NOTIFIED FLORENCIA AT [facility]. Addendum: 10/29/20 at 1515 by Vidhi Curry CM PER DR. MARIA, WILL HOLD OFF ON DISCHARGING PT DUE TO BLOOD CULTURES CAME BACK POSITIVE. WILL CONSULT ID. Addendum: 11/01/20 at 1114 by Theodore OJEDA ZACHARIAH CONTACTED MARIE FROM [facility] [phone] WHO STATED PATIENT WILL BE RETURNING TO ROOM 37A UNDER ACCEPTING PHYSICIAN DR. CHRISTIANSEN. REPORT WILL BE GIVEN TO [phone]. ZACHARIAH CONTACTED LILY FROM [facility] [phone] WHO STATED THAT PATIENT'S TRANSPORTATION WILL BE ARRIVING AT 1230. ZACHARIAH NOTIFIED SONIA AYALA AND MARIE FROM [facility].
--- NOTE | 2020-10-28 10:00 | NUR ---
CALLED TO GIVE REPORT, LINE BUSY
--- NOTE | 2020-10-28 10:15 | NUR ---
CALLED TO GIVE REPORT, LINE REMAINS BUSY. ATTEMPTED TO CALL [facility], NO ANSWER
--- NOTE | 2020-10-28 10:19 | NUR ---
SOCIAL WORK NOTE: Patient's Orientation Unable To Assess Information Provided By MAURICIO SHARMA - Comments SW WAS UNABLE TO MEET PATIENT AT BEDSIDE DUE TO MEDICAL CONDITION. SW COMPLETED ASSESSMENT WITH PATIENT'S . Traveler Changer, Realtionship and Phone Number MAURICIO SHARMA [phone] Healthcare Power of Inspector Metal Fab[employer]ating No Does Patient Have a POLST No Identifying Problems No Social Work Triggers Is A Social Work Consult Needed No Mandate Report Filed No Explanation Of Identifying Problems PATIENT IS A 75-YEAR-OLD MALE ADMITTED FOR ANEMIA AND CHF. PATIENT HAS PMHX OF AFIB, CHF, DIABETES, AND HYPERTENSION. [facility] - [phone] Pre-Admission Level Of Functioning Status Total Care Level Of Functioning Comment PER , PATIENT IS BED BOUND. Prior Resources/Services Used In Last 12 Months SNF Rehab/Skilled Prior Resources/Service Comments [facility] IS A SKILLED PATIENT. Prior [facility] Hospital Bed Wheelchair Dialysis Comments N/A Living Situation Lives With Family Other Living Situation/Comment PATIENT LIVES AT [address] [place] [address] [place] [address] WITH AND SON PRIOR TO SKILLED STAY. Patient Had Caregiver No Home Support No Caregiver Issues Financial Issues No Known Financial Issue Referral To The Financial Counselor Needed No Factors/Needs SNF/NH Placement Explanation And Or Other Factors Affecting/Possible DC Needs STATED SHEW OULD PREFER PATIENT TO RETURN TO [facility]. Pt/Rep Participated In Discharge Plan Yes Patient/Family Agress With Discharge Plan Yes Discharge Plan Comments TENTATIVE DISCHARGE PLAN IS FOR PATIENT TO RETURN HOME. DC Plan Status Initiated
--- NOTE | 2020-10-28 10:43 | NUR ---
RECEIVED THIS 75 YEAR OLD MALE, PER OSIEL FROM ER, ADMITTED A CASE OF CHF AND ANEMIA UNDER JUANCHO FONSECA. AWAKE,ALERT, BREATHING SPONTANEOUSLY AT ROOM AIR, SATURATING AT 94%, NOT IN DISTRESS NOTED. WITH MULTIPLE PRESSURE AT SACRAL, BOTH HEEL AND LEFT LEG NOTED. WITH IV CANNULA G 20 AT RT AC ON SALINE LOCK NOTED. SAFETY MEASURES IN PLACE AND CONTINUE MONITOR.
--- NOTE | 2020-10-28 10:49 | NUR ---
Patient will be admitted to care of DR. MARIA. Admited to TELEMETRY. Will go to room 126A. Belongings list completed. Report to SONIA HOUSTON.
--- NOTE | 2020-10-28 12:47 | NUR ---
VITAL SIGNS TAKEN AND RECORDED, STABLE.
--- NOTE | 2020-10-28 13:35 | NUR ---
LAB RELAYED CRITICAL LAB RESULT OF BLOOD-GRAM POSITIVE COCCI, JUANCHO FONSECA INFORMED THRU TEXT MESSAGES, ACCORDING TO HIM TO ORDER BLOOD CULTURE, CARRIED OUT
--- NOTE | 2020-10-28 14:25 | NUR ---
SPONGE RENDERED, MULTIPLE PRESSURE SORE NOTED, SACRAL, BUTTOCKS, BOTH HEEL AND LEFT LOWER LEG, PHOTO TAKEN AND PLACE ON FILE.
--- NOTE | 2020-10-28 15:45 | NUR ---
WOUND CARE NURSE MADE AWARE, PATIENT FOR WOUND CONSULT, SHE REQUESTED FOR PRESSURE SORE BED.
--- NOTE | 2020-10-28 16:36 | NUR ---
PATIENT HAS BEEN SCREENED AND CATEGORIZED MODERATE NUTRITION RISK. PATIENT WILL BE SEEN WITHIN 3-5 DAYS OF ADMISSION. 10/30/20 11/01/[address]
--- NOTE | 2020-10-28 16:45 | NUR ---
JUANCHO FONSECA, ATTENDING DOCTOR, UPDATE PATIENT STATUS, PLAN FOR 2-3 DAYS ADMISSION UNTIL BLOOD CULTURE RESULT CAME OUT, ID AND WOUND CONSULT.
--- NOTE | 2020-10-28 18:45 | NUR ---
PERSONNEL CAME TO SET UP THE PRESSURE MATTRESS BED, APPARENTLY THE PATIENT HAVING DINNER, SET UP TEMPORARILY TO ROOM 9
[2020-10-28] MEDS ORDERED: NACL 0.9% IRR 250 ML BOTTLE IR PRN (19:10)
--- NOTE | 2020-10-28 19:20 | NUR ---
ENDORSED TO ELECTRONICS TECHNICIAN IN STABLE CONDITION FOR CONTINUITY OF CARE AND PRESSURE MATTRESS BED
--- NOTE | 2020-10-28 19:21 | NUR ---
RECEIVED REPORT FROM ELAN REEVES RN. PT AOX2 TO NAME AND PLACE ON ROOM AIR. NO S/S RESPIRATORY DISTRESS. NO C/O PAIN AT THIS TIME. IV SITE RAC 20G PATENT AND INTACT, S.L. HAS MULTIPLE PRESSURE SORES TO SACRAL, BUTTOCKS, AND BILATERAL HEEL LOWER LEG. SAFETY PRECAUTIONS IN PLACE. CALL LIGHT WITHIN REACH. WILL CONTINUE TO MONITOR
[2020-10-28 20:00] VITALS: BP 92/57
--- NOTE | 2020-10-28 21:00 | NUR ---
SPOKE WITH PATIENT'S DALI, , UPDATED ON PATIENT'S STATUS
--- NOTE | 2020-10-28 23:50 | NUR ---
PT ASLEEP IN BED. RESPIRATIONS EVEN AND UNLABORED. WILL CONTINUE TO MONITOR
[2020-10-29] VITALS: BP 95/59
--- NOTE | 2020-10-29 01:15 | NUR ---
CLEANED CHANGED REPOSITIONED PT, APPLIED HYDRAGUARD TO WOUND. TOLERATED WELL. WILL CONTINUE TO MONITOR
[2020-10-29] MEDS: HYDRAGUARD CREAM TP SCH ×2 (01:27→13:00)
--- NOTE | 2020-10-29 03:50 | NUR ---
PT ASLEEP IN BED. NO DISTRESS NOTED. WILL CONTINUE TO MONITOR
[2020-10-29 04:00] VITALS: BP 86/61
--- NOTE | 2020-10-29 07:35 | NUR ---
ENDORSED PT TO DAY RN FOR CONTINUITY OF CARE. PT IS IN STABLE CONDITION
[2020-10-29 07:40] LABS: THYROID STIMULATING HORMONE 10.92 uIU/mL (0.34-3.74)
[2020-10-29 08:00] VITALS: BP 96/68
--- NOTE | 2020-10-29 08:18 | NUR ---
Patient is in bed resting. Report received from night nurse. Patient is in stable condition. Patient is alert and oriented to name and place. Patient is on room air. No morning complaints. Right antecubital 20G IV. Homeostasis maintained at patients baseline. Bed in low position. Call light in reach. Will continue to monitor patient throughout shift.
--- NOTE | 2020-10-29 08:46 | NUR ---
FNS CONSULT RECEIVED FOR WOUNDS AND PRESSURE ULCERS. PATIENT WAS RE-SCREENED AND RE-CATEGORIZED HIGH NUTRITIONAL RISK. ROBBIE BARNARD RD
[2020-10-29] MEDS: DOCUSATE SODIUM 100 MG GELCAP PO SCH (09:00)
[2020-10-29 11:42] LABS: ANION GAP 10.5 (8-16); CARBON DIOXIDE 26.8 mmol/L (21-32); CHLORIDE 109 mmol/L (98-107); CREATININE 1.9 mg/dL (0.6-1.3); GLUCOSE 134 mg/dL (74-106); POTASSIUM 4.3 mmol/L (3.5-5.1); SODIUM SERUM 142 mmol/L (136-145); UREA NITROGEN, BLOOD 31 mg/dL (7-18)
[2020-10-29 12:00] VITALS: BP 98/56
[2020-10-29] MEDS ORDERED: VANCOMYCIN PER PHARMACY MC PRN (13:30)
--- NOTE | 2020-10-29 14:24 | NUR ---
10/29/20 RD INITIAL ASSESSMENT COMPLETED PLEASE REFER TO NUTRITION ASSESSMENT UNDER CARE ACTIVITY FOR ESTIMATED NUTRITIONAL NEEDS. 1. CONTINUE CARDIAC DIET TOLERATED 2. RECOMMEND ENSURE MAX TID 3. EDUCATED ON HIGH PROTEIN DIET FOR WOUND HEALING. PT ACCEPTED. 4. RD TO FOLLOW-UP 3-5 DAYS, MODERATE RISK ROBBIE BARNARD RD
[2020-10-29 14:41] LABS: BASOPHILS # (AUTO) 0.1 K/uL (0.00-0.22); BASOPHILS % (AUTO) 0.8 % (0.0-2.0); EOSINOPHILS # (AUTO) 0.2 K/uL (0-0.4); EOSINOPHILS % (AUTO) 3.3 % (0.0-4.0); HEMATOCRIT 26.8 % (36-52); HEMOGLOBIN 8.4 g/dL (12.0-18.0); LYMPHOCYTES % (AUTO) 40.8 % (20.5-51.1); MEAN CORPUSCULAR HEMOGLOBIN 28 pg (27-31); MEAN CORPUSCULAR HGB CONC 31 g/dL (33-37); MEAN CORPUSCULAR VOLUME 88.7 fL (80-94); MONOCYTES # (AUTO) 0.6 K/uL (0.8-1.0); MONOCYTES % (AUTO) 8.6 % (1.7-9.3); NEUTROPHILS # (AUTO) 3.4 K/uL (1.8-7.7); NEUTROPHILS % (AUTO) 46.5 % (42.2-75.2); PLATELET COUNT (AUTO) 289 K/uL (140-450); RED BLOOD CELL COUNT(AUTO) 3.02 MIL/uL (4.20-6.10); RED CELL DISTRIBUTION WIDTH 18.1 % (11.6-13.7); WHITE BLOOD COUNT (AUTO) 7.4 K/uL (4.8-10.8)
[2020-10-29] MEDS: VANCOMYCIN 1,000 MG in DEXTROSE 5% 250 ML IV SCH (15:28)
[2020-10-29 16:00] VITALS: BP 96/55
--- NOTE | 2020-10-29 19:11 | NUR ---
Patient in bed resting. Patient in stable condition. Bed in low position. Call light in reach. Two side rails up. Report given to night nurse.
--- NOTE | 2020-10-29 19:12 | NUR ---
RECEIVED REPORT FROM LEANDRO RNNITO. PT AOX4 ON ROOM AIR. NO S/S RESPIRATORY DISTRESS. NO C/O PAIN AT THIS TIME. IV SITE TO RAC PATENT AND INTACT. SAFETY MEASURES IN PLACE. CALL LIGHT WITHIN REACH. WILL CONTINUE TO MONITOR
[2020-10-29 20:00] VITALS: BP 112/65
[2020-10-30] VITALS: BP_SYST 105; BP_SYST 106; BP_DIAS 40; BP_DIAS 55
[2020-10-30] MEDS: HYDRAGUARD CREAM TP SCH ×2 (01:39→13:36)
--- NOTE | 2020-10-30 01:39 | NUR ---
CLEANED CHANGED REPOSITIONED PT, TOLERATED WELL. WILL CONTINUE TO MONITOR
[2020-10-30 04:00] VITALS: BP 92/62
--- NOTE | 2020-10-30 04:05 | NUR ---
PT ASLEEP IN BED. RESPIRATIONS EVEN AND UNLABORED. WILL CONTINUE TO MONITOR
[2020-10-30 06:35] LABS: BASOPHILS # (AUTO) 0.1 K/uL (0.00-0.22); BASOPHILS % (AUTO) 0.7 % (0.0-2.0); EOSINOPHILS # (AUTO) 0.3 K/uL (0-0.4); EOSINOPHILS % (AUTO) 3.6 % (0.0-4.0); HEMATOCRIT 27.2 % (36-52); HEMOGLOBIN 8.5 g/dL (12.0-18.0); LYMPHOCYTES # (AUTO) 2.9 K/uL (2.0-11.5); LYMPHOCYTES % (AUTO) 37.9 % (20.5-51.1); MEAN CORPUSCULAR HEMOGLOBIN 28 pg (27-31); MEAN CORPUSCULAR HGB CONC 31 g/dL (33-37); MONOCYTES # (AUTO) 0.6 K/uL (0.8-1.0); NEUTROPHILS # (AUTO) 3.8 K/uL (1.8-7.7); NEUTROPHILS % (AUTO) 49.8 % (42.2-75.2); PLATELET COUNT (AUTO) 311 K/uL (140-450); RED BLOOD CELL COUNT(AUTO) 3.06 MIL/uL (4.20-6.10); RED CELL DISTRIBUTION WIDTH 18.1 % (11.6-13.7); WHITE BLOOD COUNT (AUTO) 7.7 K/uL (4.8-10.8)
[2020-10-30 07:15] LABS: ANION GAP 10.4 (8-16); CARBON DIOXIDE 28.1 mmol/L (21-32); CHLORIDE 108 mmol/L (98-107); CREATININE 1.8 mg/dL (0.6-1.3); GLUCOSE 162 mg/dL (74-106); POTASSIUM 4.5 mmol/L (3.5-5.1); SODIUM SERUM 142 mmol/L (136-145); UREA NITROGEN, BLOOD 28 mg/dL (7-18)
--- NOTE | 2020-10-30 07:30 | NUR ---
ENDORSED PT TO DAY RN FOR CONTINUITY OF CARE. PT IS IN STABLE CONDITION
[2020-10-30 08:00] VITALS: BP 128/60
--- NOTE | 2020-10-30 09:35 | NUR ---
WOUND CARE EVALUATION NOTE: REASON FOR EVALUATION: MULTIPLE WOUNDS SKIN ASSESSMENT DONE WITH PRIMARY RN ON THIS 75 Y/O PT ADMITTED FROM SNF TO [facility] WITH DX OF ANEMIA AND CHF. PAST MEDICAL HX INCLUDES OF HYPERTENSION, TYPE 1 DIABETES, COPD, A. FIB. ALL ABOVE INFORMATION OBTAINED FROM ADMISSION H&P. PT IS AWAKE. SKIN IS WARM AND MOIST, BLE NO HAIR GROWTH, +2 EDEMA. DORSAL PEDAL PULSES PRESENT AND DIMINISH. CAPILLARY REFILLED >3 SEC. X 10 TOES. INCONTINENT OF BOWEL AND BLADDER X1 DURING ASSESSMENT. PLAN OF CARE DISCUSSED WITH PRIMARY RN. [facility] BED ORDERED AND PER PRIMARY RN THE BED IS IN RM 9 AND SHE WILL COORDINATE EXTRA HELPERS TO TRANSFER PT TO BED. INTEGUMENTARY: -PRESSURE ULCER INJURY UN-STAGEABLE TO SACRAL COCCYX AND EXTENDED TO R/L BUTTOCKS 8X8CM 100% YELLOW AND BROWN SLOUGH TISSUE, AMELIA-WOUND SKIN DENUDED WITH MAD, SURROUNDING REDNESS EXTENDED TO AMELIA-ANAL -LEFT LOWER LEG PARTIAL THICKNESS SKIN LOSS 3X2X0.1CM 100% YELLOW SLOUGH TISSUE, AMELIA WOUND SKIN DRY AND INTACT -PRESSURE ULCER INJURY UN-STAGEABLE TO LEFT HEEL 3X3CM, 100% BROWN SCABS, AMELIA WOUND SKIN MUSHY, NON-BLANCHABLE SCALY SKIN -PRESSURE ULCER INJURY UN-STAGEABLE RIGHT HEEL 4X4CM 100% BROWN COLOR THIN SKIN, AMELIA WOUND SKIN MUSHY WITH SCALY SKIN RECOMMENDATIONS: -CLEANSE LEFT LOWER LEG, RIGHT AND LEFT HEELS WITH WOUND CLEANSING SOLUTION, APPLY SOAKED BETADINE SOLUTION TO WOUND BED, AND COVER WITH DRY DRESSING QD AND PRN IF SOILING -CLEANSE SACRALCOCCYX, RIGHT AND LEFT BUTTOCKS WITH WOUND CLEANSING SOLUTION, APPLY SOAKED BETADINE SOLUTION TO WOUND BED, AND THIN LAYER OF Z GUARD TO AMELIA-WOUND SKIN AND AMELIA-ANAL, COVER WITH DRY DRESSING QD AND PRN IF SOILING -APPLY HEEL RAISER TO BOTH HEELS AND OFFLOADING AT ALL TIMES -OFFLOAD BILATERAL HEELS BY PLACING PILLOWS UNDER CALVES UNLESS OTHERWISE CONTRAINDICATED -PRESSURE REDISTRIBUTION SURFACE THERAPY -TURN AND REPOSITION Q2H, OFFLOAD SACRALCOCCYX AND BUTTOCKS BY TURNING RIGHT AND LEFT -CONTINUE TO FOLLOW RD RECOMMENDATIONS PLEASE CONTACT WOUND CARE NURSE FOR ANY QUESTION AND CHANGE OF WOUND CONDITION.
[2020-10-30] MEDS: DOCUSATE SODIUM 100 MG GELCAP PO SCH (09:37)
[2020-10-30 12:00] VITALS: BP 128/58
[2020-10-30] MEDS: GAUZE TP SCH (13:36)
[2020-10-30] MEDS: Z-GUARD PASTE TP SCH (13:36)
[2020-10-30] MEDS: LEVOFLOXACIN 500 MG/D5W PREMIX 100 ML IV SCH (15:22)
[2020-10-30] MEDS: VANCOMYCIN 1,000 MG in DEXTROSE 5% 250 ML IV SCH (15:23)
[2020-10-30 16:00] VITALS: BP 107/66
--- NOTE | 2020-10-30 19:30 | NUR ---
RECEIVED PATIENT IN STABLE CONDITION FROM AM SHIFT NURSE FOR CONTINUITY OF CARE. AAOX3. RESPIRATIONS EVEN, UNLABORED. CONTINUES ON O2 2L VIA NC, O2SAT 96%. NO C/O PAIN. NO S/S ACUTE DISTRESS. SKIN WARM, DRY. IV SITE TO RIGHT HAND 2OG PATENT/INTACT. ABDOMEN SOFT, NONTENDER. BOWEL SOUNDS ACTIVE X4 QUADRANTS. INCONTINENT OF B/B. PLAN OF CARE DISCUSSED. CALL LIGHT WITHIN REACH. SAFETY PRECAUTIONS IN PLACE. ISOLATION PRECAUTIONS OBSERVED BY ALL STAFF.
[2020-10-30 20:00] VITALS: BP 90/57
--- NOTE | 2020-10-30 21:30 | NUR ---
DUE MEDS GIVEN. NO C/O PAIN. NO S/S ACUTE DISTRESS. CALL LIGHT WITHIN REACH. SAFETY PRECAUTIONS IN PLACE. ISOLATION PRECAUTIONS OBSERVED BY ALL STAFF.
--- NOTE | 2020-10-30 23:00 | NUR ---
DRESSING CHANGED DUE TO SOILAGE. PATIENT AWAKE AND RESTING COMFORTABLY. NO S/S ACUTE DISTRESS. CALL LIGHT WITHIN REACH. SAFETY PRECAUTIONS IN PLACE. ISOLATION PRECAUTIONS OBSERVED BY ALL STAFF.
[2020-10-31] VITALS (7 sets, daily range): BP systolic 89–128; BP diastolic 55–89
--- NOTE | 2020-10-31 01:00 | NUR ---
PATIENT TURNED AND REPOSITIONED. DRESSING CHANGED DUE TO SOILAGE. CALL LIGHT WITHIN REACH. SAFETY PRECAUTIONS IN PLACE. ISOLATION PRECAUTIONS OBSERVED BY ALL STAFF.
[2020-10-31] MEDS: HYDRAGUARD CREAM TP SCH ×2 (01:26→13:45)
[2020-10-31] MEDS: oxyCODONE/APAP 5/325 MG 1 TAB TAB PO PRN ×2 (02:19→22:44)
--- NOTE | 2020-10-31 03:00 | NUR ---
PATIENT IS ASLEEP. NO S/S ACUTE DISTRESS. CALL LIGHT WITHIN REACH. SAFETY PRECAUTIONS IN PLACE. ISOLATION PRECAUTIONS OBSERVED BY ALL STAFF.
--- NOTE | 2020-10-31 05:00 | NUR ---
MADE ROUNDS. PATIENT IS ASLEEP. NO S/S ACUTE DISTRESS. CALL LIGHT WITHIN REACH. SAFETY PRECAUTIONS IN PLACE. ISOLATION PRECAUTIONS OBSERVED BY ALL STAFF.
[2020-10-31] MEDS: LEVOTHYROXINE 0.05 MG TAB PO SCH (06:06)
--- NOTE | 2020-10-31 07:30 | NUR ---
RECEIVED ENDORSEMENT FROM CARTON COUNTER FEEDER, AWAKE,ALERT, BREATHING SPONTANEOUSLY WITH O2 AT 2L/MIN VIA NC, NON LABORED NOTED. WITH IV CANNULA G20 AT RT AC ON SALINE LOCK NOTED. WITH MULTIPLE PRESSURE SORE,ON DRESSING PROTOCOL. SAFETY MEASURES IN PLACE AND CONTINUE MONITOR.
--- NOTE | 2020-10-31 09:46 | NUR ---
FULLY AWAKE AND ALERT, BREAKFAST SERVED, ASSISTED WELL
[2020-10-31 10:33] LABS: BASOPHILS % (AUTO) 0.6 % (0.0-2.0); EOSINOPHILS # (AUTO) 0.3 K/uL (0-0.4); EOSINOPHILS % (AUTO) 3.3 % (0.0-4.0); HEMATOCRIT 26.6 % (36-52); HEMOGLOBIN 8.5 g/dL (12.0-18.0); LYMPHOCYTES # (AUTO) 2.3 K/uL (2.0-11.5); LYMPHOCYTES % (AUTO) 29.6 % (20.5-51.1); MEAN CORPUSCULAR HEMOGLOBIN 28 pg (27-31); MEAN CORPUSCULAR HGB CONC 32 g/dL (33-37); MEAN CORPUSCULAR VOLUME 88.1 fL (80-94); MONOCYTES # (AUTO) 0.7 K/uL (0.8-1.0); NEUTROPHILS # (AUTO) 4.5 K/uL (1.8-7.7); NEUTROPHILS % (AUTO) 57.5 % (42.2-75.2); PLATELET COUNT (AUTO) 290 K/uL (140-450); RED BLOOD CELL COUNT(AUTO) 3.02 MIL/uL (4.20-6.10); RED CELL DISTRIBUTION WIDTH 18.2 % (11.6-13.7); WHITE BLOOD COUNT (AUTO) 7.8 K/uL (4.8-10.8)
[2020-10-31 10:50] LABS: ANION GAP 11.2 (8-16); CARBON DIOXIDE 27.6 mmol/L (21-32); CHLORIDE 107 mmol/L (98-107); CREATININE 1.7 mg/dL (0.6-1.3); GLUCOSE 159 mg/dL (74-106); POTASSIUM 4.8 mmol/L (3.5-5.1); SODIUM SERUM 141 mmol/L (136-145); UREA NITROGEN, BLOOD 25 mg/dL (7-18)
[2020-10-31] MEDS: DOCUSATE SODIUM 100 MG GELCAP PO SCH (11:24)
--- NOTE | 2020-10-31 11:29 | NUR ---
ASLEEP,NOT IN DISTRESS NOTED
[2020-10-31] MEDS ORDERED: SYN.05 PO (13:04)
[2020-10-31] MEDS ORDERED: [UNRECOGNIZED DRUG - CODE] IV (13:04)
[2020-10-31] MEDS ORDERED: APIX2.5 PO (13:04)
[2020-10-31] MEDS ORDERED: VANC1PLA7 IV (13:04)
--- NOTE | 2020-10-31 13:31 | NUR ---
AFTERNOON CARE DONE WITH MORTGAGE LOAN ASSISTANT, DRESSING CHANGED AT SACRAL WOUND AREA.
--- NOTE | 2020-10-31 13:31 | NUR ---
PICC LINE CONTACTED BY MR. KIM,, TRUCK SHOP MECHANIC.
[2020-10-31] MEDS: GAUZE TP SCH (13:44)
[2020-10-31] MEDS: Z-GUARD PASTE TP SCH (13:45)
[2020-10-31] MEDS: LEVOFLOXACIN 500 MG/D5W PREMIX 100 ML IV SCH (15:07)
[2020-10-31] MEDS: VANCOMYCIN 1,000 MG in DEXTROSE 5% 250 ML IV SCH (15:17)
--- NOTE | 2020-10-31 15:31 | NUR ---
ASLEEP, NOT IN DISTRESS NOTED
[2020-10-31] MEDS ORDERED: GENTAMICIN PER PHARMACY MC PRN (15:35)
[2020-10-31] MEDS ORDERED: GENTAMICIN 80 MG in DEXTROSE 5% 100 ML IV SCH (17:00)
--- NOTE | 2020-10-31 18:31 | NUR ---
NURSE SPECIALIST FOR PICC LINE CALLED TO PREPARE THE PICC LINE KIT
--- NOTE | 2020-10-31 19:20 | NUR ---
ENDORSED TO BECK OPERATOR IN STABLE CONDITION FOR CONTINUITY OF CARE
--- NOTE | 2020-10-31 19:30 | NUR ---
RECEIVED PATIENT FROM AM SHIFT NURSE FOR CONTINUITY OF CARE. RESPIRATIONS EVEN, UNLABORED. CONTINUES ON O2 2L VIA NC, O2SAT 94%. SKIN WARM, DRY. SALINE LOCK TO RIGHT HAND 20G PATENT/INTACT. NO C/O PAIN. NO S/S ACUTE DISTRESS. ABDOMEN SOFT, NONTENDER, NONDISTENDED. BOWEL SOUNDS ACTIVE X4 QUADRANTS. PATIENT IS INCONTINENT OF B/B. PLAN OF CARE DISCUSSED. CALL LIGHT WITHIN REACH. SAFETY PRECAUTIONS IN PLACE. ISOLATION PRECAUTIONS OBSERVED BY ALL STAFF.
--- NOTE | 2020-10-31 20:00 | NUR ---
CALLED [facility] AND PATIENT WILL GO TO 37-C. WAITING FOR PICC LINE INSERTION. WILL ENDORSE TO THE NEXT SHIFT.
--- NOTE | 2020-10-31 21:30 | NUR ---
[place] S[place]IA BRUCE [place] [facility] [place]. REPORT GIVEN.
--- NOTE | 2020-10-31 22:00 | NUR ---
CALLED [facility] REGARDING TRANSPORTATION. THEY DO NOT HAVE ANY DRIVERS AT THIS TIME. ETA FOR CROP RESEARCH SCIENTIST WILL BE TOMORROW AROUND NOON. CALLED [facility] AND INFORMED THEM OF ESTIMATED TIME.
--- NOTE | 2020-10-31 23:00 | NUR ---
UPDATED MELANI REGARDING PATIENT'S TRANSFER TOMORROW.
[2020-11-01] VITALS: BP 79/59
[2020-11-01] MEDS: HYDRAGUARD CREAM TP SCH (01:04)
--- NOTE | 2020-11-01 01:21 | NUR ---
PATIENT IS ASLEEP. NO S/S ACUTE DISTRESS. CALL LIGHT WITHIN REACH. SAFETY PRECAUTIONS IN PLACE. ISOLATION PRECAUTIONS OBSERVED BY ALL STAFF.
--- NOTE | 2020-11-01 03:00 | NUR ---
INCONTINENT CARE RENDERED WITH INTERNATIONAL STUDENT COUNSELOR AT BEDSIDE.
[2020-11-01 04:00] VITALS: BP 93/49
--- NOTE | 2020-11-01 05:30 | NUR ---
DRESSING CHANGED DUE TO SOILAGE. TURNED AND REPOSITIONED. CALL LIGHT WITHIN REACH. ISOLATION PRECAUTIONS OBSERVED. SAFETY PRECAUTIONS IN PLACE.
[2020-11-01] MEDS: LEVOTHYROXINE 0.05 MG TAB PO SCH (06:04)
[2020-11-01] MEDS: oxyCODONE/APAP 5/325 MG 1 TAB TAB PO PRN (06:05)
[2020-11-01 06:26] LABS: BASOPHILS % (AUTO) 0.5 % (0.0-2.0); EOSINOPHILS # (AUTO) 0.2 K/uL (0-0.4); EOSINOPHILS % (AUTO) 2.9 % (0.0-4.0); HEMATOCRIT 22.5 % (36-52); HEMOGLOBIN 7.4 g/dL (12.0-18.0); LYMPHOCYTES # (AUTO) 2.6 K/uL (2.0-11.5); LYMPHOCYTES % (AUTO) 33.1 % (20.5-51.1); MEAN CORPUSCULAR HEMOGLOBIN 29 pg (27-31); MEAN CORPUSCULAR HGB CONC 33 g/dL (33-37); MEAN CORPUSCULAR VOLUME 87.2 fL (80-94); MONOCYTES # (AUTO) 0.7 K/uL (0.8-1.0); MONOCYTES % (AUTO) 8.7 % (1.7-9.3); NEUTROPHILS # (AUTO) 4.2 K/uL (1.8-7.7); NEUTROPHILS % (AUTO) 54.8 % (42.2-75.2); PLATELET COUNT (AUTO) 289 K/uL (140-450); RED BLOOD CELL COUNT(AUTO) 2.58 MIL/uL (4.20-6.10); RED CELL DISTRIBUTION WIDTH 17.7 % (11.6-13.7); WHITE BLOOD COUNT (AUTO) 7.8 K/uL (4.8-10.8)
[2020-11-01 06:53] LABS: ANION GAP 10.6 (8-16); CARBON DIOXIDE 27.4 mmol/L (21-32); CHLORIDE 106 mmol/L (98-107); CREATININE 1.7 mg/dL (0.6-1.3); GLUCOSE 169 mg/dL (74-106); SODIUM SERUM 140 mmol/L (136-145); UREA NITROGEN, BLOOD 29 mg/dL (7-18)
--- NOTE | 2020-11-01 07:14 | NUR ---
ENDORSED PATIENT TO AM SHIFT FOR CONTINUITY OF CARE.
--- NOTE | 2020-11-01 07:20 | NUR ---
RECEIVED REPORT FROM NIGHTSHIFT NURSE. PT RESTING IN BED. ABLE TO MAKE NEEDS KNOWN. RESPIRATIONS EVEN AND UNLABORED WITH NO SOB OR RESPIRATORY DISTRESS. SKIN WARM AND DRY TO TOUCH. R UPPER ARM PICC LINE IS CLEAN, DRY, AND INTACT. SAFETY MEASURES IN PLACE. WILL CONTINUE TO MONITOR
[2020-11-01 08:00] VITALS: BP 86/54
[2020-11-01] MEDS: DOCUSATE SODIUM 100 MG GELCAP PO SCH (08:16)
--- NOTE | 2020-11-01 08:49 | NUR ---
ADMINISTERED SCHED MED PRESCRIBED PER MD ORDER. PT TOLERATED WELL. MEDICATION EDUCATION PERFORMED. PT VERBALIZED UNDERSTANDING. SAFETY MEASURES IN PLACE. WILL CONTINUE TO MONITOR
[2020-11-01] MEDS ORDERED: VANCOMYCIN HCL 1.25 GM in DEXTROSE 5% 250 ML IV SCH (09:00)
--- NOTE | 2020-11-01 10:15 | NUR ---
AT WINDOW TALKING TO PATIENT. PT RESPONDING BACK. NO SIGNS OF DISTRESS NOTED. WILL CONTINUE TO MONITOR
--- NOTE | 2020-11-01 11:50 | NUR ---
REPORT GIVEN TO SONIA WEISS. VERIFIED UNDERSTANDING. SAFETY MEASURES IN PLACE. WILL CONTINUE TO MONITOR
--- NOTE | 2020-11-01 12:30 | NUR ---
TRANSPORT HERE TO FILLING STATION ATTENDANT PAT[place] TO GO [place] [facility] [place] REPORT ALREADY GIVEN. PT TO GO WITH INTACT PICC LINE. REMOVED ID BAND AND ALLERGY BAND. PT GOING TO ROOM 37A WITH DR. TORRES. GATHERED ALL OF PT BELONGINGS. MASK PROVIDED TO PT. PT STABLE TO GO [place] [facility] [place].
== END 2020-11-01 13:17 | DRG 811 ==
LOC: MED 14:32 → MTU 10-28 00:11 → MMU 10-28 05:38 → MTU 10-30 15:15 → MMU 10-30 15:23
PROVIDERS: ADMIT Hospitalist; ATTEND Hospitalist
PROC: 30233N1 Transfusion of Nonautologous Red Blood Cells into Peripheral Vein, Percutaneous Approach (ICD-10-PCS; principal; 2020-10-27)
PROC: 02HV33Z Insertion of Infusion Device into Superior Vena Cava, Percutaneous Approach (ICD-10-PCS; 2020-10-31)
DX: D64.9 Anemia, unspecified (principal); E43 Unspecified severe protein-calorie malnutrition; J18.9 Pneumonia, unspecified organism; N17.0 Acute kidney failure with tubular necrosis; J44.0 Chronic obstructive pulmonary disease with (acute) lower respiratory infection; I13.0 Hypertensive heart and chronic kidney disease with heart failure and stage 1 through stage 4 chronic kidney disease, or unspecified chronic kidney disease; N18.4 Chronic kidney disease, stage 4 (severe); E44.0 Moderate protein-calorie malnutrition; I48.91 Unspecified atrial fibrillation; E03.9 Hypothyroidism, unspecified; E11.22 Type 2 diabetes mellitus with diabetic chronic kidney disease; E78.5 Hyperlipidemia, unspecified; Z20.828 Contact with and (suspected) exposure to other viral communicable diseases; I50.9 Heart failure, unspecified; L89.90 Pressure ulcer of unspecified site, unspecified stage; B95.2 Enterococcus as the cause of diseases classified elsewhere; Z68.29 Body mass index [BMI] 29.0-29.9, adult; I25.2 Old myocardial infarction; Z88.0 Allergy status to penicillin; Z74.01 Bed confinement status; Z79.899 Other long term (current) drug therapy; Z79.01 Long term (current) use of anticoagulants; R71.0 Precipitous drop in hematocrit
CPT/HCPCS: 36415; 36430; 71045; 80048; 80053; 80202; 83540; 83605; 83735; 83880; 84443; 84484; 85025; 85651; 86140; 86886; 86900; 86901; 86920; 87040; 87081; 87186; 93005; 96360; 96361; 97110; 97112; 97161-GP; 97530; 99285; J1580; J1956; J3370; J3475; J7060; P9016; U0003

== ENCOUNTER 2020-11-09 13:11 | Inpatient (IN) | payer OTHER, MEDICAID, SELFPAY ==
[~2020-11-09] VITALS: Ht 188 cm; Wt 104.3 kg
[~2020-11-09 13:11] MED LIST changes: +APIX2.5 PO; +ASCO500T95 PO; +FERR-20 PO; +MULT-2253 PO; -RIVA20TA PO; +SYN.05 PO; +VANC1PLA7 IV; +[UNRECOGNIZED DRUG - CODE] IV
[2020-11-09 13:21] VITALS: BP 129/85
--- NOTE | 2020-11-09 14:05 | NUR ---
PATIENT BIBA [facility] TO ER [facility]
--- NOTE | 2020-11-09 14:10 | NUR ---
CODE BRAIN CALLED PER DR. KENDALL
--- NOTE | 2020-11-09 14:20 | NUR ---
PATIENT TAKEN TO CT AT THIS TIME
--- NOTE | 2020-11-09 14:46 | NUR ---
Patient transferred to bed 11 for further care. RN reevaluating the patient at bedside.
[2020-11-09 14:49] LABS: BASOPHILS # (AUTO) 0.1 K/uL (0.00-0.22); BASOPHILS % (AUTO) 0.6 % (0.0-2.0); EOSINOPHILS # (AUTO) 0.2 K/uL (0-0.4); EOSINOPHILS % (AUTO) 1.5 % (0.0-4.0); HEMATOCRIT 26.1 % (36-52); HEMOGLOBIN 8.1 g/dL (12.0-18.0); LYMPHOCYTES % (AUTO) 22.4 % (20.5-51.1); MEAN CORPUSCULAR HEMOGLOBIN 26 pg (27-31); MEAN CORPUSCULAR HGB CONC 31 g/dL (33-37); MEAN CORPUSCULAR VOLUME 85.1 fL (80-94); MONOCYTES # (AUTO) 0.8 K/uL (0.8-1.0); MONOCYTES % (AUTO) 5.7 % (1.7-9.3); NEUTROPHILS # (AUTO) 9.2 K/uL (1.8-7.7); NEUTROPHILS % (AUTO) 69.8 % (42.2-75.2); PLATELET COUNT (AUTO) 449 K/uL (140-450); RED BLOOD CELL COUNT(AUTO) 3.07 MIL/uL (4.20-6.10); RED CELL DISTRIBUTION WIDTH 18.2 % (11.6-13.7); WHITE BLOOD COUNT (AUTO) 13.2 K/uL (4.8-10.8)
--- NOTE | 2020-11-09 15:00 | NUR ---
PT BIBA [facility] FOR HYPOXIA (80S O2 SATURATION), AND HYPOTENSION (80S SYSTOLIC). PT PRESENTS WITH AOX0, MUMBLES RANDOM WORDS AND GCS 14 ([id number]). PT ON 3L NC, SPO2 95%, RR 30. PT ALERT AND AWAKE, BREATHING EVEN AND UNLABORED, SKIN WARM AND DRY. BED IN LOWEST POSITION, LOCKED, BED RAIL UPX1. PMH - HTN, DM2, COPD, AFIB, NE, CKD ALLERGIES - PCN
[2020-11-09 15:15] LABS: LACTATE DEHYDROGENASE 196 U/L (85-227)
[2020-11-09 15:25] LABS: PROTHROMBIN TIME 12.8 secs (10.8-13.4)
--- NOTE | 2020-11-09 15:30 | NUR ---
PT ALERT AND AWAKE, BREATHING EVEN AND UNLABORED. REMAINS ON 3L NC
[2020-11-09] MEDS ORDERED: NACL 0.9% 1,000 ML IV ONE (15:45)
[2020-11-09] MEDS ORDERED: DILTIAZEM 25 MG/5 ML VIAL IVP ONE ×2 (15:45→19:35)
[2020-11-09 15:47] LABS: C-REACTIVE PROTEIN QUANT 13.9 mg/dL (0.0-0.9)
[2020-11-09] MEDS ORDERED: HYDR-5122 PO (15:56)
--- NOTE | 2020-11-09 16:47 | NUR ---
PT STRAIGHT CATHED WITHOUT COMPLICATIONS, 1300ML RETURN OF YELLOW CLEAR URINE. PT TOLERATED WELL
--- NOTE | 2020-11-09 17:02 | NUR ---
COVID, FLU, AND RSV SWABS SENT TO LAB
[2020-11-09] MEDS ORDERED: FUROSEMIDE 40 MG/4 ML VIAL IVP SCH (17:20)
[2020-11-09] MEDS ORDERED: METOPROLOL 50 MG TAB PO ONE (17:20)
[2020-11-09 17:28] LABS: APPEARANCE,URINE CLEAR (CLEAR); BILIRUBIN,URINE NEGATIVE (NEGATIVE); BLOOD, URINE NEGATIVE (NEGATIVE); COLOR,URINE YELLOW (YELLOW); LEUKOCYTE ESTERASE ,URINE NEGATIVE (NEGATIVE); NITRITE, URINE NEGATIVE (NEGATIVE); PH,URINE 5.5 (5.0-9.0); UGLUCOSE NEGATIVE (NEGATIVE)
--- NOTE | 2020-11-09 17:30 | NUR ---
PT ALERT AND AWAKE, BREATHING EVEN AND UNLABORED. REMAINS ON 3L NC
[2020-11-09 17:42] LABS: RSV NEGATIVE (NEGATIVE)
[2020-11-09] MEDS ORDERED: METOPROLOL 5 MG/5 ML VIAL IVP ONE (18:50)
--- NOTE | 2020-11-09 18:50 | NUR ---
PT HR REMAINS IN 130 RANGE, ERMD MADE AWARE
--- NOTE | 2020-11-09 19:33 | NUR ---
REPORT GIVEN TO CHASIDY SCOTT, TRANSFER OF CARE AT THIS TIME
--- NOTE | 2020-11-09 19:35 | NUR ---
PT ALERT AND AWAKE, BREATHING EVEN AND UNLABORED. REMAINS ON 3L NC
--- NOTE | 2020-11-09 19:51 | NUR ---
REPORT RECEIVED FROM CONSTANTINO SCOTT
--- NOTE | 2020-11-09 20:53 | NUR ---
Note demetra in EDM - 11/15/20 at 0217 by [email or web address] PT REMAINS ON BEDSIDE MONITOR, PT TACHYPNEIC AT 27. PT O2 SAT 98% ON RA. A/O X1. BED IN LOWESTR POSITIONS AND SIDERAIL UP X 2 FOR PT SAFETY.
--- NOTE | 2020-11-09 21:00 | NUR ---
PT'S GOWN CHANGED AND PT REPOSSITIONED FOR COMFORT
[2020-11-09] MEDS ORDERED: DILTIAZEM 125 MG in DEXTROSE 5% 100 ML IV ONE (21:50)
[2020-11-09 22:38] LABS: ALBUMIN 1.9 g/dL (3.4-5.0); ANION GAP 12.1 (8-16); ASPARTATE AMINOTRANSFERASE 21 U/L (15-37); CARBON DIOXIDE 27.7 mmol/L (21-32); CHLORIDE 111 mmol/L (98-107); CREATININE 1.9 mg/dL (0.6-1.3); GLUCOSE 129 mg/dL (74-106); POTASSIUM 3.8 mmol/L (3.5-5.1); SODIUM SERUM 147 mmol/L (136-145); TOTAL BILIRUBIN 0.3 mg/dL (0.0-1.0); UREA NITROGEN, BLOOD 23 mg/dL (7-18)
--- NOTE | 2020-11-09 22:44 | NUR ---
MD COUCH AWARE CARDIZEM IS CURRENLTY CONTRAINDICATED DUE TO CONTINUOUS LOW B/P. AT BEDSIDE ASSESSING PT. NEW ORDER FOR FLUIDS GIVEN
--- NOTE | 2020-11-09 23:00 | NUR ---
PTS GOWN CHANGED ALONG WITH ALL LINENS AND DIAPER. PT HAS LARGE PRESSURE ULCER TO SACRAL/COCCYX AREA, LEFT LOWER EXTREMITY, AND BILATERAL HEELS. PICTURES TAKEN OF ALL WOUNDS. PT POSITIONED IN BED TO ALLEVIATE PRESSURE OFF OF COCCYX AND PILLOW PLACED UNDER BILATERAL HEELS.
[2020-11-09] MEDS ORDERED: ONDANSETRON 4 MG/2 ML VIAL IVP ONE (23:35)
[2020-11-09] MEDS ORDERED: MORPHINE SULFATE 4 MG/ML SYR IVP ONE (23:35)
[2020-11-10] MEDS ORDERED: MAG SULF 2000 MG/WATER PREMIX 50 ML IV PRN (01:45)
[2020-11-10] MEDS ORDERED: fentaNYL citrate 0.05 MG/ML VIAL IVP ONE (01:45)
[2020-11-10] MEDS ORDERED: ACETAMINOPHEN 325 MG TAB PO PRN (01:45)
[2020-11-10] MEDS ORDERED: KCL 20 MEQ/WATER INJ PREMIX 200 ML IV PRN (01:45)
[2020-11-10] MEDS ORDERED: POTASSIUM CHLORIDE 10 MEQ TABER PO PRN (01:45)
[2020-11-10] MEDS ORDERED: ONDANSETRON 4 MG/2 ML VIAL IVP PRN (01:45)
--- NOTE | 2020-11-10 01:45 | NUR ---
PT YELLING OUT, WENT TO SEE PT, PT SAID HE HAD PAIN, NOTIFIED MD TREJO, NEW ORDER RECEIVED AND CARRIED OUT.
--- NOTE | 2020-11-10 02:04 | NUR ---
PT O2 SAT DROPPED TO 83 ON 3 L NC AFTER BEING MEDICATED WITH FENTANYL, NONREBREATHER MASK PLACED ON PT WITH O2 AT 15L, O2 SAT INCREASED TO 99%. WILL CONTINUE TO MONITOR PT
[2020-11-10] MEDS ORDERED: LEVOFLOXACIN 500 MG/D5W PREMIX 100 ML IV SCH (02:15)
--- NOTE | 2020-11-10 03:48 | NUR ---
PT SLEEPING, REMAINS ON BEDSIDE MONITOR, NONREBREATHER AT 15L. RESPIRATIONS REGULAR EVEN AND UNLABORED. WILL CONTINUE TO MONITOR
[2020-11-10] MEDS: ALBUMIN HUMAN 25% 100 ML IV SCH ×3 (05:54→21:50)
[2020-11-10] MEDS: FUROSEMIDE 40 MG/4 ML VIAL IVP SCH ×3 (05:54→21:49)
--- NOTE | 2020-11-10 06:30 | NUR ---
PT SLEEPING, REMAINS ON BEDSIDE MONITOR. RESPIRATIONS REGULAR EVEN AND INLABORED. PT REMAINS ON NONREBREATHER AT 15L
--- NOTE | 2020-11-10 07:31 | NUR ---
Pt report given to JOSIE SCOTT. Transfer of care at this time.
--- NOTE | 2020-11-10 07:32 | NUR ---
Received report from SONIA Garcia from night shift manager for continuity of care
--- NOTE | 2020-11-10 07:55 | NUR ---
Patient sleeping at this time, VVS, cardiac cath lab technologist with a-fib at 98 BPM. VVS, O2 at 6l/min NC, HOB elevated Resp even and unlabored, RR 20-24/min, in NAD IV patent #[id number] left AC with NS @ 60cc/hr Waiting for a M/S bed room, no beds available at this time Will continue to monitor and evaluate in the ED
--- NOTE | 2020-11-10 09:10 | NUR ---
Patient incontinent of large amount of urine, soaked diaper and sheets. Does not ask for the urinal. Skin cleaned and gown, bed sheets changed. Placed on his left side positioned with pillows
--- NOTE | 2020-11-10 09:37 | NUR ---
PATIENT HAS BEEN SCREENED AND CATEGORIZED MODERATE NUTRITION RISK. PATIENT WILL BE SEEN WITHIN 3-5 DAYS OF ADMISSION. 11/12/20 11/14/[address]
[2020-11-10] MEDS: DOCUSATE SODIUM 100 MG GELCAP PO SCH (09:55)
--- NOTE | 2020-11-10 10:46 | NUR ---
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
--- NOTE | 2020-11-10 12:00 | NUR ---
DC PLANNIN YRS OLD MALE PATIENT WAS ADMITTED FROM [facility] [place] WITH A DX OF CHF EXACERBATION /UNCONTROLLED A-FIB. PT HAS A HX OF HTN, DM COPD AND A-FIB. CXR SHOWED MILD ATELECTASIS. RAPID COVID TEST NEGATIVE PCR IS PENDING. CT HEAD NO EVIDENCE OF INTRACRANIAL HEMORRHAGE CONSULTED WITH MICE RAISER FOR CHF AND A-FIB. DC PLAN TO GO BACK TO [facility] [place] WHEN STABLE. CM TO FOLLOW. Addendum: 11/11/20 at 1217 by Annika Caro RN DC PLANNING: CALLED [facility] LEFT A MESSAGE FOR [facility] FAXED CLINICALS AT [phone] CM TO FOLLOW Addendum: 11/11/20 at 1448 by Annika Caro RN DC PLANNING: DR TEE AND MYSELF CALLED PT'S SPOKE WITH JAGUAR CARRILLO HER THE PT'S CLINICALS , ANSWERED ALL THE QUESTIONS , MELANI AGREED WITH PT RECEIVE BLOOD TRANSFUSION AND OK TO GO BACK TO [facility] [place]. DC PLAN TO GO BACK TO [facility] [place] WHEN STABLE CM TO FOLLOW Addendum: 11/12/20 at 1517 by Monica Richardson CM DC PAYROLL BOOKKEEPER: POSSIBLE DC BACK TO [facility] [place] TODAY. FAXED PATIENTS CLINICALS. CONTACTED [facility] [place] [phone] FOR TRANSPORTATION AUTH SPOKE TO SAVANNA VILA [phone]. SHE IS WORKING ON TRANSPORTATION FOR PATIENT. Addendum: 11/12/20 at 1540 by Monica Richardson CM DC PAYROLL BOOKKEEPER: HERSON DON PATIENT CAN GO TO ROOM 37A UNDER DR[address] CHRISTIANSEN Addendum: 11/12/20 at 1554 by Monica Richardson CM DC PAYROLL BOOKKEEPER: WHEN PATIENT IS READY FOR DC TERRIE PINA CAN ASSIST WITH THE TRANSPORTATION. SHE WILL BE WORKING TOMORROW. CALL [phone]. SHE WILL SET UP TRANSPORT WITH [facility] [phone] Addendum: 11/15/20 at 1552 by Vidhi Curry CM PER DR. TEE, WILL MONITOR PATIENT'S BP FOR NOW AND INCREASED MIDODRINE, IF STABLE WILL DC TOMORROW. Addendum: 11/15/20 at 1632 by Vidhi Curry CM CLARIFIED DC ORDER WITH DR. TEE. HE STATED WILL CHANGE DC ORDER TO TOMORROW. CONTACTED [facility] AT [phone], ABLE TO SPEAK TO CHRISTY (ANSWERING SERVICE). HE STATED TO [facility] [phone]. CONTACTED THE PROVIDED NUMBER, ABLE TO SPEAK TO KAYLI (ANSWERING SERVICE), SHE STATED SHE WILL TRANSFER TO . SPOKE TO DYANA, SHE STATED SHE WILL PLACE PATIENT ON THE LIST FOR TOMORROW. Addendum: 11/16/20 at 0917 by Monica Richardson CM DC PAYROLL BOOKKEEPER: SPOKE TO TERRIE BORJA AT [facility] [phone] SHE IS GOING TO ACTIVATE WILL CALL TRANSPORTATION FOR TODAY WITH [facility] FOR 12:00 PM Addendum: 11/16/20 at 1203 by Monica Richardson CM DC PAYROLL BOOKKEEPER: TRANSPORTATION PUT ON WILL CALL PER RN BYRNE PATIENT NEEDS TO BE SEEN BY WOUND CARE FIRST. Addendum: 11/16/20 at 1458 by Monica Richardson CM ANNETTE PAYROLL BOOKKEEPER: RECEIVED PHONE CALL FROM JONH AT [facility] [phone] SHE IS WANTING TO KNOW WHEN THE PATIENT WILL BE DISCHARGING BECAUSE THE IS WANTING TO SET UP HOSPICE WITH [facility].
--- NOTE | 2020-11-10 12:07 | NUR ---
SOCIAL WORK NOTE: Patient's Orientation Unable To Assess Information Provided By MAURICIO SHARMA - Comments SW WAS UNABLE TO MEET PATIENT AT BEDSIDE DUE TO MEDICAL CONDITION. SW COMPLETED ASSESSMENT WITH PATIENT'S . Electronic Communications Technician, Realtionship and Phone Number MAURICIO SHARMA [phone] Healthcare Power of Freight Delivery Driver No Does Patient Have a POLST No Identifying Problems No Social Work Triggers Is A Social Work Consult Needed No Mandate Report Filed No Explanation Of Identifying Problems PATIENT IS A 75-YEAR-OLD MALE ADMITTED CONGESTIVE HEART FAILURE. PATIENT HAS PMHX OF HYPERTENSION AND DYSLIPIDEMIA. PATIENT WAS LAST DISCHARGED FROM [facility] ON 11/01/2020. STATED THAT SHE IS COORDINATING PATIENT TO BE ON HOSPICE. [facility] Hospice Provider [facility] Pre-Admission Level Of Functioning Status Total Care Prior Resources/Services Used In Last 12 Months No Prior Resources Used Prior DME Hospital Bed Wheelchair Dialysis Comments N/A Patient Had Caregiver No Home Support No Caregiver Issues Financial Issues No Known Financial Issue Referral To The Financial Counselor Needed No Factors/Needs No D/C Needs Identified Explanation And Or Other Factors Affecting/Possible DC Needs FAMILY REQUESTED PAT[place] [facility] [place]. Pt/Rep Participated In Discharge Plan Yes Patient/Family Agress With Discharge Plan Yes Discharge Plan Comments TENTATIVE DISCHARGE PLAN IS FOR PATIENT TO RETURN [place] [facility] [place]. DC Plan Status Initiated
--- NOTE | 2020-11-10 12:44 | NUR ---
Patient O2 sat 98% on 6l/min NC, HOB elevated, O2 decreased to 5l/min NC, will continue to monitor
--- NOTE | 2020-11-10 13:13 | NUR ---
Patient's Lucy Brown calling for an update on patient's status
--- NOTE | 2020-11-10 13:49 | NUR ---
Patient O2 sat 99% on 5l/min NC, HOB elevated, O2 decreased to 4l/min NC, will continue to monitor
--- NOTE | 2020-11-10 15:08 | NUR ---
Patient incontinent of large amount of urine again, soaked diaper and sheets. Does not ask for the urinal. Skin cleaned and gown, bed sheets changed. Placed on his right side positioned with pillows
--- NOTE | 2020-11-10 17:10 | NUR ---
Patient incontinent of large amount of urine again, soaked diaper and sheets. Does not ask for the urinal. Skin cleaned and gown, bed sheets changed. Placed on his left side positioned with pillows
--- NOTE | 2020-11-10 17:55 | NUR ---
Patient given cardiac diet tray for dinner, HOB elevated, tray set up and everything opened for patient packer denture with atrial fibrillation 95-125 BPM, VVS in NAD Will continue to monitor
--- NOTE | 2020-11-10 18:27 | NUR ---
Patient getting agitated that he "doesn't have a TV or a room", explained but continues to pull monitoring equipment off. Ativan 1 mg PO given
[2020-11-10] MEDS: LORazepam 1 MG TAB PO PRN (18:32)
--- NOTE | 2020-11-10 19:37 | NUR ---
Detailed report given to SONIA Garcia for police shift commander. Questions answered, meds and orders reviewed
--- NOTE | 2020-11-10 19:53 | NUR ---
REPORTED RECEIVED FROM JOSIE SCOTT
--- NOTE | 2020-11-10 19:57 | NUR ---
PT CONSUMED 100% OF DINNER TRAY. PT REPOSITIONED IN BED, OFF OF COCCYX AREA. REMAINS ON BEDSIDE MONITOR AND O2 AT 4L NC
--- NOTE | 2020-11-10 19:57 | NUR ---
DIAPER CHANGED ALONG WITH PADS TO COCCYX AREA AND BILATERAL HEELS.
[2020-11-10] MEDS: HYDROcodone/APAP 5/325 MG 1 TAB TAB PO PRN (20:43)
--- NOTE | 2020-11-10 22:30 | NUR ---
PT RESPOSITONED IN BEDSIDE
[2020-11-11] MEDS: LORazepam 1 MG TAB PO PRN (00:50)
--- NOTE | 2020-11-11 00:50 | NUR ---
PT CONTINUES TO YELL OUT AND KNOCKED OVER HIS BEDSIDE TRAY. MEDICATED WITH ATIVAN FOR AGITATION
[2020-11-11] MEDS: HYDROcodone/APAP 5/325 MG 1 TAB TAB PO PRN ×4 (00:51→21:55)
[2020-11-11] MEDS: LEVOFLOXACIN 250 MG/D5 PREMIX 50 ML IV SCH (01:13)
[2020-11-11] MEDS ORDERED: LEVOFLOXACIN 250 MG/D5 PREMIX 50 ML IV ONE (01:14)
--- NOTE | 2020-11-11 01:30 | NUR ---
PT RESPOSITIONED IN BED, PILLOWS PLACED UNDER HEELS AND BUTTOCKS. REMAINS ON MONITOR AND O2 AT 4L N/C
--- NOTE | 2020-11-11 04:15 | NUR ---
PT REQUESTING MORPHINE OR NORCO, ADVISED HE HAS TO WAIT TO RECEIVE MORE PAIN MEDS.
[2020-11-11] MEDS: FUROSEMIDE 40 MG/4 ML VIAL IVP SCH ×3 (04:19→21:54)
--- NOTE | 2020-11-11 04:44 | NUR ---
[facility] SWAB COLLECTED AND TAKEN TO LAB
--- NOTE | 2020-11-11 05:24 | NUR ---
MEDICATED FORN PAIN. CHANGED DIAPER AND REPOSITIONED IN BED. PT ON BEDSIDE MONITOR AND O2 4L NC
--- NOTE | 2020-11-11 06:28 | NUR ---
PT SLEEPING, ON BEDSIDE MONITOR AND O2 @ 4L NC. RESPIRATIONS REGULAR EVEN AND UNLABORED.
--- NOTE | 2020-11-11 07:28 | NUR ---
Pt report given to MARISOL SCOTT. Transfer of care at this time.
--- NOTE | 2020-11-11 07:35 | NUR ---
RECIEVED REPORT FROM SONIA UMAÑA. TRANSFER OF CARE AT THIS TIME.
[2020-11-11] MEDS: DOCUSATE SODIUM 100 MG GELCAP PO SCH (09:00)
--- NOTE | 2020-11-11 09:00 | NUR ---
BREAKFAST TRAY PROVIDED TO PT
[2020-11-11 09:03] LABS: BASOPHILS % (AUTO) 0.1 % (0.0-2.0); HEMATOCRIT 21.1 % (36-52); LYMPHOCYTES # (AUTO) 1.3 K/uL (2.0-11.5); LYMPHOCYTES % (AUTO) 13.2 % (20.5-51.1); MEAN CORPUSCULAR HEMOGLOBIN 27 pg (27-31); MEAN CORPUSCULAR HGB CONC 31 g/dL (33-37); MEAN CORPUSCULAR VOLUME 85.8 fL (80-94); MONOCYTES # (AUTO) 0.5 K/uL (0.8-1.0); MONOCYTES % (AUTO) 4.7 % (1.7-9.3); NEUTROPHILS # (AUTO) 8.3 K/uL (1.8-7.7); PLATELET COUNT (AUTO) 356 K/uL (140-450); RED BLOOD CELL COUNT(AUTO) 2.46 MIL/uL (4.20-6.10); RED CELL DISTRIBUTION WIDTH 17.7 % (11.6-13.7); WHITE BLOOD COUNT (AUTO) 10.1 K/uL (4.8-10.8)
[2020-11-11 09:28] LABS: HEMOGLOBIN 6.6 g/dL (12.0-18.0)
--- NOTE | 2020-11-11 10:08 | NUR ---
PAGED DR. TEE TO REPORT CRITICAL LAB VALUE.
[2020-11-11 10:11] LABS: ALBUMIN 2.6 g/dL (3.4-5.0); ANION GAP 12.7 (8-16); ASPARTATE AMINOTRANSFERASE 21 U/L (15-37); CARBON DIOXIDE 30.6 mmol/L (21-32); CHLORIDE 110 mmol/L (98-107); CREATININE 1.9 mg/dL (0.6-1.3); GLUCOSE 206 mg/dL (74-106); MAGNESIUM 1.8 mg/dL (1.8-2.4); POTASSIUM 4.3 mmol/L (3.5-5.1); SODIUM SERUM 149 mmol/L (136-145); TOTAL BILIRUBIN 0.3 mg/dL (0.0-1.0); UREA NITROGEN, BLOOD 31 mg/dL (7-18)
--- NOTE | 2020-11-11 10:27 | NUR ---
SPOKE WITH DR. TEE ABOUT CRITICAL HGB
--- NOTE | 2020-11-11 10:51 | NUR ---
PT REPOSITINED FOR COMFORT TO RIGHT SIDE. HEALS LIFTED OFF THE BED, SUPPORTED BY PILLOWS. NEW MASK PROVIDED TO PT. GOWN CHANGED, LINENS CHANGED, DIAPER CHANGED. YOUTH CAREER SPECIALIST/PULSE OX IN PLACE. BED LOCKED AND IN LOWEST POSITON. ALL PT NEES MET AT THIS TIME.
--- NOTE | 2020-11-11 11:05 | NUR ---
GOT VERBAL PHONE ORDER FROM DR. TEE TO PUT WARE CATH
--- NOTE | 2020-11-11 12:54 | NUR ---
# 16 FR Remy catheter utilizing sterile technique. Immediate return of 1100 ml YELLOW CLEAR urine noted. Bedside drainage bag placed below level of bladder. Urine sample collected and sent to lab. Pt tolerated procedure WELL.
--- NOTE | 2020-11-11 12:55 | NUR ---
REPOSITIONED PT TO LEFT SIDE. WORKDAY SENIOR ASSOCIATE/PULSE OX IN PLACE. BED LOCKED AND IN LOWEST POSITION. ALL PT NEEDS MET AT THIS TIME. MEAL TRAY PROVIDED TO PT.
--- NOTE | 2020-11-11 13:15 | NUR ---
ERMD NOTIFIED OF PT'S BLOOD PRESSURE 84/53. 1300 ORDER OF LASIX WITHHELD. PT IN POSITION OF COMFORT. BED LOCKED AT LOWEST POSITION WITH SIDE RAILS X 2. CALL LIGHT WITHIN REACH.
--- NOTE | 2020-11-11 14:58 | NUR ---
PT REPOSITIONED TO RIGHT SIDE, WITH PILLOWS ON LEFT. PT PROVIDED WITH LUNCH TRAY. ALL PT NEEDS MET AT THIS TIME. EMERGENCY VETERINARIAN/PULSE OX IN PLACE. BED LOCKED AND IN LOWEST POSITION. SIDE RAILS X2.
--- NOTE | 2020-11-11 15:51 | NUR ---
CONSENT FOR BLOOD TRANSFUSION OBTAINED FROM PT
--- NOTE | 2020-11-11 16:12 | NUR ---
CALLED LAB TO SEE WHEN UNIT OF BLOOD FOR TRANSFUSION WILL BE READY, STATED 30 MIN.
--- NOTE | 2020-11-11 17:00 | NUR ---
PT REPOSITIONED TO LEFT SIDE, WITH PILLOWS ON RIGHT. PT PROVIDED WITH LUNCH TRAY. ALL PT NEEDS MET AT THIS TIME. LEATHER CRAFTSMAN/PULSE OX IN PLACE. BED LOCKED AND IN LOWEST POSITION. SIDE RAILS X2.
--- NOTE | 2020-11-11 17:20 | NUR ---
Consent signed per KEILY SHARMA agreeing to administration of blood. Blood has been type and crossmatched. Blood sent from blood bank. Information on unit of blood checked against patient wristband at bedside by two nurses. All information matches. Patient or responsible alliance party informed of potential complications associated with blood transfusion. Informed of possible transfusion reaction symptoms. Aware of need to notify nurse at once of itching, shortness of breath, flushing, feeling of impending doom, or other symptoms not previously present. Vital signs taken within 5 minutes prior to initiation of transfusion. RN will remain with patient for first 15 minutes of transfusion at which time vital signs will be re-assessed.
--- NOTE | 2020-11-11 18:32 | NUR ---
PT ASLEEP IN BED. EQUAL CHEST RUSE AND FALL. NADR FOR BLOOD TRANSFUSION NOTED. EXHIBIT ARTIST/PULSE OX IN PLACE. SEE BLOOD TRANSFUSION SHEET FOR TRANSFUSION VITALS. BED LOCKED AND IN LOWEST POSITION. SIDE RAILS X2.
--- NOTE | 2020-11-11 19:20 | NUR ---
REPORT GIVEN TO SONIA SORIANO. TRANSFER OF CARE AT THIS TIME.
--- NOTE | 2020-11-11 19:54 | NUR ---
RECIVED REPORT FROM JOSE SCOTT, CONTINUATION OF CARE GIVEN. BLOOD TRANSFUSION ENDED, VSS, AFEBRILE. PT REMAINS ON ORE SMELTER. BED IS LOCKED AND IN LOWEST POSITION.
[2020-11-11] MEDS: APIXABAN 2.5 MG TAB PO SCH (21:00)
[2020-11-11] MEDS: ATORVASTATIN 20 MG TAB PO SCH (21:00)
--- NOTE | 2020-11-12 01:54 | NUR ---
PATIENT CALLED AND GIVEN UPDATE ON PATIENT'S CONDITION. MAURICIO [phone]
[2020-11-12] MEDS: LEVOFLOXACIN 250 MG/D5 PREMIX 50 ML IV SCH (02:15)
[2020-11-12] MEDS: MIDODRINE 5 MG TAB PO SCH ×4 (02:20→19:42)
--- NOTE | 2020-11-12 02:23 | NUR ---
RECEIVED VERBAL ORDER FOR MIDODRINE 5MG TID TO INCREASE BP.
--- NOTE | 2020-11-12 03:00 | NUR ---
PERNIEL CARE PROVIDED FOR PATIENT SKIN LEFT CLEAN AND DRY. 500CC OF RIZWAN URINE EMPTIED. PATIENT BED LOACK AND IN LOWEST POSITION. PATIENT REPOSITIONED TO LEFT SIDE.
[2020-11-12] MEDS: FUROSEMIDE 40 MG/4 ML VIAL IVP SCH ×3 (05:00→21:00)
--- NOTE | 2020-11-12 05:16 | NUR ---
Patient appears to be resting comfortably in bed. Vital Signs within normal limits. Respirations even and unlabored.
--- NOTE | 2020-11-12 06:18 | NUR ---
PATIENT REPOSITIONED IN BED FOR COMFORT. PATIENT REMAINS ON PUBLIC HEALTH SANITARIAN TECHNICIAN. VSS. BED IS LOCKED AND IN LOWEST POSITON.
--- NOTE | 2020-11-12 07:20 | NUR ---
REPORT RECEIVED FROM SONIA SORIANO. TX OF CARE AT THIS TIME.
[2020-11-12] MEDS: LEVOTHYROXINE 0.05 MG TAB PO SCH (07:23)
--- NOTE | 2020-11-12 07:47 | NUR ---
REPORT GIVEN TO FIFI SCOTT. TRANSFER OF CARE GIVEN.
[2020-11-12] MEDS: APIXABAN 2.5 MG TAB PO SCH ×2 (09:30→21:00)
[2020-11-12] MEDS: DIGOXIN 0.125 MG TAB PO SCH (09:30)
[2020-11-12] MEDS: DOCUSATE SODIUM 100 MG GELCAP PO SCH (09:30)
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
--- NOTE | 2020-11-12 11:30 | NUR ---
CALLED LAB FOR CBC DRAW. BROOKS STATES NASIM WILL COME TO DRAW BLOOD SINCE SHE COULD NOT GET IT SUCCESSFULLY.
--- NOTE | 2020-11-12 11:45 | NUR ---
SPOKE TO PT'S MAURICIO VIA PHONE NUMBER [phone].
[2020-11-12] MEDS: LORazepam 1 MG TAB PO PRN (11:47)
[2020-11-12 13:32] LABS: BASOPHILS % (AUTO) 0.1 % (0.0-2.0); EOSINOPHILS # (AUTO) 0.1 K/uL (0-0.4); HEMATOCRIT 25.5 % (36-52); HEMOGLOBIN 8.2 g/dL (12.0-18.0); LYMPHOCYTES # (AUTO) 1.6 K/uL (2.0-11.5); LYMPHOCYTES % (AUTO) 14.8 % (20.5-51.1); MEAN CORPUSCULAR HEMOGLOBIN 27 pg (27-31); MEAN CORPUSCULAR HGB CONC 32 g/dL (33-37); MEAN CORPUSCULAR VOLUME 84.7 fL (80-94); MONOCYTES # (AUTO) 0.5 K/uL (0.8-1.0); MONOCYTES % (AUTO) 4.8 % (1.7-9.3); NEUTROPHILS # (AUTO) 8.6 K/uL (1.8-7.7); NEUTROPHILS % (AUTO) 79.3 % (42.2-75.2); PLATELET COUNT (AUTO) 384 K/uL (140-450); RED BLOOD CELL COUNT(AUTO) 3.01 MIL/uL (4.20-6.10); RED CELL DISTRIBUTION WIDTH 17.4 % (11.6-13.7); WHITE BLOOD COUNT (AUTO) 10.9 K/uL (4.8-10.8)
--- NOTE | 2020-11-12 14:50 | NUR ---
DR. TEE IS EVALUTING PT AT BEDSIDE. Addendum: 11/12/[address] TEE MADE AWARE OF PT'S LOW BLOOD PRESSURE.
[2020-11-12 16:22] LABS: ALBUMIN 2.4 g/dL (3.4-5.0); ANION GAP 13.7 (8-16); ASPARTATE AMINOTRANSFERASE 23 U/L (15-37); CHLORIDE 107 mmol/L (98-107); CREATININE 1.8 mg/dL (0.6-1.3); GLUCOSE 154 mg/dL (74-106); MAGNESIUM 1.6 mg/dL (1.8-2.4); POTASSIUM 3.7 mmol/L (3.5-5.1); SODIUM SERUM 147 mmol/L (136-145); TOTAL BILIRUBIN 0.3 mg/dL (0.0-1.0); UREA NITROGEN, BLOOD 29 mg/dL (7-18)
--- NOTE | 2020-11-12 18:35 | NUR ---
DINNER PROVIDED TO PT TO BEDSIDE. PT IS SLEEPING AT THIS MOMENT.
--- NOTE | 2020-11-12 19:30 | NUR ---
RECEIVED REPORT FROM FIFI SCOTT FOR CONTINUITY OF CARE.
--- NOTE | 2020-11-12 20:15 | NUR ---
PT LAYING IN BED BREATHING EVEN AND UNLABORED. O2 AT 2 L VIA NC SPO2 AT 98% TOLERATING WELL. BP AT THIS TIME IS: 88/66 PER PREVIOUS PRIMARY NURSE PT RUNS A BIT HYPOTENSIVE AND THAT DR IS AWARE. WILL CONTINUE TO MONITOR. PT ATE 65% OF HIS DINNER WITH NO DIFFICULTY. HE WAS CLEANED AND GIVEN NEW GOWN. BED WAS LOCKED AND IN LOWEST POSITION. ON CARDIAC MONITORING, BP MONITORING & PULSE OXIMETRY.
[2020-11-12] MEDS: ATORVASTATIN 20 MG TAB PO SCH (21:00)
--- NOTE | 2020-11-12 22:46 | NUR ---
PT LAYING IN BED IN NO ACUTE DISTRESS NOTED, BREATHING EVEN AND UNLABORED EVIDENCE BY RISE AND FALL OF CHEST WALL. SPO2 AT 98% ON 2 LITERS OF OXYGEN VIA NC. BED LOCKED AND PLACED IN LOWEST POSITION. ON CARDAIC MONITORING, BP MONITORING AND PULSE OXIMETRY.
[2020-11-13] MEDS: LEVOFLOXACIN 250 MG/D5 PREMIX 50 ML IV SCH (02:15)
--- NOTE | 2020-11-13 03:33 | NUR ---
PT LAYING IN BED IN NO ACUTE DISTRESS NOTED, BREATHING EVEN AND UNLABORED EVIDENCE BY RISE AND FALL OF CHEST WALL. SPO2 AT 98% ON 2 LITERS OF OXYGEN VIA NC. BP: 91/61. BED LOCKED AND PLACED IN LOWEST POSITION. ON CARDAIC MONITORING, BP MONITORING AND PULSE OXIMETRY.
[2020-11-13] MEDS: FUROSEMIDE 40 MG/4 ML VIAL IVP SCH ×3 (05:00→21:00)
--- NOTE | 2020-11-13 05:59 | NUR ---
PT LAYING IN BED IN NO ACUTE DISTRESS NOTED, BREATHING EVEN AND UNLABORED EVIDENCE BY RISE AND FALL OF CHEST WALL. SPO2 AT 98% ON 2 LITERS OF OXYGEN VIA NC. BP: 81/46. HELD LASIX PER MEDICATION PARAMETERS. BED LOCKED AND PLACED IN LOWEST POSITION. ON CARDAIC MONITORING, BP MONITORING AND PULSE OXIMETRY.
[2020-11-13] MEDS: LEVOTHYROXINE 0.05 MG TAB PO SCH (06:30)
[2020-11-13] MEDS: MIDODRINE 5 MG TAB PO SCH ×3 (07:00→23:44)
--- NOTE | 2020-11-13 07:08 | NUR ---
PT YELLING/CONFUSED. REMOVING HIS CLOTHES AND ATTEMPTING TO GET OUT THE BED. PT STATES, " I NEED TO GET OUT OF HERE GET ME MY SHORTS". HE WAS REORIENTED TO PLACE. PT AGREED TO FOLLOW REDIRECTION. BED WAS LOCKED AND PLACED IN LOWEST POSITION. ON CARDIAC MONITORING, BP MONITORING AND PULSE OXIMETRY.
--- NOTE | 2020-11-13 07:30 | NUR ---
GAVE REPORT TO AMARJIT SCOTT FOR CONTINUITY OF CARE.
--- NOTE | 2020-11-13 07:31 | NUR ---
Received report from Roberto Carlos Stewart, transfer of care at this time.
--- NOTE | 2020-11-13 08:10 | NUR ---
SPOKE TO PT'S MAURICIO VIA PHONE NUMBER [phone].
[2020-11-13 08:15] LABS: BASOPHILS # (AUTO) 0.1 K/uL (0.00-0.22); BASOPHILS % (AUTO) 0.5 % (0.0-2.0); EOSINOPHILS # (AUTO) 0.3 K/uL (0-0.4); EOSINOPHILS % (AUTO) 2.4 % (0.0-4.0); HEMATOCRIT 26.9 % (36-52); HEMOGLOBIN 8.5 g/dL (12.0-18.0); LYMPHOCYTES # (AUTO) 2.1 K/uL (2.0-11.5); LYMPHOCYTES % (AUTO) 15.5 % (20.5-51.1); MEAN CORPUSCULAR HEMOGLOBIN 27 pg (27-31); MEAN CORPUSCULAR HGB CONC 32 g/dL (33-37); MEAN CORPUSCULAR VOLUME 83.6 fL (80-94); MONOCYTES # (AUTO) 0.6 K/uL (0.8-1.0); MONOCYTES % (AUTO) 4.3 % (1.7-9.3); NEUTROPHILS # (AUTO) 10.6 K/uL (1.8-7.7); NEUTROPHILS % (AUTO) 77.3 % (42.2-75.2); PLATELET COUNT (AUTO) 408 K/uL (140-450); RED BLOOD CELL COUNT(AUTO) 3.21 MIL/uL (4.20-6.10); RED CELL DISTRIBUTION WIDTH 17.9 % (11.6-13.7); WHITE BLOOD COUNT (AUTO) 13.8 K/uL (4.8-10.8)
[2020-11-13] MEDS: DIGOXIN 0.125 MG TAB PO SCH (09:24)
[2020-11-13] MEDS: APIXABAN 2.5 MG TAB PO SCH ×2 (09:24→23:49)
[2020-11-13] MEDS: DOCUSATE SODIUM 100 MG GELCAP PO SCH (09:24)
[2020-11-13 09:39] LABS: ALBUMIN 2.3 g/dL (3.4-5.0); ANION GAP 11.9 (8-16); ASPARTATE AMINOTRANSFERASE 33 U/L (15-37); CARBON DIOXIDE 32.5 mmol/L (21-32); CHLORIDE 106 mmol/L (98-107); CREATININE 1.7 mg/dL (0.6-1.3); GLUCOSE 128 mg/dL (74-106); MAGNESIUM 1.6 mg/dL (1.8-2.4); POTASSIUM 3.4 mmol/L (3.5-5.1); SODIUM SERUM 147 mmol/L (136-145); TOTAL BILIRUBIN 0.5 mg/dL (0.0-1.0); UREA NITROGEN, BLOOD 26 mg/dL (7-18)
--- NOTE | 2020-11-13 10:16 | NUR ---
Pt has eyes closed, visible equal rise and fall of chest, VSS, will continue to monitor.
--- NOTE | 2020-11-13 11:58 | NUR ---
Pt repositioned for comfort, HOB elevated, bed locked, VSS, will continue to monitor.
--- NOTE | 2020-11-13 12:02 | NUR ---
Spoke with Alysha Garrison [phone] for possible d/[place] orders [place] [facility] Reported that there are no orders at this time, will contact Dr. Danielle for further orders.
--- NOTE | 2020-11-13 14:20 | NUR ---
Report to SONIA Belle. Transfered all care at this time.
--- NOTE | 2020-11-13 14:35 | NUR ---
Patient resting with eyes closed, visible rise and fall of the chest. VSS
--- NOTE | 2020-11-13 22:51 | NUR ---
ASSUMED CARE AT THIS TIME
[2020-11-13] MEDS: ALBUMIN HUMAN 25% 50 ML IV SCH (23:47)
[2020-11-13] MEDS: ATORVASTATIN 20 MG TAB PO SCH (23:50)
--- NOTE | 2020-11-14 01:00 | NUR ---
INCONTINENT OF MODERATE AMOUNT LIQUID BROWN STOOL. CLEANED, LINENS CHANGED AND REPOSITIONED.
--- NOTE | 2020-11-14 01:14 | NUR ---
EMPTIED OUT WARE CATHETER 1700 ML OF YELLOW URINE OUTPUT
--- NOTE | 2020-11-14 04:00 | NUR ---
RESTING WIT EYES CLOSED. AWAKENS EASILY VOICES NO COMPLAINTS. DRINK OF MILK GIVEN. TOLERATED WELL. IS VERY PLEASANT
[2020-11-14] MEDS: FUROSEMIDE 40 MG/4 ML VIAL IVP SCH ×2 (09:00→13:00)
--- NOTE | 2020-11-14 09:34 | NUR ---
PT BP /, ATTEMPTING TO CONTACT DR TEE
[2020-11-14] MEDS ORDERED: D5W IV ONE (09:37)
[2020-11-14] MEDS ORDERED: LEVOFLOXACIN IV ONE (09:37)
--- NOTE | 2020-11-14 09:42 | NUR ---
PER DR TEE TO START ALBUMIN AND DO CXRAY
[2020-11-14] MEDS: ALBUMIN HUMAN 25% 50 ML IV SCH ×2 (09:51→16:13)
[2020-11-14 10:14] LABS: BASOPHILS # (AUTO) 0.1 K/uL (0.00-0.22); BASOPHILS % (AUTO) 0.6 % (0.0-2.0); EOSINOPHILS # (AUTO) 0.3 K/uL (0-0.4); EOSINOPHILS % (AUTO) 1.9 % (0.0-4.0); HEMATOCRIT 27.4 % (36-52); HEMOGLOBIN 8.5 g/dL (12.0-18.0); LYMPHOCYTES # (AUTO) 2.5 K/uL (2.0-11.5); LYMPHOCYTES % (AUTO) 13.7 % (20.5-51.1); MEAN CORPUSCULAR HEMOGLOBIN 26 pg (27-31); MEAN CORPUSCULAR HGB CONC 31 g/dL (33-37); MEAN CORPUSCULAR VOLUME 83.5 fL (80-94); MONOCYTES # (AUTO) 0.5 K/uL (0.8-1.0); NEUTROPHILS # (AUTO) 14.6 K/uL (1.8-7.7); NEUTROPHILS % (AUTO) 80.8 % (42.2-75.2); PLATELET COUNT (AUTO) 353 K/uL (140-450); RED BLOOD CELL COUNT(AUTO) 3.28 MIL/uL (4.20-6.10); RED CELL DISTRIBUTION WIDTH 17.7 % (11.6-13.7); WHITE BLOOD COUNT (AUTO) 18.1 K/uL (4.8-10.8)
--- NOTE | 2020-11-14 10:14 | NUR ---
11/14/20 RD INITIAL ASSESSMENT COMPLETED PLEASE REFER TO NUTRITION ASSESSMENT UNDER CARE ACTIVITY FOR ESTIMATED NUTRITIONAL NEEDS. 1. RECOMMEND CARDIAC, CCHO [address] TO FOLLOW-UP 3-5 DAYS, MODERATE RISK ALBERTINA RUDD RD
[2020-11-14 10:39] LABS: ALBUMIN 2.3 g/dL (3.4-5.0); ANION GAP 11.9 (8-16); ASPARTATE AMINOTRANSFERASE 30 U/L (15-37); CARBON DIOXIDE 31.5 mmol/L (21-32); CHLORIDE 104 mmol/L (98-107); CREATININE 1.7 mg/dL (0.6-1.3); GLUCOSE 153 mg/dL (74-106); MAGNESIUM 1.3 mg/dL (1.8-2.4); POTASSIUM 3.4 mmol/L (3.5-5.1); SODIUM SERUM 144 mmol/L (136-145); TOTAL BILIRUBIN 0.6 mg/dL (0.0-1.0); UREA NITROGEN, BLOOD 27 mg/dL (7-18)
[2020-11-14] MEDS: LEVOFLOXACIN 250 MG/D5 PREMIX 50 ML IV SCH (11:56)
[2020-11-14] MEDS: MIDODRINE 5 MG TAB PO SCH ×2 (12:51→13:31)
[2020-11-14] MEDS: APIXABAN 2.5 MG TAB PO SCH (12:51)
[2020-11-14] MEDS: LEVOTHYROXINE 0.05 MG TAB PO SCH (12:51)
[2020-11-14] MEDS: DOCUSATE SODIUM 100 MG GELCAP PO SCH (12:51)
[2020-11-14] MEDS: DIGOXIN 0.125 MG TAB PO SCH (12:52)
--- NOTE | 2020-11-14 13:26 | NUR ---
PER DR TEE TO HOLD LASIX, GIVE MIDODRINE, AND GIVE ALBUMIN HUMAN AT 4PM CONSIDERING LAST MEDICATIONS GIVEN RECENTLY. BP 80/53, HR 135. DR TEE AWARE
--- NOTE | 2020-11-14 14:03 | NUR ---
PT FINISHED EATING LUNCH. PT CHANGED GOWN AND CLEANED.
--- NOTE | 2020-11-14 14:05 | NUR ---
PT PRESSURE ULCER SACRAL AREA CHANGED DRESSING, DR TEE MADE AWARE PRESSURE ULCER DEEP. STATES NO WOUND CARE NURSE
[2020-11-14] MEDS ORDERED: ALBUMIN HUMAN 25% 50 ML IV ONE (16:09)
--- NOTE | 2020-11-14 18:23 | NUR ---
900ML OF CLEAR YELLOW URINE EMPTIED FROM WARE CATHETER
--- NOTE | 2020-11-14 19:21 | NUR ---
REPORT RECEIVED FROM CONSTANTINO SCOTT
--- NOTE | 2020-11-14 20:00 | NUR ---
PT ATE 35% OF DINNER TRAY. PT REMAIN ON BEDSIDE MONITOR AND 02 @ 4L NC
--- NOTE | 2020-11-14 21:00 | NUR ---
PT REMAINS ON BEDSIDE MONITOR, O2 @ 4L NC. PT POSITIONED IN BED FOR COMFORT AND TO ALLEVIATE PRESURE ON COCCXY AREA. F/C DRAINING CLEAR RIZWAN URINE, PILLOW PLACED UNDER BILATERAL HEELS. BED IN LOWEST POSITION AND SIDERAIL UP X 2 FOR PT SAFETY.
--- NOTE | 2020-11-14 23:15 | NUR ---
SPOKW WITH PT'S MAURICIO AND GAVE UPDATE ON PT'S STATUS.
[2020-11-15] MEDS: MIDODRINE 5 MG TAB PO SCH ×4 (00:05→17:21)
[2020-11-15] MEDS: FUROSEMIDE 40 MG/4 ML VIAL IVP SCH ×4 (00:06→21:00)
[2020-11-15] MEDS: APIXABAN 2.5 MG TAB PO SCH ×3 (00:06→21:35)
[2020-11-15] MEDS: ATORVASTATIN 20 MG TAB PO SCH ×2 (00:07→21:35)
--- NOTE | 2020-11-15 00:07 | NUR ---
PT REPOSITIONED IN BED WITH PILLOW UNDER BUTTOCKS TO ALLEVIATE PRESSURE ON COCCYZ. PT ALSO MEDICATED WITH NORCO FOR PAIN CONTROL FOR COCCYX.
[2020-11-15] MEDS: HYDROcodone/APAP 5/325 MG 1 TAB TAB PO PRN ×3 (00:34→14:46)
--- NOTE | 2020-11-15 01:27 | NUR ---
PT REPOSITIONED IN BED, LINENS CHANGED, CLEAN DRESSINGS APPLIED TO TO COCCXY AND LLE AND PILLOWS PLACED UNDER PRESSURE AREAS.
[2020-11-15] MEDS: LEVOFLOXACIN 250 MG/D5 PREMIX 50 ML IV SCH (01:34)
--- NOTE | 2020-11-15 04:00 | NUR ---
WAS GOING TO REPOSITON PT WITH PILLOW, PT STATES HE'S VERY COMFORTABLE AND NOT HAVING ANY PAIN AT THIS TIME, DID NOT WANT TO BE REPOSITIONED AT THIS TIME. WILL CONTINUE TO MONITOR
--- NOTE | 2020-11-15 05:40 | NUR ---
PT REPOSITIONED IN BED. 600ML OF CLEAR RIZWAN COLORED URINE EMPTIED FOR F/C BAG
[2020-11-15] MEDS: LEVOTHYROXINE 0.05 MG TAB PO SCH (05:55)
--- NOTE | 2020-11-15 05:59 | NUR ---
PT REQUESTION TEREZA FOR PAIN TO BUTTOCKS, MEDICATED ORDERED
--- NOTE | 2020-11-15 07:20 | NUR ---
Pt report given to CONSTANTINO SCOTT. Transfer of care at this time.
[2020-11-15] MEDS: DOCUSATE SODIUM 100 MG GELCAP PO SCH (09:00)
[2020-11-15] MEDS: DIGOXIN 0.125 MG TAB PO SCH (09:00)
--- NOTE | 2020-11-15 09:41 | NUR ---
PT ALERT AND AWAKE, BREATHING EVEN AND UNLABORED. STATES HE IS FEELING FINE.
--- NOTE | 2020-11-15 09:55 | NUR ---
PT IS EATING BREAKFAST AT THIS TIME
--- NOTE | 2020-11-15 09:57 | NUR ---
PT IS AOX4 AT THIS POINT
[2020-11-15 10:10] LABS: BASOPHILS # (AUTO) 0.1 K/uL (0.00-0.22); BASOPHILS % (AUTO) 0.4 % (0.0-2.0); EOSINOPHILS # (AUTO) 0.6 K/uL (0-0.4); EOSINOPHILS % (AUTO) 3.6 % (0.0-4.0); HEMATOCRIT 27.8 % (36-52); HEMOGLOBIN 8.6 g/dL (12.0-18.0); LYMPHOCYTES # (AUTO) 2.8 K/uL (2.0-11.5); MEAN CORPUSCULAR HEMOGLOBIN 26 pg (27-31); MEAN CORPUSCULAR HGB CONC 31 g/dL (33-37); MEAN CORPUSCULAR VOLUME 83.2 fL (80-94); MONOCYTES # (AUTO) 0.7 K/uL (0.8-1.0); MONOCYTES % (AUTO) 4.4 % (1.7-9.3); NEUTROPHILS # (AUTO) 12.5 K/uL (1.8-7.7); NEUTROPHILS % (AUTO) 74.6 % (42.2-75.2); PLATELET COUNT (AUTO) 315 K/uL (140-450); RED BLOOD CELL COUNT(AUTO) 3.34 MIL/uL (4.20-6.10); RED CELL DISTRIBUTION WIDTH 18.1 % (11.6-13.7); WHITE BLOOD COUNT (AUTO) 16.7 K/uL (4.8-10.8)
[2020-11-15 10:34] LABS: ALBUMIN 2.3 g/dL (3.4-5.0); ANION GAP 7.7 (8-16); ASPARTATE AMINOTRANSFERASE 24 U/L (15-37); CARBON DIOXIDE 36.6 mmol/L (21-32); CHLORIDE 101 mmol/L (98-107); CREATININE 1.8 mg/dL (0.6-1.3); GLUCOSE 144 mg/dL (74-106); MAGNESIUM 1.7 mg/dL (1.8-2.4); POTASSIUM 3.3 mmol/L (3.5-5.1); SODIUM SERUM 142 mmol/L (136-145); TOTAL BILIRUBIN 0.6 mg/dL (0.0-1.0); UREA NITROGEN, BLOOD 26 mg/dL (7-18)
--- NOTE | 2020-11-15 12:40 | NUR ---
Patient will be admitted to care of Dr Danielle. Admited to tele. Will go to room 110A. Belongings list completed. Report to Larisa SCOTT.
--- NOTE | 2020-11-15 12:43 | NUR ---
dr arias made aware pt BP 87/51
--- NOTE | 2020-11-15 12:45 | NUR ---
PT TAKEN TO ROOM
[2020-11-15 12:55] VITALS: BP 91/73
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
--- NOTE | 2020-11-15 14:14 | NUR ---
MIDODRINE GIVEN FOR LOW BP 91/73, EDUCATION PROVIDED, PATIENT TOLERATED WELL. SAFETY MEASURES IN PLACE, WILL CONTINUE TO MONITOR.
--- NOTE | 2020-11-15 14:50 | NUR ---
NORCO GIVEN FOR GENERAL BODYACHE. PAIN LEVEL /10. K DUR GIVEN FOR POTASSIUM LEVEL 3.1. EDUCATION PROVIDED, SAFETY MEASURES IN PLACE, WILL CONTINUE TO MONITOR.
[2020-11-15 16:00] VITALS: BP 94/50
[2020-11-15] MEDS ORDERED: MAG SULF 2000 MG/WATER PREMIX 50 ML IV SCH (16:00)
[2020-11-15] MEDS ORDERED: PRO5 PO (16:09)
[2020-11-15] MEDS ORDERED: [UNRECOGNIZED DRUG - CODE] IV (16:09)
[2020-11-15] MEDS ORDERED: MAGNESIUM OXIDE 400 MG TAB PO ONE (16:40)
--- NOTE | 2020-11-15 19:30 | NUR ---
ENDORSED PATIENT TO MATTRESS STUFFER RN FOR CONTINUITY OF CARE. PATIENT IN STABLE CONDITION.
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
[2020-11-15 20:00] VITALS: BP 95/62
--- NOTE | 2020-11-15 21:35 | NUR ---
VS STABLE. SCHEDULED MEDS GIVEN ORDERED. PT TURNED AND REPOSITIONED IN BED. PT DENIES ANY PAIN OR DISCOMFORT AT THIS TIME. SAFETY MEASURES IN PLACE. CALL LIGHT WITHIN REACH, WILL CONTINUE TO MONITOR. Addendum: 11/16/20 at 0414 by Kamran Bella RN LASIX HELD PER PROTOCOL
--- NOTE | 2020-11-15 22:34 | NUR ---
ROUNDS MADE. PT ASLEEP WITH HOB ELEVATED. O2 IN PLACE. NO S/SX OF DISTRESS NOTED. PT KEPT COMFORTABLE. SAFETY MEASURES IN PLACE. CALL LIGHT WITHIN REACH. WILL CONTINUE TO MONITOR.
[2020-11-16] VITALS: BP 86/63
--- NOTE | 2020-11-16 00:08 | NUR ---
VS STABLE. PT IN BED RESTING. O2 IN PLACE. PT REPOSITIONED IN BED. ASSISTED PT IN DRINKING WATER. PT KEPT COMFORTABLE. SAFETY MEASURES IN PLACE. CALL LIGHT WITHIN REACH. WILL CONTINUE TO MONITOR.
--- NOTE | 2020-11-16 02:17 | NUR ---
PT ASLEEP. VISIBLE CHEST RISE AND FALL NOTED. PT NOT IN DISTRESS. NO S/SX OF PAIN OR DISCOMFORT NOTED. PT KEPT COMFORTABLE. SAFETY MEASURES IN PLACE. CALL LIGHT WITHIN REACH. WILL CONTINUE TO MONITOR.
[2020-11-16 04:00] VITALS: BP 85/58
--- NOTE | 2020-11-16 04:20 | NUR ---
VS STABLE. AMELIA CARE, WOUND CARE, CATHETER CARE DONE. PT TOLERATED CARE WELL. WILL CONTINUE TO MONITOR.
[2020-11-16] MEDS: HYDROcodone/APAP 5/325 MG 1 TAB TAB PO PRN (04:55)
--- NOTE | 2020-11-16 04:55 | NUR ---
PT COMPLAINING OF BACK AND NECK PAIN. PRN NORCO GIVEN ORDERED. WILL CONTINUE TO MONITOR.
[2020-11-16] MEDS: FUROSEMIDE 40 MG/4 ML VIAL IVP SCH ×2 (05:00→13:00)
[2020-11-16] MEDS: LEVOTHYROXINE 0.05 MG TAB PO SCH (06:32)
--- NOTE | 2020-11-16 07:25 | NUR ---
RECEIVED REPORT FROM HUNTER SKIN DIVER RN FOR CONTINUITY OF CARE. PATIENT ASLEEP IN BED WITH SUPINE POSITION. RESPIRATORY EVEN AND UNLABORED WITH 4L NC. SKIN DRY. COOL ON HANDS. MULTIPLE WOUNDS NOTED AND DRESSING INTACT. IV SITE LEFT AC SALINE LOCK. NO ACUTE DISTRESS NOTED AT THIS TIME. SAFETY MEASURES IN PLACE, WILL CONTINUE TO MONITOR.
--- NOTE | 2020-11-16 07:34 | NUR ---
endorsed to day shift nurse for continuity of care
[2020-11-16 08:00] VITALS: BP 87/53
[2020-11-16] MEDS: DOCUSATE SODIUM 100 MG GELCAP PO SCH (08:30)
[2020-11-16] MEDS: MIDODRINE 5 MG TAB PO SCH ×3 (08:31→17:17)
[2020-11-16] MEDS: DIGOXIN 0.125 MG TAB PO SCH (08:31)
[2020-11-16] MEDS: APIXABAN 2.5 MG TAB PO SCH (08:32)
--- NOTE | 2020-11-16 08:37 | NUR ---
SCHEDULED MORNING MEDICATIONS GIVEN, EDUCATION PROVIDED. BP LOW 87/53. O2 SAT 97% WITH 4L NC, DECREASED O2 SAT TO 3L. NO ACUTE DISTRESS NOTED AT THIS TIME. WILL CONTINUE TO MONITOR.
--- NOTE | 2020-11-16 09:12 | NUR ---
DC DIAMOND GRADER: SPOKE TO TERRIE BORJA AT [facility] [phone] SHE IS GOING TO ACTIVATE WILL CALL TRANSPORTATION FOR TODAY WITH [facility] FOR 12:00 PM
--- NOTE | 2020-11-16 10:15 | NUR ---
PATIENT ASLEEP IN BED WITH NO ACUTE DISTRESS NOTED. SAFETY MEASURES IN PLACE, WILL CONTINUE TO MONITOR.
[2020-11-16 12:00] VITALS: BP 94/63
--- NOTE | 2020-11-16 13:05 | NUR ---
CHECKED THE PATIENT. NO ACUTE DISTRESS WITH 3L NC. SAFETY MEASURES IN PLACE, WILL CONTINUE TO MONITOR.
--- NOTE | 2020-11-16 14:38 | NUR ---
WOUND CARE PERFORMED, PHOTOS TAKEN, DRESSING CHANGED. PATIENT TOLERATED THE PROCEDURE WELL. SAFETY MEASURES IN PLACE, WILL CONTINUE TO MONITOR.
[2020-11-16 16:00] VITALS: BP 94/51
--- NOTE | 2020-11-16 17:17 | NUR ---
MIDODRINE GIVEN FOR BP 94/51. EDUCATION PROVIDED. SAFETY MEASURES IN PLACE. WILL CONTINUE TO MONITOR.
--- NOTE | 2020-11-16 17:55 | NUR ---
PATIENT WAS PICKED UP AND TRANSFER BACK TO [facility]. PATIENT IN STABLE CONDITION.
== END 2020-11-16 17:55 | DRG 291 ==
LOC: MED 13:11 → MTU 11-10 01:48
PROVIDERS: ADMIT Hospitalist; ATTEND Hospitalist
PROC: 30233N1 Transfusion of Nonautologous Red Blood Cells into Peripheral Vein, Percutaneous Approach (ICD-10-PCS; principal; 2020-11-11)
DX: I13.0 Hypertensive heart and chronic kidney disease with heart failure and stage 1 through stage 4 chronic kidney disease, or unspecified chronic kidney disease (principal); G93.41 Metabolic encephalopathy; J96.01 Acute respiratory failure with hypoxia; N17.1 Acute kidney failure with acute cortical necrosis; I50.43 Acute on chronic combined systolic (congestive) and diastolic (congestive) heart failure; N18.4 Chronic kidney disease, stage 4 (severe); E87.0 Hyperosmolality and hypernatremia; D50.9 Iron deficiency anemia, unspecified; I48.91 Unspecified atrial fibrillation; E87.6 Hypokalemia; E03.9 Hypothyroidism, unspecified; E11.22 Type 2 diabetes mellitus with diabetic chronic kidney disease; E88.09 Other disorders of plasma-protein metabolism, not elsewhere classified; I95.9 Hypotension, unspecified; E78.5 Hyperlipidemia, unspecified; D72.829 Elevated white blood cell count, unspecified; Z20.828 Contact with and (suspected) exposure to other viral communicable diseases; Z88.0 Allergy status to penicillin; Z79.899 Other long term (current) drug therapy; Z79.01 Long term (current) use of anticoagulants
CPT/HCPCS: 36415; 36600; 70450; 71045; 80053; 81003; 82550; 82728; 82803; 83605; 83615; 83735; 83880; 84484; 85025; 85379; 85384; 85610; 85730; 86140; 86886; 86900; 86901; 86920; 87040; 87070; 87081; 87086; 87205; 87420; 87804; 93005; 96361; 96374; 96375; 99291; J1644; J1940; J1956; J2270; J2405; J3010; J3490; J7060; P9016; P9046; U0003